=== PATIENT | male | born 1950 | race Caucasian/White ===

== ENCOUNTER 2018-03-06 19:49 | Inpatient (IN) | payer MEDICARE, MEDICAID ==
--- NOTE | 2018-03-06 20:07 | ED Physician Chart ---
ED Chief Complaint/HPI - Patient Information Date Seen:: 03/06/18 Time Seen:: 20:03 Chief Complaint:: AGITATION History of Present Illness:: 67 YR OLD MALE FOR AGITATION FROM [facility] HX OF PSYCH PROBLEMS PT WITH HALUCINATIONS NO CP OR SOB NO NVD Historian:: EMS, Medical Records ED Review of Systems - Review of Systems General/Constitutional: No fever, No chills, No weight loss, No weakness, No diaphoresis, No edema, No loss of appetite Skin: No skin lesions, No rash, No bruising Head: No headache, No light-headedness Eyes: No loss of vision, No pain, No diplopia ENT: No earache, No nasal drainage, No sore throat, No tinnitus Neck: No neck pain, No swelling, No thyromegaly, No stiffness, No mass noted Cardio Vascular: No chest pain, No palpitations, No PND, No orthopnea, No edema Pulmonary: No SOB, No cough, No sputum, No wheezing GI: No nausea, No vomiting, No diarrhea, No pain, No melena, No hematochezia, No constipation, No hematemesis G/U: No dysuria, No frequency, No hematuria Musculoskeletal: No bone or joint pain, No back pain, No muscle pain Endocrine: No polyuria, No polydipsia Psychiatric: No prior psych history, No depression, No anxiety, No suicidal ideation Hematopoietic: No bruising, No lymphadenopathy Allergic/Immuno: No urticaria, No angioedema Neurological: No syncope, No focal symptoms, No weakness, No paresthesia, No headache, No seizure, No dizziness, No confusion, No vertigo ED Past Medical History - Past Medical History Past Medical History: No significant medical hx ED Physical Exam - Physical Examination General/Constitutional: Awake, Well-developed, well-nourished, Alert, No distress, GCS 15, Non-toxic appearing, Ambulatory Head: Atraumatic Eyes: Lids, conjuctiva normal, PERRL, EOMI Skin: Nl inspection, No rash, No skin lesions, No ecchymosis, Well hydrated, No lymphadenopathy ENMT: External ears, nose nl, Nasal exam nl, Lips, teeth, gums nl Neck: Nontender, Full ROM w/o pain, No JVD, No nuchal rigidity, No bruit, No mass, No stridor Respiratory: Nl effort/Exclusion, Clear to Auscultation, No Wheeze/Rhonchi/Rales Cardio Vascular: RRR, No murmur, gallop, rubs, NL S1 S2 GI: No tenderness/rebounding/guarding, No organomegaly, No hernia, Normal BS's, Nondistended, No mass/bruits, No McBurney tenderness : No CVA tenderness Extremities: No tenderness or effusion, Full ROM, normal strength in all extremities, No edema, Normal digits & nails Neuro/Psych: Alert/oriented, DTR's symmetric, Normal sensory exam, Normal motor strength, Judgement/insight normal, Mood normal, Normal gait, No focal deficits Misc: Normal back, No paraspinal tenderness ED Assessment - Assessment General Assessment: AGITATION HALLUCINATION FOR PSYCH EVAL ED Septic Shock - . Is Septic Shock (SBP<90, OR Lactate>4 mmol\L) present?: No ED Discharge Plan - Patient Disposition Admit/Discharge/Transfer: Acute Care w/in this hosp Condition at Disposition: Stable
[2018-03-06 20:40] LABS: % EOSINOPHILS 2.7 % (0.0-5.0); % LYMPHOCYTES 21.6 % (20.0-50.0); % MONOCYTES 5.2 % (2.0-10.0); % NEUTROPHILS 70.5 % (40.0-80.0); EOSINOPHILE ABSOLUTE 0.2 Th/cmm (0.1-0.4); HEMATOCRIT 46.3 % (41.0-60); HEMOGLOBIN 15.6 gm/dL (12-16); LYMPHOCYTE ABSOLUTE 1.7 Th/cmm (1.5-3.0); MEAN CELL VOLUME 88.1 fl (80-99); MEAN CORPUSCULAR HEMOGLOBIN 29.6 pg (27.0-31.0); MEAN CORPUSCULAR HGB CONC 33.6 pg (28.0-36.0); MEAN PLATELET VOLUME 8.6 fl; MONOCYTE ABSOLUTE 0.4 Th/cmm (0.3-1.0); NEUTROPHILE ABSOLUTE 5.4 Th/cmm (1.8-8.0); PLATELET COUNT 201 Th/cmm (150-400); RED BLOOD COUNT 5.25 Mil/cmm (3.80-5.80); WHITE BLOOD COUNT 7.7 Th/cmm (4.8-10.8)
[2018-03-06 20:57] LABS: ALB/GLOB RATIO 1.6 (1.0-1.8); ALBUMIN 4.6 gm/dL (4.2-5.5); ALKALINE PHOSPHATASE 67 U/L (34-104); ANION GAP 9.4 (7.0-16.0); BILIRUBIN,TOTAL 0.9 mg/dL (0.3-1.0); BUN - UREA NITROGEN 28 mg/dL (7-25); CALCIUM SERUM 9.9 mg/dL (8.6-10.3); CARBON DIOXIDE 27.4 mEq/L (21.0-31.0); CHLORIDE 106 mEq/L (98-107); GFR AFRICAN-AMERICAN > 60.0 ml/min (>90); GFR NON AFRICAN-AMERICAN > 60.0 ml/min; GLUCOSE 100 mg/dL (70-105); POTASSIUM SERUM 3.8 mEq/L (3.5-5.1); SGOT 12 U/L (13-39); SGPT/ALT 9 U/L (7-52); SODIUM SERUM 139 mEq/L (136-145); TOTAL PROTEIN,SERUM 7.4 gm/dL (6.0-8.3)
[2018-03-07 00:46] VITALS: BP 109/68
[2018-03-07] MEDS ORDERED: Maalox 30 mL Cup PO PRN (00:46)
[2018-03-07] MEDS ORDERED: Magnesium Hydroxide (MOM) 30 mL UDC PO PRN ×2 (00:46→16:55)
[2018-03-07] MEDS ORDERED: CHOLECALCIFEROL PO SCH (09:00)
[2018-03-07] MEDS: Escitalopram Oxalate 10 MG, Escitalopram Oxalate 5 MG PO SCH (09:42)
[2018-03-07] MEDS: Multivitamin Tab PO SCH (09:42)
--- NOTE | 2018-03-07 10:36 | Diagnostic Imaging Report ---
Portable chest x-ray History: Shortness of breath Allowing for portable technique the heart size is normal. No focal pulmonary parenchymal processes. No hilar or mediastinal abnormalities. Degenerative changes seen to the spine. Impression: No acute abnormalities.
[2018-03-07] MEDS ORDERED: TIMOLOL MALEATE EACH EYE SCH (17:00)
--- NOTE | 2018-03-07 20:39 | History & Physical ---
ADMIT DATE: HISTORY OF PRESENT ILLNESS: The patient is a 67-year-old male with long history of dementia, degenerative joint disease, admitted to [facility] under Dr. Wiseman's service. The patient is a poor historian. No fever, no chills, nausea, no vomiting. PAST MEDICAL HISTORY: Degenerative joint disease, dementia. PAST SURGICAL HISTORY: No recent surgery. ALLERGIES: ASPIRIN. MEDICATIONS: Follow admission reconciliation. SOCIAL HISTORY: No smoking, no alcohol, no drug. FAMILY HISTORY: Noncontributory. REVIEW OF SYSTEMS: IMMUNO SYSTEM: No history of chronic immune disorder. CARDIOVASCULAR SYSTEM: No coronary artery disease. ENDOCRINE SYSTEM: No diabetes or thyroid problem. GASTROINTESTINAL SYSTEM: No upper or lower GI bleeding. NEUROLOGICAL SYSTEM: No seizure disorder. SKELETOMUSCULAR SYSTEM: No muscular dystrophy. HEMATOLOGIC SYSTEM: No bleeding tendencies. RESPIRATORY SYSTEM: No asthma. GENITOURINARY: No dysuria or hematuria. PHYSICAL EXAMINATION: GENERAL: The patient is awake, not coherent. VITAL SIGNS: His temperature is 98.2, heart rate 68, blood pressure of 105/57. HEENT: Normocephalic. Pupils reacting equally to light and accommodation. Sclerae are clear. NECK: Supple. Negative for lymphadenopathy, JVD or bruit. CHEST: Entry of air bilateral normal. No rhonchi or wheezing. HEART: S1, S2 normal. No gallop rhythm. ABDOMEN: Soft, bowel sounds positive. EXTREMITIES: No edema. NEUROLOGICAL: He is awake, alert, not fully oriented. No focal motor or sensory deficit. ASSESSMENT: 1. Degenerative joint disease. 2. Dementia. 3. Psychosis. PLAN: The patient admitted to the hospital under Dr. Wiseman's service. The medical problem addressed during hospitalization is psychosis and depression. Medical problem to be addressed at discharge is degenerative joint disease, dementia. The patient is clinically stable for activity. Thank you, Dr. Wiseman, for asking me to see your patient. JOB# [id number]
--- NOTE | 2018-03-07 22:49 | Psychiatric Evaluation ---
DATE OF SERVICE: 03/07/2018 JUSTIFICATION FOR HOSPITALIZATION: The patient brought in from a long-term hallucinating, compensating from a psychiatric perspective. HISTORY OF PRESENT ILLNESS: A 67-year-old male agitated from a long-term. He states he does not know why he is here. Denies depression, denies anxiety. It seems that he was decompensating, hallucinating. The patient notes he is sleeping "okay" eating "okay." Staff noting he appears fatigue, withdrawn, poor orientation as noted. The patient was apparently also quite aggressive at the long-term. PAST PSYCHIATRIC HISTORY: Unclear, but he states he has been to the medical center hospitals before. Under medical please see H and P. SOCIAL HISTORY: Born in [place]. He states that he is . He has 2 children. MEDICATIONS: Noted. MENTAL STATUS EXAMINATION: Stated age. Fair eye contact. Speech within normal limits. Affect flat. Thought processes were somewhat disoriented. Denying any overt SI or HI. Denying any overt psychotic symptoms. Insight and judgment questionable. PROVISIONAL DIAGNOSES: Mood, unspecified; anxiety, unspecified; psychosis, unspecified. Under medical please see full H and P. ESTIMATED LENGTH OF STAY: 5-7 days. ASSESSMENT: The patient requiring hospitalization, aggressive, agitated, hallucinations. PLAN: We will increase collateral, monitor the patient closely, consider medication management. TREATMENT PLAN: Includes group as well as milieu therapy. CONDITIONS FOR DISCHARGE: Improved mood, improved affect, cessation of his psychotic symptoms. [facility]# [id number]
--- NOTE | 2018-03-08 06:38 | Progress Notes ---
DATE: 03/08/2018 SUBJECTIVE: The patient is currently resting comfortably, alert and oriented to self, place, noted with poor insight, at times depressed, withdrawn, isolative, guarded, does not know why he is in the hospital. No agitation over the past 24 hours. The patient has history of dementia, seems to have history of traumatic brain injury as well, initially admitted due to agitation, decompensating, hallucinating. States mood is "okay." Medication seems to be well tolerated. Medications were noted. Currently on Lexapro, Aricept, Namenda. ASSESSMENT: The patient is calm, remains impulsive, highly unpredictable, coming in for agitation and psychotic behaviors. PLAN: We will continue to monitor, adjust and titrate medications as tolerated. The patient is to follow up with Dr. Wiseman in the morning. JOB# [id number]
[2018-03-08] MEDS: Multivitamin Tab PO SCH (08:12)
[2018-03-08] MEDS: Escitalopram Oxalate 10 MG, Escitalopram Oxalate 5 MG PO SCH ×2 (08:12→08:13)
--- NOTE | 2018-03-08 16:13 | Internal Medicine Prog Note ---
Internal Medicine Subjective - Subjective Service Date: 03/08/18 Patient is:: in bed Per staff patient has:: no adverse event Internal Medicine Objective - Results Result Diagrams: 03/06/18 20:25 03/06/18 20:25 Recent Labs: Laboratory Last Values WBC 7.7 Th/cmm (4.8-10.8) 03/06/18 20:25 RBC 5.25 Mil/cmm (3.80-5.80) 03/06/18 20:25 Hgb 15.6 gm/dL (12-16) 03/06/18 20:25 Hct 46.3 % (41.0-60) 03/06/18 20:25 MCV 88.1 fl (80-99) 03/06/18 20:25 MCH 29.6 pg (27.0-31.0) 03/06/18 20:25 MCHC Differential 33.6 pg (28.0-36.0) 03/06/18 20:25 RDW 13.0 % (11.5-20.0) 03/06/18 20:25 Plt Count 201 Th/cmm (150-400) 03/06/18 20:25 MPV 8.6 fl 03/06/18 20:25 Neutrophils % 70.5 % (40.0-80.0) 03/06/18 20:25 Lymphocytes % 21.6 % (20.0-50.0) 03/06/18 20:25 Monocytes % 5.2 % (2.0-10.0) 03/06/18 20:25 Eosinophils % 2.7 % (0.0-5.0) 03/06/18 20:25 Basophils % 0.0 % (0.0-2.0) 03/06/18 20:25 Sodium 139 mEq/L (136-145) 03/06/18 20:25 Potassium 3.8 mEq/L (3.5-5.1) 03/06/18 20:25 Chloride 106 mEq/L (98-107) 03/06/18 20:25 Carbon Dioxide 27.4 mEq/L (21.0-31.0) 03/06/18 20:25 Anion Gap 9.4 (7.0-16.0) 03/06/18 20:25 BUN 28 mg/dL (7-25) H 03/06/18 20:25 Creatinine 1.0 mg/dL (0.7-1.3) 03/06/18 20:25 Est GFR ( Amer) > 60.0 ml/min (>90) 03/06/18 20:25 Est GFR (Non-Af Amer) > 60.0 ml/min 03/06/18 20:25 BUN/Creatinine Ratio 28.0 03/06/18 20:25 Glucose 100 mg/dL (70-105) 03/06/18 20:25 Calcium 9.9 mg/dL (8.6-10.3) 03/06/18 20:25 Total Bilirubin 0.9 mg/dL (0.3-1.0) 03/06/18 20:25 AST 12 U/L (13-39) L 03/06/18 20:25 ALT 9 U/L (7-52) 03/06/18 20:25 Alkaline Phosphatase 67 U/L (34-104) 03/06/18 20:25 Total Protein 7.4 gm/dL (6.0-8.3) 03/06/18 20:25 Albumin 4.6 gm/dL (4.2-5.5) 03/06/18 20:25 Globulin 2.8 gm/dL 03/06/18 20:25 Albumin/Globulin Ratio 1.6 (1.0-1.8) 03/06/18 20:25 - Physical Exam Vitals and I&O: Vital Signs Temp 98.4 F 03/08/18 14:45 Pulse 60 03/08/18 14:45 Resp 18 03/08/18 14:45 BP 106/67 03/08/18 14:45 Pulse Ox 97 03/08/18 14:45 Intake & Output 03/07/18 03/08/18 03/08/18 18:59 06:59 18:59 Intake Total 1000 Balance 1000 Intake: Oral 1000 Other: # Voids 4 # Bowel Movements 1 Active Medications: Current Medications Acetaminophen (Tylenol) 650 mg PO Q4HR PRN PRN Reason: Mild Pain / Temp above 100 Stop: 05/06/18 00:45 Acetaminophen (Tylenol) 650 mg PO Q4HR PRN PRN Reason: Pain or Fever >101 Stop: 05/06/18 16:54 Al Hydrox/Mg Hydrox/Simethicone (Maalox) 30 ml PO Q4HR PRN PRN Reason: GI DISTRESS Stop: 05/06/18 00:45 Cholecalciferol (Vitamin D3) 3,000 iu PO DAILY [facility] Stop: 05/06/18 08:59 Last Admin: 03/08/18 08:12 Dose: 3,000 iu Docusate Sodium (Colace) 100 mg PO BID [facility] Stop: 05/06/18 08:59 Last Admin: 03/08/18 08:13 Dose: 100 mg Donepezil HCl (Aricept) 10 mg PO HS [facility] Stop: 05/06/18 20:59 Last Admin: 03/07/18 21:23 Dose: 10 mg Escitalopram Oxalate 10 mg/ (Escitalopram Oxalate 5 mg) 15 mg PO DAILY [facility] Stop: 05/06/18 08:59 Last Admin: 03/08/18 08:13 Dose: 15 mg Lorazepam (Ativan) 0.5 mg PO Q4HR PRN; Protocol PRN Reason: Anxiety/Agitation Stop: 04/06/18 00:45 Magnesium Hydroxide (Milk Of Magnesia) 30 ml PO HS PRN PRN Reason: Constipation Magnesium Hydroxide (Milk Of Magnesia) 30 ml PO DAILY PRN PRN Reason: Constipation Stop: 05/06/18 16:54 Memantine (Namenda) 10 mg PO BID [facility] Stop: 05/06/18 08:59 Last Admin: 03/08/18 08:12 Dose: 10 mg Miscellaneous (Timolol Maleate/Pf [Timoptic 0.5% Ocudose Drop]) 1 drop EACH EYE BID [facility] Stop: 05/06/18 16:59 Multivitamins/Vitamin C (Theragran) 1 tab PO DAILY [facility] Stop: 05/06/18 08:59 Last Admin: 03/08/18 08:12 Dose: 1 tab Thiamine HCl (Vitamin B1) 100 mg PO DAILY [facility] Stop: 05/06/18 08:59 Last Admin: 03/08/18 08:12 Dose: 100 mg Timolol Maleate (Timoptic 0.5% Ophth Soln) 1 drop EACH EYE BID [facility] Stop: 05/06/18 08:59 Last Admin: 03/08/18 08:13 Dose: 1 drop General: demented HEENT: NC/AT, PERRLA, EOMI, anicteric sclerae, throat clear Neck: Supple, No JVD, No thyromegaly, +2 carotid pulse wo bruit, No LAD Lungs: CTAB Cardiovascular: Normal S1, Normal S2, without murmur Abdomen: soft, non-tender, non-distended Extremities: clear Neurological: no change Internal Medicine Assmt/Plan - Assessment Assessment: 1.DJD. 2.DEMENTIA. 3.PSYCHOSIS. - Plan Plan: CONTINUE ON CURRENT MEDICATION AND DIET.
[2018-03-09] MEDS: Escitalopram Oxalate 10 MG, Escitalopram Oxalate 5 MG PO SCH (08:47)
[2018-03-09] MEDS: Multivitamin Tab PO SCH (08:48)
--- NOTE | 2018-03-09 18:07 | Internal Medicine Prog Note ---
Internal Medicine Subjective - Subjective Service Date: 03/09/18 Patient seen and examined:: with staff Patient is:: in bed Per staff patient has:: no adverse event Internal Medicine Objective - Results Result Diagrams: 03/06/18 20:25 03/06/18 20:25 Recent Labs: Laboratory Last Values WBC 7.7 Th/cmm (4.8-10.8) 03/06/18 20:25 RBC 5.25 Mil/cmm (3.80-5.80) 03/06/18 20:25 Hgb 15.6 gm/dL (12-16) 03/06/18 20:25 Hct 46.3 % (41.0-60) 03/06/18 20:25 MCV 88.1 fl (80-99) 03/06/18 20:25 MCH 29.6 pg (27.0-31.0) 03/06/18 20:25 MCHC Differential 33.6 pg (28.0-36.0) 03/06/18 20:25 RDW 13.0 % (11.5-20.0) 03/06/18 20:25 Plt Count 201 Th/cmm (150-400) 03/06/18 20:25 MPV 8.6 fl 03/06/18 20:25 Neutrophils % 70.5 % (40.0-80.0) 03/06/18 20:25 Lymphocytes % 21.6 % (20.0-50.0) 03/06/18 20:25 Monocytes % 5.2 % (2.0-10.0) 03/06/18 20:25 Eosinophils % 2.7 % (0.0-5.0) 03/06/18 20:25 Basophils % 0.0 % (0.0-2.0) 03/06/18 20:25 Sodium 139 mEq/L (136-145) 03/06/18 20:25 Potassium 3.8 mEq/L (3.5-5.1) 03/06/18 20:25 Chloride 106 mEq/L (98-107) 03/06/18 20:25 Carbon Dioxide 27.4 mEq/L (21.0-31.0) 03/06/18 20:25 Anion Gap 9.4 (7.0-16.0) 03/06/18 20:25 BUN 28 mg/dL (7-25) H 03/06/18 20:25 Creatinine 1.0 mg/dL (0.7-1.3) 03/06/18 20:25 Est GFR ( Amer) > 60.0 ml/min (>90) 03/06/18 20:25 Est GFR (Non-Af Amer) > 60.0 ml/min 03/06/18 20:25 BUN/Creatinine Ratio 28.0 03/06/18 20:25 Glucose 100 mg/dL (70-105) 03/06/18 20:25 Calcium 9.9 mg/dL (8.6-10.3) 03/06/18 20:25 Total Bilirubin 0.9 mg/dL (0.3-1.0) 03/06/18 20:25 AST 12 U/L (13-39) L 03/06/18 20:25 ALT 9 U/L (7-52) 03/06/18 20:25 Alkaline Phosphatase 67 U/L (34-104) 03/06/18 20:25 Total Protein 7.4 gm/dL (6.0-8.3) 03/06/18 20:25 Albumin 4.6 gm/dL (4.2-5.5) 03/06/18 20:25 Globulin 2.8 gm/dL 03/06/18 20:25 Albumin/Globulin Ratio 1.6 (1.0-1.8) 03/06/18 20:25 - Physical Exam Vitals and I&O: Vital Signs Temp 98.6 F 03/09/18 14:58 Pulse 69 03/09/18 14:58 Resp 19 03/09/18 14:58 BP 117/69 03/09/18 14:58 Pulse Ox 98 03/09/18 14:58 Intake & Output 03/08/18 03/09/18 03/09/18 18:59 06:59 18:59 Intake Total 1200 240 Balance 1200 240 Intake: Oral 1200 240 Other: # Voids 4 1 # Bowel Movements 1 0 Active Medications: Current Medications Acetaminophen (Tylenol) 650 mg PO Q4HR PRN PRN Reason: Mild Pain / Temp above 100 Stop: 05/06/18 00:45 Al Hydrox/Mg Hydrox/Simethicone (Maalox) 30 ml PO Q4HR PRN PRN Reason: GI DISTRESS Stop: 05/06/18 00:45 Aripiprazole (Abilify) 5 mg PO DAILY [facility]; Protocol Stop: 05/09/18 08:59 Cholecalciferol (Vitamin D3) 3,000 iu PO DAILY [facility] Stop: 05/06/18 08:59 Last Admin: 03/09/18 08:47 Dose: 3,000 iu Docusate Sodium (Colace) 100 mg PO BID [facility] Stop: 05/06/18 08:59 Last Admin: 03/09/18 16:57 Dose: 100 mg Donepezil HCl (Aricept) 10 mg PO HS [facility] Stop: 05/06/18 20:59 Last Admin: 03/08/18 21:14 Dose: 10 mg Escitalopram Oxalate 10 mg/ (Escitalopram Oxalate 5 mg) 15 mg PO DAILY [facility] Stop: 05/06/18 08:59 Last Admin: 03/09/18 08:47 Dose: 15 mg Lorazepam (Ativan) 0.5 mg PO Q4HR PRN; Protocol PRN Reason: Anxiety/Agitation Stop: 04/06/18 00:45 Magnesium Hydroxide (Milk Of Magnesia) 30 ml PO DAILY PRN PRN Reason: Constipation Stop: 05/06/18 16:54 Memantine (Namenda) 10 mg PO BID [facility] Stop: 05/06/18 08:59 Last Admin: 03/09/18 16:57 Dose: 10 mg Multivitamins/Vitamin C (Theragran) 1 tab PO DAILY [facility] Stop: 05/06/18 08:59 Last Admin: 03/09/18 08:48 Dose: 1 tab Thiamine HCl (Vitamin B1) 100 mg PO DAILY [facility] Stop: 05/06/18 08:59 Last Admin: 03/09/18 08:47 Dose: 100 mg Timolol Maleate (Timoptic 0.5% Ophth Soln) 1 drop EACH EYE BID [facility] Stop: 05/06/18 08:59 Last Admin: 03/09/18 16:57 Dose: 1 drop General: demented HEENT: NC/AT, PERRLA, EOMI, anicteric sclerae, throat clear Neck: Supple, No JVD, No thyromegaly, +2 carotid pulse wo bruit, No LAD Lungs: CTAB Cardiovascular: Normal S1, Normal S2, without murmur Abdomen: soft, non-tender, non-distended Extremities: clear Neurological: no change Internal Medicine Assmt/Plan - Assessment Assessment: 1.DJD. 2.DEMENTIA. 3.PSYCHOSIS. - Plan Plan: CONTINUE ON CURRENT MEDICATION AND DIET.
--- NOTE | 2018-03-09 21:40 | Progress Notes ---
DATE: 03/09/2018 Case was discussed with staff of the patient, reviewed records. This is a well-known case to me. I have been treating him at [place]. He is a 67-year-old male who was admitted on 03/06/2018. He did not know why he is here. The patient with a history of depression, prior suicide attempt. Apparently, his son killed himself. He has been decompensating, hallucinating. He reported that he sleeps well, eats well. The patient with a significant history of paranoia. The patient was restarted on his medication and he is on Aricept 10 mg at bedtime, Lexapro 15 mg a day and HE IS ALLERGIC TO ASPIRIN. I will be initiating Abilify on him because of his psychosis, paranoia, confusion. The patient was unable to question regarding sleep, appetite, unable to make safe plan for self-care, gets easily agitated. We will continue to work with the patient in group therapy, milieu therapy, adjust medication as needed. Medications list reviewed from the records. JOB# [id number]
[2018-03-10] MEDS: Escitalopram Oxalate 10 MG, Escitalopram Oxalate 5 MG PO SCH (08:37)
[2018-03-10] MEDS: Multivitamin Tab PO SCH (08:37)
--- NOTE | 2018-03-10 21:27 | Internal Medicine Prog Note ---
Internal Medicine Subjective - Subjective Service Date: 03/10/18 Patient seen and examined:: with staff Patient is:: in bed Per staff patient has:: no adverse event Internal Medicine Objective - Results Result Diagrams: 03/06/18 20:25 03/06/18 20:25 Recent Labs: Laboratory Last Values WBC 7.7 Th/cmm (4.8-10.8) 03/06/18 20:25 RBC 5.25 Mil/cmm (3.80-5.80) 03/06/18 20:25 Hgb 15.6 gm/dL (12-16) 03/06/18 20:25 Hct 46.3 % (41.0-60) 03/06/18 20:25 MCV 88.1 fl (80-99) 03/06/18 20:25 MCH 29.6 pg (27.0-31.0) 03/06/18 20:25 MCHC Differential 33.6 pg (28.0-36.0) 03/06/18 20:25 RDW 13.0 % (11.5-20.0) 03/06/18 20:25 Plt Count 201 Th/cmm (150-400) 03/06/18 20:25 MPV 8.6 fl 03/06/18 20:25 Neutrophils % 70.5 % (40.0-80.0) 03/06/18 20:25 Lymphocytes % 21.6 % (20.0-50.0) 03/06/18 20:25 Monocytes % 5.2 % (2.0-10.0) 03/06/18 20:25 Eosinophils % 2.7 % (0.0-5.0) 03/06/18 20:25 Basophils % 0.0 % (0.0-2.0) 03/06/18 20:25 Sodium 139 mEq/L (136-145) 03/06/18 20:25 Potassium 3.8 mEq/L (3.5-5.1) 03/06/18 20:25 Chloride 106 mEq/L (98-107) 03/06/18 20:25 Carbon Dioxide 27.4 mEq/L (21.0-31.0) 03/06/18 20:25 Anion Gap 9.4 (7.0-16.0) 03/06/18 20:25 BUN 28 mg/dL (7-25) H 03/06/18 20:25 Creatinine 1.0 mg/dL (0.7-1.3) 03/06/18 20:25 Est GFR ( Amer) > 60.0 ml/min (>90) 03/06/18 20:25 Est GFR (Non-Af Amer) > 60.0 ml/min 03/06/18 20:25 BUN/Creatinine Ratio 28.0 03/06/18 20:25 Glucose 100 mg/dL (70-105) 03/06/18 20:25 Calcium 9.9 mg/dL (8.6-10.3) 03/06/18 20:25 Total Bilirubin 0.9 mg/dL (0.3-1.0) 03/06/18 20:25 AST 12 U/L (13-39) L 03/06/18 20:25 ALT 9 U/L (7-52) 03/06/18 20:25 Alkaline Phosphatase 67 U/L (34-104) 03/06/18 20:25 Total Protein 7.4 gm/dL (6.0-8.3) 03/06/18 20:25 Albumin 4.6 gm/dL (4.2-5.5) 03/06/18 20:25 Globulin 2.8 gm/dL 03/06/18 20:25 Albumin/Globulin Ratio 1.6 (1.0-1.8) 03/06/18 20:25 - Physical Exam Vitals and I&O: Vital Signs Temp 97.4 F 03/10/18 19:41 Pulse 73 03/10/18 19:41 Resp 20 03/10/18 19:41 BP 107/72 03/10/18 19:41 Pulse Ox 96 03/10/18 19:41 Intake & Output 03/10/18 03/10/18 03/11/18 06:59 18:59 06:59 Intake Total 120 Balance 120 Intake: Oral 120 Other: # Voids 1 # Bowel Movements 1 Active Medications: Current Medications Acetaminophen (Tylenol) 650 mg PO Q4HR PRN PRN Reason: Mild Pain / Temp above 100 Stop: 05/06/18 00:45 Al Hydrox/Mg Hydrox/Simethicone (Maalox) 30 ml PO Q4HR PRN PRN Reason: GI DISTRESS Stop: 05/06/18 00:45 Aripiprazole (Abilify) 5 mg PO DAILY [facility]; Protocol Stop: 05/09/18 08:59 Last Admin: 03/10/18 08:38 Dose: 5 mg Cholecalciferol (Vitamin D3) 3,000 iu PO DAILY [facility] Stop: 05/06/18 08:59 Last Admin: 03/10/18 08:38 Dose: 3,000 iu Docusate Sodium (Colace) 100 mg PO BID [facility] Stop: 05/06/18 08:59 Last Admin: 03/10/18 16:51 Dose: 100 mg Donepezil HCl (Aricept) 10 mg PO HS [facility] Stop: 05/06/18 20:59 Last Admin: 03/10/18 21:12 Dose: 10 mg Escitalopram Oxalate 10 mg/ (Escitalopram Oxalate 5 mg) 15 mg PO DAILY [facility] Stop: 05/06/18 08:59 Last Admin: 03/10/18 08:37 Dose: 15 mg Lorazepam (Ativan) 0.5 mg PO Q4HR PRN; Protocol PRN Reason: Anxiety/Agitation Stop: 04/06/18 00:45 Magnesium Hydroxide (Milk Of Magnesia) 30 ml PO DAILY PRN PRN Reason: Constipation Stop: 05/06/18 16:54 Memantine (Namenda) 10 mg PO BID [facility] Stop: 05/06/18 08:59 Last Admin: 03/10/18 16:51 Dose: 10 mg Multivitamins/Vitamin C (Theragran) 1 tab PO DAILY [facility] Stop: 05/06/18 08:59 Last Admin: 03/10/18 08:37 Dose: 1 tab Thiamine HCl (Vitamin B1) 100 mg PO DAILY [facility] Stop: 05/06/18 08:59 Last Admin: 03/10/18 08:38 Dose: 100 mg Timolol Maleate (Timoptic 0.5% Ophth Soln) 1 drop EACH EYE BID [facility] Stop: 05/06/18 08:59 Last Admin: 03/10/18 16:51 Dose: 1 drop General: demented HEENT: NC/AT, PERRLA, EOMI, anicteric sclerae, throat clear Neck: Supple, No JVD, No thyromegaly, +2 carotid pulse wo bruit, No LAD Lungs: CTAB Cardiovascular: Normal S1, Normal S2, without murmur Abdomen: soft, non-tender, non-distended Extremities: clear Neurological: no change Internal Medicine Assmt/Plan - Assessment Assessment: 1.DJD. 2.DEMENTIA. 3.PSYCHOSIS. - Plan Plan: CONTINUE ON CURRENT MEDICATION AND DIET.
--- NOTE | 2018-03-10 22:17 | Progress Notes ---
DATE: 03/10/2018 SUBJECTIVE: Case was discussed with staff of the patient, reviewed records. The patient continues to be internally preoccupied, staying to himself. Continues to be unpredictable, impulsive, tolerated adding the Abilify yesterday because of his being paranoid. He continues to be unpredictable, continues to be confused, and unable to make safe plan for self-care. No side effects with the medication, no sedation, no nausea, and no extrapyramidal symptoms. We will continue to work with the patient in group therapy, milieu therapy, and adjust the medications as needed. JOB# [id number]
[2018-03-11] MEDS: Escitalopram Oxalate 10 MG, Escitalopram Oxalate 5 MG PO SCH (08:36)
[2018-03-11] MEDS: Multivitamin Tab PO SCH (08:36)
--- NOTE | 2018-03-11 20:27 | Internal Medicine Prog Note ---
Internal Medicine Subjective - Subjective Service Date: 03/11/18 Patient seen and examined:: with staff Patient is:: in bed Per staff patient has:: no adverse event Internal Medicine Objective - Results Result Diagrams: 03/06/18 20:25 03/06/18 20:25 Recent Labs: Laboratory Last Values WBC 7.7 Th/cmm (4.8-10.8) 03/06/18 20:25 RBC 5.25 Mil/cmm (3.80-5.80) 03/06/18 20:25 Hgb 15.6 gm/dL (12-16) 03/06/18 20:25 Hct 46.3 % (41.0-60) 03/06/18 20:25 MCV 88.1 fl (80-99) 03/06/18 20:25 MCH 29.6 pg (27.0-31.0) 03/06/18 20:25 MCHC Differential 33.6 pg (28.0-36.0) 03/06/18 20:25 RDW 13.0 % (11.5-20.0) 03/06/18 20:25 Plt Count 201 Th/cmm (150-400) 03/06/18 20:25 MPV 8.6 fl 03/06/18 20:25 Neutrophils % 70.5 % (40.0-80.0) 03/06/18 20:25 Lymphocytes % 21.6 % (20.0-50.0) 03/06/18 20:25 Monocytes % 5.2 % (2.0-10.0) 03/06/18 20:25 Eosinophils % 2.7 % (0.0-5.0) 03/06/18 20:25 Basophils % 0.0 % (0.0-2.0) 03/06/18 20:25 Sodium 139 mEq/L (136-145) 03/06/18 20:25 Potassium 3.8 mEq/L (3.5-5.1) 03/06/18 20:25 Chloride 106 mEq/L (98-107) 03/06/18 20:25 Carbon Dioxide 27.4 mEq/L (21.0-31.0) 03/06/18 20:25 Anion Gap 9.4 (7.0-16.0) 03/06/18 20:25 BUN 28 mg/dL (7-25) H 03/06/18 20:25 Creatinine 1.0 mg/dL (0.7-1.3) 03/06/18 20:25 Est GFR ( Amer) > 60.0 ml/min (>90) 03/06/18 20:25 Est GFR (Non-Af Amer) > 60.0 ml/min 03/06/18 20:25 BUN/Creatinine Ratio 28.0 03/06/18 20:25 Glucose 100 mg/dL (70-105) 03/06/18 20:25 Calcium 9.9 mg/dL (8.6-10.3) 03/06/18 20:25 Total Bilirubin 0.9 mg/dL (0.3-1.0) 03/06/18 20:25 AST 12 U/L (13-39) L 03/06/18 20:25 ALT 9 U/L (7-52) 03/06/18 20:25 Alkaline Phosphatase 67 U/L (34-104) 03/06/18 20:25 Total Protein 7.4 gm/dL (6.0-8.3) 03/06/18 20:25 Albumin 4.6 gm/dL (4.2-5.5) 03/06/18 20:25 Globulin 2.8 gm/dL 03/06/18 20:25 Albumin/Globulin Ratio 1.6 (1.0-1.8) 03/06/18 20:25 - Physical Exam Vitals and I&O: Vital Signs Temp 98.0 F 03/11/18 20:00 Pulse 69 03/11/18 20:00 Resp 19 03/11/18 20:00 BP 127/76 03/11/18 20:00 Pulse Ox 98 03/11/18 20:00 Intake & Output 03/11/18 03/11/18 03/12/18 06:59 18:59 06:59 Intake Total 120 Output Total 1 Balance 120 -1 Intake: Oral 120 Output: Stool 1 Other: # Voids 1 3 # Bowel Movements 1 Active Medications: Current Medications Acetaminophen (Tylenol) 650 mg PO Q4HR PRN PRN Reason: Mild Pain / Temp above 100 Stop: 05/06/18 00:45 Al Hydrox/Mg Hydrox/Simethicone (Maalox) 30 ml PO Q4HR PRN PRN Reason: GI DISTRESS Stop: 05/06/18 00:45 Aripiprazole (Abilify) 5 mg PO DAILY [facility]; Protocol Stop: 05/09/18 08:59 Last Admin: 03/11/18 08:36 Dose: 5 mg Cholecalciferol (Vitamin D3) 3,000 iu PO DAILY [facility] Stop: 05/06/18 08:59 Last Admin: 03/11/18 08:37 Dose: 3,000 iu Docusate Sodium (Colace) 100 mg PO BID [facility] Stop: 05/06/18 08:59 Last Admin: 03/11/18 17:55 Dose: Not Given Donepezil HCl (Aricept) 10 mg PO HS [facility] Stop: 05/06/18 20:59 Last Admin: 03/10/18 21:12 Dose: 10 mg Escitalopram Oxalate 10 mg/ (Escitalopram Oxalate 5 mg) 15 mg PO DAILY [facility] Stop: 05/06/18 08:59 Last Admin: 03/11/18 08:36 Dose: 15 mg Lorazepam (Ativan) 0.5 mg PO Q4HR PRN; Protocol PRN Reason: Anxiety/Agitation Stop: 04/06/18 00:45 Magnesium Hydroxide (Milk Of Magnesia) 30 ml PO DAILY PRN PRN Reason: Constipation Stop: 05/06/18 16:54 Memantine (Namenda) 10 mg PO BID [facility] Stop: 05/06/18 08:59 Last Admin: 03/11/18 17:55 Dose: Not Given Multivitamins/Vitamin C (Theragran) 1 tab PO DAILY [facility] Stop: 05/06/18 08:59 Last Admin: 03/11/18 08:36 Dose: 1 tab Thiamine HCl (Vitamin B1) 100 mg PO DAILY [facility] Stop: 05/06/18 08:59 Last Admin: 03/11/18 08:40 Dose: 100 mg Timolol Maleate (Timoptic 0.5% Ophth Soln) 1 drop EACH EYE BID [facility] Stop: 05/06/18 08:59 Last Admin: 03/11/18 17:55 Dose: Not Given General: demented HEENT: NC/AT, PERRLA, EOMI, anicteric sclerae, throat clear Neck: Supple, No JVD, No thyromegaly, +2 carotid pulse wo bruit, No LAD Lungs: CTAB Cardiovascular: Normal S1, Normal S2, without murmur Abdomen: soft, non-tender, non-distended Extremities: clear Neurological: no change Internal Medicine Assmt/Plan - Assessment Assessment: 1.DJD. 2.DEMENTIA. 3.PSYCHOSIS. - Plan Plan: CONTINUE ON CURRENT MEDICATION AND DIET. Nutritional Asmnt/Malnutr-PDOC - Dietary Evaluation Malnutrition Findings (Please click <Entered> for more info): Nutritional Asmnt/Malnutrition Start: 03/11/18 14: 48 Text: Status: Complete Freq: Protocol: Document 03/11/18 14:48 LCHENG (Rec: 03/11/18 14:55 LCHENG [email or web address]) Nutritional Asmnt/Malnutrition Patient General Information Nutritional Screening Moderate Risk Diagnosis psychosis agitation Pertinent Medical Hx/Surgical Hx dementia, DJD Subjective Information Pt not available in room at time of visit. Per EMR, PO intake 100% of meals. Current Diet Order/ Nutrition Support regular Pertinent Medications vit D3, colace, theragran, vit B1 Pertinent Labs 03/06 BUN 28 Nutritional Hx/Data Height 1.68 m Height (Calculated Centimeters) 167.6 Current Weight (lbs) 81.647 kg Weight (Calculated Kilograms) 81.6 Weight (Calculated Grams) 53292.6 [place] Body Weight 142 Body Mass Index (BMI) 29.0 Weight Status Overweight GI Symptoms GI Symptoms None Last BM 03/10 Difficult in: None Skin Integrity/Comment: intact Current %PO Good (75-100%) Estimated Nutritional Goals BEE in Kcals: Using Current wt Calories/Kcals/Kg 23-27 Kcals Calculated 1911-4397 Protein: Using Current wt Protein g/k.8 Protein Calculated 66 Fluid: ml 1886-2214ml (1ml/kcal) Nutritional Problem No current Nutrition Prob Problem N/A Malnutrition Alert Is there a minimum of two criteria No selected? Query Text:Check all the applicable criteria. A minimum of two criteria are recommended for diagnosis of either severe or non-severe malnutrition. Malnutrition Related to Morbid Obesity Malnutrition related to morbid obesity No Intervention/Recommendation Comments 1. Continue with regular diet as ordered. 2. Monitor PO intake, wt, labs and skin integrity 3. F/U as low risk in 7 days, 03/18 Expected Outcomes/Goals Expected Outcomes/Goals 1. PO intake to meet at least 75% of nutritional needs. 2. Wt stability, skin to remain intact, labs to approach WNL.
--- NOTE | 2018-03-11 23:42 | Progress Notes ---
DATE: 03/11/2018 SUBJECTIVE: Case was discussed with staff of the patient, reviewed records. The patient continues to be isolating himself, somewhat paranoid. He is minimizing any current intent to harm himself or anybody; however, he has a history of prior suicide attempt. His son killed himself. So, basically he is at high risk, but he is currently denying any current intent to harm himself. He is sleeping better and eating better. He tolerated the Abilify with no side effects, no sedation, no nausea, and no extrapyramidal symptoms. We will continue to work with the patient in group therapy, milieu therapy, and adjust the medications as needed. [facility]# [id number]
[2018-03-12] MEDS: Multivitamin Tab PO SCH (08:19)
[2018-03-12] MEDS: Escitalopram Oxalate 10 MG, Escitalopram Oxalate 5 MG PO SCH (08:19)
--- NOTE | 2018-03-12 16:00 | Progress Notes ---
DATE: 03/12/2018 SUBJECTIVE: Case was discussed with staff of the patient, reviewed records. The patient continues to stay to himself, staying in bed. He is confused, does not know the date, unable to make safe plan for self-care or participate in meaningful conversation. Continues to have poor insight, unpredictable and impulsive. We will continue the patient in group therapy, milieu therapy, and adjust the medications as needed. [facility]# [id number]
--- NOTE | 2018-03-12 23:16 | Internal Medicine Prog Note ---
Internal Medicine Subjective - Subjective Service Date: 03/12/18 Patient is:: in bed Per staff patient has:: no adverse event Internal Medicine Objective - Results Result Diagrams: 03/06/18 20:25 03/06/18 20:25 Recent Labs: Laboratory Last Values WBC 7.7 Th/cmm (4.8-10.8) 03/06/18 20:25 RBC 5.25 Mil/cmm (3.80-5.80) 03/06/18 20:25 Hgb 15.6 gm/dL (12-16) 03/06/18 20:25 Hct 46.3 % (41.0-60) 03/06/18 20:25 MCV 88.1 fl (80-99) 03/06/18 20:25 MCH 29.6 pg (27.0-31.0) 03/06/18 20:25 MCHC Differential 33.6 pg (28.0-36.0) 03/06/18 20:25 RDW 13.0 % (11.5-20.0) 03/06/18 20:25 Plt Count 201 Th/cmm (150-400) 03/06/18 20:25 MPV 8.6 fl 03/06/18 20:25 Neutrophils % 70.5 % (40.0-80.0) 03/06/18 20:25 Lymphocytes % 21.6 % (20.0-50.0) 03/06/18 20:25 Monocytes % 5.2 % (2.0-10.0) 03/06/18 20:25 Eosinophils % 2.7 % (0.0-5.0) 03/06/18 20:25 Basophils % 0.0 % (0.0-2.0) 03/06/18 20:25 Sodium 139 mEq/L (136-145) 03/06/18 20:25 Potassium 3.8 mEq/L (3.5-5.1) 03/06/18 20:25 Chloride 106 mEq/L (98-107) 03/06/18 20:25 Carbon Dioxide 27.4 mEq/L (21.0-31.0) 03/06/18 20:25 Anion Gap 9.4 (7.0-16.0) 03/06/18 20:25 BUN 28 mg/dL (7-25) H 03/06/18 20:25 Creatinine 1.0 mg/dL (0.7-1.3) 03/06/18 20:25 Est GFR ( Amer) > 60.0 ml/min (>90) 03/06/18 20:25 Est GFR (Non-Af Amer) > 60.0 ml/min 03/06/18 20:25 BUN/Creatinine Ratio 28.0 03/06/18 20:25 Glucose 100 mg/dL (70-105) 03/06/18 20:25 Calcium 9.9 mg/dL (8.6-10.3) 03/06/18 20:25 Total Bilirubin 0.9 mg/dL (0.3-1.0) 03/06/18 20:25 AST 12 U/L (13-39) L 03/06/18 20:25 ALT 9 U/L (7-52) 03/06/18 20:25 Alkaline Phosphatase 67 U/L (34-104) 03/06/18 20:25 Total Protein 7.4 gm/dL (6.0-8.3) 03/06/18 20:25 Albumin 4.6 gm/dL (4.2-5.5) 03/06/18 20:25 Globulin 2.8 gm/dL 03/06/18 20:25 Albumin/Globulin Ratio 1.6 (1.0-1.8) 03/06/18 20:25 - Physical Exam Vitals and I&O: Vital Signs Temp 98.4 F 03/12/18 20:00 Pulse 61 03/12/18 20:00 Resp 19 03/12/18 20:00 BP 118/72 03/12/18 20:00 Pulse Ox 96 03/12/18 20:00 Intake & Output 03/12/18 03/12/18 03/13/18 06:59 18:59 06:59 Intake Total 120 650 Balance 120 650 Intake: Oral 120 650 Other: # Voids 1 2 # Bowel Movements 1 Active Medications: Current Medications Acetaminophen (Tylenol) 650 mg PO Q4HR PRN PRN Reason: Mild Pain / Temp above 100 Stop: 05/06/18 00:45 Al Hydrox/Mg Hydrox/Simethicone (Maalox) 30 ml PO Q4HR PRN PRN Reason: GI DISTRESS Stop: 05/06/18 00:45 Aripiprazole (Abilify) 5 mg PO DAILY [facility]; Protocol Stop: 05/09/18 08:59 Last Admin: 03/12/18 08:19 Dose: 5 mg Cholecalciferol (Vitamin D3) 3,000 iu PO DAILY [facility] Stop: 05/06/18 08:59 Last Admin: 03/12/18 08:18 Dose: 3,000 iu Docusate Sodium (Colace) 100 mg PO BID [facility] Stop: 05/06/18 08:59 Last Admin: 03/12/18 16:10 Dose: Not Given Donepezil HCl (Aricept) 10 mg PO HS [facility] Stop: 05/06/18 20:59 Last Admin: 03/12/18 21:22 Dose: 10 mg Escitalopram Oxalate 10 mg/ (Escitalopram Oxalate 5 mg) 15 mg PO DAILY [facility] Stop: 05/06/18 08:59 Last Admin: 03/12/18 08:19 Dose: 15 mg Lorazepam (Ativan) 0.5 mg PO Q4HR PRN; Protocol PRN Reason: Anxiety/Agitation Stop: 04/06/18 00:45 Magnesium Hydroxide (Milk Of Magnesia) 30 ml PO DAILY PRN PRN Reason: Constipation Stop: 05/06/18 16:54 Memantine (Namenda) 10 mg PO BID [facility] Stop: 05/06/18 08:59 Last Admin: 03/12/18 16:10 Dose: 10 mg Multivitamins/Vitamin C (Theragran) 1 tab PO DAILY [facility] Stop: 05/06/18 08:59 Last Admin: 03/12/18 08:19 Dose: 1 tab Thiamine HCl (Vitamin B1) 100 mg PO DAILY [facility] Stop: 05/06/18 08:59 Last Admin: 03/12/18 08:19 Dose: 100 mg Timolol Maleate (Timoptic 0.5% Ophth Soln) 1 drop EACH EYE BID [facility] Stop: 05/06/18 08:59 Last Admin: 03/12/18 16:10 Dose: 1 drop General: demented HEENT: NC/AT, PERRLA, EOMI, anicteric sclerae, throat clear Neck: Supple, No JVD, No thyromegaly, +2 carotid pulse wo bruit, No LAD Lungs: CTAB Cardiovascular: Normal S1, Normal S2, without murmur Abdomen: soft, non-tender, non-distended Extremities: clear Neurological: no change Internal Medicine Assmt/Plan - Assessment Assessment: 1.DJD. 2.DEMENTIA. 3.PSYCHOSIS. - Plan Plan: CONTINUE ON CURRENT MEDICATION AND DIET. Nutritional Asmnt/Malnutr-PDOC - Dietary Evaluation Malnutrition Findings (Please click <Entered> for more info): Nutritional Asmnt/Malnutrition Start: 03/11/18 14: 48 Text: Status: Complete Freq: Protocol: Document 03/11/18 14:48 ARTUROG (Rec: 03/11/18 14:55 [email or web address] Nutritional Asmnt/Malnutrition Patient General Information Nutritional Screening Moderate Risk Diagnosis psychosis agitation Pertinent Medical Hx/Surgical Hx dementia, DJD Subjective Information Pt not available in room at time of visit. Per EMR, PO intake 100% of meals. Current Diet Order/ Nutrition Support regular Pertinent Medications vit D3, colace, theragran, vit B1 Pertinent Labs 03/06 BUN 28 Nutritional Hx/Data Height 1.68 m Height (Calculated Centimeters) 167.6 Current Weight (lbs) 81.647 kg Weight (Calculated Kilograms) 81.6 Weight (Calculated Grams) 78192.6 [place] Body Weight 142 Body Mass Index (BMI) 29.0 Weight Status Overweight GI Symptoms GI Symptoms None Last BM 03/10 Difficult in: None Skin Integrity/Comment: intact Current %PO Good (75-100%) Estimated Nutritional Goals BEE in Kcals: Using Current wt Calories/Kcals/Kg 23-27 Kcals Calculated 0927-7165 Protein: Using Current wt Protein g/k.8 Protein Calculated 66 Fluid: ml 1886-2214ml (1ml/kcal) Nutritional Problem No current Nutrition Prob Problem N/A Malnutrition Alert Is there a minimum of two criteria No selected? Query Text:Check all the applicable criteria. A minimum of two criteria are recommended for diagnosis of either severe or non-severe malnutrition. Malnutrition Related to Morbid Obesity Malnutrition related to morbid obesity No Intervention/Recommendation Comments 1. Continue with regular diet as ordered. 2. Monitor PO intake, wt, labs and skin integrity 3. F/U as low risk in 7 days, 03/18 Expected Outcomes/Goals Expected Outcomes/Goals 1. PO intake to meet at least 75% of nutritional needs. 2. Wt stability, skin to remain intact, labs to approach WNL.
[2018-03-13] MEDS: Multivitamin Tab PO SCH (09:05)
[2018-03-13] MEDS: Escitalopram Oxalate 10 MG, Escitalopram Oxalate 5 MG PO SCH (09:05)
--- NOTE | 2018-03-13 19:07 | Internal Medicine Prog Note ---
Internal Medicine Subjective - Subjective Service Date: 03/13/18 Patient seen and examined:: with staff Patient is:: in bed Per staff patient has:: no adverse event Internal Medicine Objective - Results Result Diagrams: 03/06/18 20:25 03/06/18 20:25 Recent Labs: Laboratory Last Values WBC 7.7 Th/cmm (4.8-10.8) 03/06/18 20:25 RBC 5.25 Mil/cmm (3.80-5.80) 03/06/18 20:25 Hgb 15.6 gm/dL (12-16) 03/06/18 20:25 Hct 46.3 % (41.0-60) 03/06/18 20:25 MCV 88.1 fl (80-99) 03/06/18 20:25 MCH 29.6 pg (27.0-31.0) 03/06/18 20:25 MCHC Differential 33.6 pg (28.0-36.0) 03/06/18 20:25 RDW 13.0 % (11.5-20.0) 03/06/18 20:25 Plt Count 201 Th/cmm (150-400) 03/06/18 20:25 MPV 8.6 fl 03/06/18 20:25 Neutrophils % 70.5 % (40.0-80.0) 03/06/18 20:25 Lymphocytes % 21.6 % (20.0-50.0) 03/06/18 20:25 Monocytes % 5.2 % (2.0-10.0) 03/06/18 20:25 Eosinophils % 2.7 % (0.0-5.0) 03/06/18 20:25 Basophils % 0.0 % (0.0-2.0) 03/06/18 20:25 Sodium 139 mEq/L (136-145) 03/06/18 20:25 Potassium 3.8 mEq/L (3.5-5.1) 03/06/18 20:25 Chloride 106 mEq/L (98-107) 03/06/18 20:25 Carbon Dioxide 27.4 mEq/L (21.0-31.0) 03/06/18 20:25 Anion Gap 9.4 (7.0-16.0) 03/06/18 20:25 BUN 28 mg/dL (7-25) H 03/06/18 20:25 Creatinine 1.0 mg/dL (0.7-1.3) 03/06/18 20:25 Est GFR ( Amer) > 60.0 ml/min (>90) 03/06/18 20:25 Est GFR (Non-Af Amer) > 60.0 ml/min 03/06/18 20:25 BUN/Creatinine Ratio 28.0 03/06/18 20:25 Glucose 100 mg/dL (70-105) 03/06/18 20:25 Calcium 9.9 mg/dL (8.6-10.3) 03/06/18 20:25 Total Bilirubin 0.9 mg/dL (0.3-1.0) 03/06/18 20:25 AST 12 U/L (13-39) L 03/06/18 20:25 ALT 9 U/L (7-52) 03/06/18 20:25 Alkaline Phosphatase 67 U/L (34-104) 03/06/18 20:25 Total Protein 7.4 gm/dL (6.0-8.3) 03/06/18 20:25 Albumin 4.6 gm/dL (4.2-5.5) 03/06/18 20:25 Globulin 2.8 gm/dL 03/06/18 20:25 Albumin/Globulin Ratio 1.6 (1.0-1.8) 03/06/18 20:25 - Physical Exam Vitals and I&O: Vital Signs Temp 98.0 F 03/13/18 14:57 Pulse 58 03/13/18 14:57 Resp 20 03/13/18 14:57 BP 111/69 03/13/18 14:57 Pulse Ox 96 03/13/18 14:57 Intake & Output 03/13/18 03/13/18 03/14/18 06:59 18:59 06:59 Intake Total 100 1000 Balance 100 1000 Intake: Oral 100 1000 Other: # Voids 2 3 # Bowel Movements 0 1 Active Medications: Current Medications Acetaminophen (Tylenol) 650 mg PO Q4HR PRN PRN Reason: Mild Pain / Temp above 100 Stop: 05/06/18 00:45 Al Hydrox/Mg Hydrox/Simethicone (Maalox) 30 ml PO Q4HR PRN PRN Reason: GI DISTRESS Stop: 05/06/18 00:45 Aripiprazole (Abilify) 5 mg PO DAILY [facility]; Protocol Stop: 05/09/18 08:59 Last Admin: 03/13/18 09:05 Dose: 5 mg Cholecalciferol (Vitamin D3) 3,000 iu PO DAILY [facility] Stop: 05/06/18 08:59 Last Admin: 03/13/18 09:05 Dose: 3,000 iu Docusate Sodium (Colace) 100 mg PO BID [facility] Stop: 05/06/18 08:59 Last Admin: 03/13/18 16:19 Dose: Not Given Donepezil HCl (Aricept) 10 mg PO HS [facility] Stop: 05/06/18 20:59 Last Admin: 03/12/18 21:22 Dose: 10 mg Escitalopram Oxalate (Lexapro) 20 mg PO DAILY [facility] Stop: 05/13/18 08:59 Lorazepam (Ativan) 0.5 mg PO Q4HR PRN; Protocol PRN Reason: Anxiety/Agitation Stop: 04/06/18 00:45 Magnesium Hydroxide (Milk Of Magnesia) 30 ml PO DAILY PRN PRN Reason: Constipation Stop: 05/06/18 16:54 Memantine (Namenda) 10 mg PO BID [facility] Stop: 05/06/18 08:59 Last Admin: 03/13/18 16:19 Dose: Not Given Multivitamins/Vitamin C (Theragran) 1 tab PO DAILY [facility] Stop: 05/06/18 08:59 Last Admin: 03/13/18 09:05 Dose: 1 tab Thiamine HCl (Vitamin B1) 100 mg PO DAILY [facility] Stop: 05/06/18 08:59 Last Admin: 03/13/18 09:05 Dose: 100 mg Timolol Maleate (Timoptic 0.5% Ophth Soln) 1 drop EACH EYE BID [facility] Stop: 05/06/18 08:59 Last Admin: 03/13/18 16:19 Dose: Not Given General: demented HEENT: NC/AT, PERRLA, EOMI, anicteric sclerae, throat clear Neck: Supple, No JVD, No thyromegaly, +2 carotid pulse wo bruit, No LAD Lungs: CTAB Cardiovascular: Normal S1, Normal S2, without murmur Abdomen: soft, non-tender, non-distended Extremities: clear Neurological: no change Internal Medicine Assmt/Plan - Assessment Assessment: 1.DJD. 2.DEMENTIA. 3.PSYCHOSIS. - Plan Plan: CONTINUE ON CURRENT MEDICATION AND DIET. Nutritional Asmnt/Malnutr-PDOC - Dietary Evaluation Malnutrition Findings (Please click <Entered> for more info): Nutritional Asmnt/Malnutrition Start: 03/11/18 14: 48 Text: Status: Complete Freq: Protocol: Document 03/11/18 14:48 LCARTUROG (Rec: 03/11/18 14:55 LCANA ROSA GEOVANI-[email or web address]) Nutritional Asmnt/Malnutrition Patient General Information Nutritional Screening Moderate Risk Diagnosis psychosis agitation Pertinent Medical Hx/Surgical Hx dementia, DJD Subjective Information Pt not available in room at time of visit. Per EMR, PO intake 100% of meals. Current Diet Order/ Nutrition Support regular Pertinent Medications vit D3, colace, theragran, vit B1 Pertinent Labs 03/06 BUN 28 Nutritional Hx/Data Height 1.68 m Height (Calculated Centimeters) 167.6 Current Weight (lbs) 81.647 kg Weight (Calculated Kilograms) 81.6 Weight (Calculated Grams) 44996.6 [place] Body Weight 142 Body Mass Index (BMI) 29.0 Weight Status Overweight GI Symptoms GI Symptoms None Last BM 03/10 Difficult in: None Skin Integrity/Comment: intact Current %PO Good (75-100%) Estimated Nutritional Goals BEE in Kcals: Using Current wt Calories/Kcals/Kg 23-27 Kcals Calculated 4928-6444 Protein: Using Current wt Protein g/k.8 Protein Calculated 66 Fluid: ml 1886-2214ml (1ml/kcal) Nutritional Problem No current Nutrition Prob Problem N/A Malnutrition Alert Is there a minimum of two criteria No selected? Query Text:Check all the applicable criteria. A minimum of two criteria are recommended for diagnosis of either severe or non-severe malnutrition. Malnutrition Related to Morbid Obesity Malnutrition related to morbid obesity No Intervention/Recommendation Comments 1. Continue with regular diet as ordered. 2. Monitor PO intake, wt, labs and skin integrity 3. F/U as low risk in 7 days, 03/18 Expected Outcomes/Goals Expected Outcomes/Goals 1. PO intake to meet at least 75% of nutritional needs. 2. Wt stability, skin to remain intact, labs to approach WNL.
--- NOTE | 2018-03-13 22:22 | Progress Notes ---
DATE: 03/13/2018 SUBJECTIVE: Case was discussed with staff of the patient, reviewed records. The patient continues to be confused, demented, isolating himself, was staying in his room, unable to participate in a meaningful conversation for long, internally preoccupied. He continues to appear to be depressed. He is very guarded about any intent to harm himself or anyone; however, he is not acting anyway dangerous while he is here, responding well to redirection, and no side effects of the medication, no sedation, no nausea, and no extrapyramidal symptoms. We will continue to work with the patient in group therapy, milieu therapy, and adjust the medications as needed. JOB# [id number]
[2018-03-14] MEDS: Multivitamin Tab PO SCH (08:30)
--- NOTE | 2018-03-14 18:29 | Progress Notes ---
DATE: 03/14/2018 PSYCHIATRIC PROGRESS NOTE COVERING FOR: Dr. Wiseman. SUBJECTIVE: The chart reviewed and the patient interviewed. Also discussed the patient's condition with the staff and reviewed records and labs. The patient remains guarded and is still withdrawn. The patient also is still severely depressed, but he denies any thoughts of suicide. The patient wants to be left alone and isolates himself. Otherwise, the patient is compliant with taking his medications with no side effects of medications. ASSESSMENT: The patient is still depressed and is still anxious. TREATMENT PLAN: Continue monitoring his behavior and his condition closely. Also, continue working on his ineffective coping and p.r.n. adjusting psychotropic medications. [facility]# [id number]
--- NOTE | 2018-03-14 20:30 | Internal Medicine Prog Note ---
Internal Medicine Subjective - Subjective Service Date: 03/14/18 Patient seen and examined:: with staff Patient is:: in bed Per staff patient has:: no adverse event Internal Medicine Objective - Results Result Diagrams: 03/06/18 20:25 03/06/18 20:25 Recent Labs: Laboratory Last Values WBC 7.7 Th/cmm (4.8-10.8) 03/06/18 20:25 RBC 5.25 Mil/cmm (3.80-5.80) 03/06/18 20:25 Hgb 15.6 gm/dL (12-16) 03/06/18 20:25 Hct 46.3 % (41.0-60) 03/06/18 20:25 MCV 88.1 fl (80-99) 03/06/18 20:25 MCH 29.6 pg (27.0-31.0) 03/06/18 20:25 MCHC Differential 33.6 pg (28.0-36.0) 03/06/18 20:25 RDW 13.0 % (11.5-20.0) 03/06/18 20:25 Plt Count 201 Th/cmm (150-400) 03/06/18 20:25 MPV 8.6 fl 03/06/18 20:25 Neutrophils % 70.5 % (40.0-80.0) 03/06/18 20:25 Lymphocytes % 21.6 % (20.0-50.0) 03/06/18 20:25 Monocytes % 5.2 % (2.0-10.0) 03/06/18 20:25 Eosinophils % 2.7 % (0.0-5.0) 03/06/18 20:25 Basophils % 0.0 % (0.0-2.0) 03/06/18 20:25 Sodium 139 mEq/L (136-145) 03/06/18 20:25 Potassium 3.8 mEq/L (3.5-5.1) 03/06/18 20:25 Chloride 106 mEq/L (98-107) 03/06/18 20:25 Carbon Dioxide 27.4 mEq/L (21.0-31.0) 03/06/18 20:25 Anion Gap 9.4 (7.0-16.0) 03/06/18 20:25 BUN 28 mg/dL (7-25) H 03/06/18 20:25 Creatinine 1.0 mg/dL (0.7-1.3) 03/06/18 20:25 Est GFR ( Amer) > 60.0 ml/min (>90) 03/06/18 20:25 Est GFR (Non-Af Amer) > 60.0 ml/min 03/06/18 20:25 BUN/Creatinine Ratio 28.0 03/06/18 20:25 Glucose 100 mg/dL (70-105) 03/06/18 20:25 Calcium 9.9 mg/dL (8.6-10.3) 03/06/18 20:25 Total Bilirubin 0.9 mg/dL (0.3-1.0) 03/06/18 20:25 AST 12 U/L (13-39) L 03/06/18 20:25 ALT 9 U/L (7-52) 03/06/18 20:25 Alkaline Phosphatase 67 U/L (34-104) 03/06/18 20:25 Total Protein 7.4 gm/dL (6.0-8.3) 03/06/18 20:25 Albumin 4.6 gm/dL (4.2-5.5) 03/06/18 20:25 Globulin 2.8 gm/dL 03/06/18 20:25 Albumin/Globulin Ratio 1.6 (1.0-1.8) 03/06/18 20:25 - Physical Exam Vitals and I&O: Vital Signs Temp 98.2 F 03/14/18 15:23 Pulse 70 03/14/18 15:23 Resp 18 03/14/18 15:23 BP 122/72 03/14/18 15:23 Pulse Ox 96 03/14/18 15:23 Intake & Output 03/14/18 03/14/18 03/15/18 06:59 18:59 06:59 Intake Total 1200 Balance 1200 Intake: Oral 1200 Other: # Voids 3 # Bowel Movements 1 Stool Characteristics Soft Formed Brown Active Medications: Current Medications Acetaminophen (Tylenol) 650 mg PO Q4HR PRN PRN Reason: Mild Pain / Temp above 100 Stop: 05/06/18 00:45 Al Hydrox/Mg Hydrox/Simethicone (Maalox) 30 ml PO Q4HR PRN PRN Reason: GI DISTRESS Stop: 05/06/18 00:45 Aripiprazole (Abilify) 5 mg PO DAILY [facility]; Protocol Stop: 05/09/18 08:59 Last Admin: 03/14/18 08:30 Dose: 5 mg Cholecalciferol (Vitamin D3) 3,000 iu PO DAILY [facility] Stop: 05/06/18 08:59 Last Admin: 03/14/18 08:30 Dose: 3,000 iu Docusate Sodium (Colace) 100 mg PO BID [facility] Stop: 05/06/18 08:59 Last Admin: 03/14/18 16:23 Dose: 100 mg Donepezil HCl (Aricept) 10 mg PO HS [facility] Stop: 05/06/18 20:59 Last Admin: 03/13/18 20:57 Dose: 10 mg Escitalopram Oxalate (Lexapro) 20 mg PO DAILY [facility] Stop: 05/13/18 08:59 Last Admin: 03/14/18 08:31 Dose: 20 mg Lorazepam (Ativan) 0.5 mg PO Q4HR PRN; Protocol PRN Reason: Anxiety/Agitation Stop: 04/06/18 00:45 Magnesium Hydroxide (Milk Of Magnesia) 30 ml PO DAILY PRN PRN Reason: Constipation Stop: 05/06/18 16:54 Memantine (Namenda) 10 mg PO BID [facility] Stop: 05/06/18 08:59 Last Admin: 03/14/18 16:23 Dose: 10 mg Multivitamins/Vitamin C (Theragran) 1 tab PO DAILY [facility] Stop: 05/06/18 08:59 Last Admin: 03/14/18 08:30 Dose: 1 tab Thiamine HCl (Vitamin B1) 100 mg PO DAILY [facility] Stop: 05/06/18 08:59 Last Admin: 03/14/18 08:30 Dose: 100 mg Timolol Maleate (Timoptic 0.5% Ophth Soln) 1 drop EACH EYE BID [facility] Stop: 05/06/18 08:59 Last Admin: 03/14/18 16:24 Dose: 1 drop General: demented HEENT: NC/AT, PERRLA, EOMI, anicteric sclerae, throat clear Neck: Supple, No JVD, No thyromegaly, +2 carotid pulse wo bruit, No LAD Lungs: CTAB Cardiovascular: Normal S1, Normal S2, without murmur Abdomen: soft, non-tender, non-distended Extremities: clear Neurological: no change Internal Medicine Assmt/Plan - Assessment Assessment: 1.DJD. 2.DEMENTIA. 3.PSYCHOSIS. - Plan Plan: CONTINUE ON CURRENT MEDICATION AND DIET. Nutritional Asmnt/Malnutr-PDOC - Dietary Evaluation Malnutrition Findings (Please click <Entered> for more info): Nutritional Asmnt/Malnutrition Start: 03/11/18 14: 48 Text: Status: Complete Freq: Protocol: Document 03/11/18 14:48 LCHENG (Rec: 03/11/18 14:55 HENG [email or web address]) Nutritional Asmnt/Malnutrition Patient General Information Nutritional Screening Moderate Risk Diagnosis psychosis agitation Pertinent Medical Hx/Surgical Hx dementia, DJD Subjective Information Pt not available in room at time of visit. Per EMR, PO intake 100% of meals. Current Diet Order/ Nutrition Support regular Pertinent Medications vit D3, colace, theragran, vit B1 Pertinent Labs 03/06 BUN 28 Nutritional Hx/Data Height 1.68 m Height (Calculated Centimeters) 167.6 Current Weight (lbs) 81.647 kg Weight (Calculated Kilograms) 81.6 Weight (Calculated Grams) 10898.6 [place] Body Weight 142 Body Mass Index (BMI) 29.0 Weight Status Overweight GI Symptoms GI Symptoms None Last BM 03/10 Difficult in: None Skin Integrity/Comment: intact Current %PO Good (75-100%) Estimated Nutritional Goals BEE in Kcals: Using Current wt Calories/Kcals/Kg 23-27 Kcals Calculated 4213-9867 Protein: Using Current wt Protein g/k.8 Protein Calculated 66 Fluid: ml 1886-2214ml (1ml/kcal) Nutritional Problem No current Nutrition Prob Problem N/A Malnutrition Alert Is there a minimum of two criteria No selected? Query Text:Check all the applicable criteria. A minimum of two criteria are recommended for diagnosis of either severe or non-severe malnutrition. Malnutrition Related to Morbid Obesity Malnutrition related to morbid obesity No Intervention/Recommendation Comments 1. Continue with regular diet as ordered. 2. Monitor PO intake, wt, labs and skin integrity 3. F/U as low risk in 7 days, 03/18 Expected Outcomes/Goals Expected Outcomes/Goals 1. PO intake to meet at least 75% of nutritional needs. 2. Wt stability, skin to remain intact, labs to approach WNL.
[2018-03-15] MEDS: Multivitamin Tab PO SCH (08:55)
--- NOTE | 2018-03-15 17:08 | Internal Medicine Prog Note ---
Internal Medicine Subjective - Subjective Service Date: 03/15/18 Patient seen and examined:: without staff Patient is:: in bed Per staff patient has:: no adverse event Internal Medicine Objective - Results Result Diagrams: 03/06/18 20:25 03/06/18 20:25 Recent Labs: Laboratory Last Values WBC 7.7 Th/cmm (4.8-10.8) 03/06/18 20:25 RBC 5.25 Mil/cmm (3.80-5.80) 03/06/18 20:25 Hgb 15.6 gm/dL (12-16) 03/06/18 20:25 Hct 46.3 % (41.0-60) 03/06/18 20:25 MCV 88.1 fl (80-99) 03/06/18 20:25 MCH 29.6 pg (27.0-31.0) 03/06/18 20:25 MCHC Differential 33.6 pg (28.0-36.0) 03/06/18 20:25 RDW 13.0 % (11.5-20.0) 03/06/18 20:25 Plt Count 201 Th/cmm (150-400) 03/06/18 20:25 MPV 8.6 fl 03/06/18 20:25 Neutrophils % 70.5 % (40.0-80.0) 03/06/18 20:25 Lymphocytes % 21.6 % (20.0-50.0) 03/06/18 20:25 Monocytes % 5.2 % (2.0-10.0) 03/06/18 20:25 Eosinophils % 2.7 % (0.0-5.0) 03/06/18 20:25 Basophils % 0.0 % (0.0-2.0) 03/06/18 20:25 Sodium 139 mEq/L (136-145) 03/06/18 20:25 Potassium 3.8 mEq/L (3.5-5.1) 03/06/18 20:25 Chloride 106 mEq/L (98-107) 03/06/18 20:25 Carbon Dioxide 27.4 mEq/L (21.0-31.0) 03/06/18 20:25 Anion Gap 9.4 (7.0-16.0) 03/06/18 20:25 BUN 28 mg/dL (7-25) H 03/06/18 20:25 Creatinine 1.0 mg/dL (0.7-1.3) 03/06/18 20:25 Est GFR ( Amer) > 60.0 ml/min (>90) 03/06/18 20:25 Est GFR (Non-Af Amer) > 60.0 ml/min 03/06/18 20:25 BUN/Creatinine Ratio 28.0 03/06/18 20:25 Glucose 100 mg/dL (70-105) 03/06/18 20:25 Calcium 9.9 mg/dL (8.6-10.3) 03/06/18 20:25 Total Bilirubin 0.9 mg/dL (0.3-1.0) 03/06/18 20:25 AST 12 U/L (13-39) L 03/06/18 20:25 ALT 9 U/L (7-52) 03/06/18 20:25 Alkaline Phosphatase 67 U/L (34-104) 03/06/18 20:25 Total Protein 7.4 gm/dL (6.0-8.3) 03/06/18 20:25 Albumin 4.6 gm/dL (4.2-5.5) 03/06/18 20:25 Globulin 2.8 gm/dL 03/06/18 20:25 Albumin/Globulin Ratio 1.6 (1.0-1.8) 03/06/18 20:25 - Physical Exam Vitals and I&O: Vital Signs Temp 97.8 F 03/15/18 16:06 Pulse 65 03/15/18 16:06 Resp 18 03/15/18 16:06 BP 119/74 03/15/18 16:06 Pulse Ox 97 03/15/18 16:06 Intake & Output 03/14/18 03/15/18 03/15/18 18:59 06:59 18:59 Intake Total 1200 Balance 1200 Intake: Oral 1200 Other: # Voids 3 # Bowel Movements 1 Stool Characteristics Formed Brown Active Medications: Current Medications Acetaminophen (Tylenol) 650 mg PO Q4HR PRN PRN Reason: Mild Pain / Temp above 100 Stop: 05/06/18 00:45 Al Hydrox/Mg Hydrox/Simethicone (Maalox) 30 ml PO Q4HR PRN PRN Reason: GI DISTRESS Stop: 05/06/18 00:45 Aripiprazole (Abilify) 5 mg PO DAILY [facility]; Protocol Stop: 05/09/18 08:59 Last Admin: 03/15/18 08:55 Dose: 5 mg Cholecalciferol (Vitamin D3) 3,000 iu PO DAILY [facility] Stop: 05/06/18 08:59 Last Admin: 03/15/18 08:56 Dose: 3,000 iu Docusate Sodium (Colace) 100 mg PO BID [facility] Stop: 05/06/18 08:59 Last Admin: 03/15/18 16:18 Dose: 100 mg Donepezil HCl (Aricept) 10 mg PO HS [facility] Stop: 05/06/18 20:59 Last Admin: 03/14/18 21:22 Dose: 10 mg Escitalopram Oxalate (Lexapro) 20 mg PO DAILY [facility] Stop: 05/13/18 08:59 Last Admin: 03/15/18 08:56 Dose: 20 mg Lorazepam (Ativan) 0.5 mg PO Q4HR PRN; Protocol PRN Reason: Anxiety/Agitation Stop: 04/06/18 00:45 Magnesium Hydroxide (Milk Of Magnesia) 30 ml PO DAILY PRN PRN Reason: Constipation Stop: 05/06/18 16:54 Memantine (Namenda) 10 mg PO BID [facility] Stop: 05/06/18 08:59 Last Admin: 03/15/18 16:18 Dose: 10 mg Multivitamins/Vitamin C (Theragran) 1 tab PO DAILY [facility] Stop: 05/06/18 08:59 Last Admin: 03/15/18 08:55 Dose: 1 tab Thiamine HCl (Vitamin B1) 100 mg PO DAILY [facility] Stop: 05/06/18 08:59 Last Admin: 03/15/18 08:56 Dose: 100 mg Timolol Maleate (Timoptic 0.5% Ophth Soln) 1 drop EACH EYE BID [facility] Stop: 05/06/18 08:59 Last Admin: 03/15/18 16:18 Dose: 1 drop General: demented HEENT: NC/AT, PERRLA, EOMI, anicteric sclerae, throat clear Neck: Supple, No JVD, No thyromegaly, +2 carotid pulse wo bruit, No LAD Lungs: CTAB Cardiovascular: Normal S1, Normal S2, without murmur Abdomen: soft, non-tender, non-distended Extremities: clear Neurological: no change Internal Medicine Assmt/Plan - Assessment Assessment: 1.DJD. 2.DEMENTIA. 3.PSYCHOSIS. - Plan Plan: CONTINUE ON CURRENT MEDICATION AND DIET. Nutritional Asmnt/Malnutr-PDOC - Dietary Evaluation Malnutrition Findings (Please click <Entered> for more info): Nutritional Asmnt/Malnutrition Start: 03/11/18 14: 48 Text: Status: Complete Freq: Protocol: Document 03/11/18 14:48 LCARTUROG (Rec: 03/11/18 14:55 HEN [email or web address]) Nutritional Asmnt/Malnutrition Patient General Information Nutritional Screening Moderate Risk Diagnosis psychosis agitation Pertinent Medical Hx/Surgical Hx dementia, DJD Subjective Information Pt not available in room at time of visit. Per EMR, PO intake 100% of meals. Current Diet Order/ Nutrition Support regular Pertinent Medications vit D3, colace, theragran, vit B1 Pertinent Labs 03/06 BUN 28 Nutritional Hx/Data Height 1.68 m Height (Calculated Centimeters) 167.6 Current Weight (lbs) 81.647 kg Weight (Calculated Kilograms) 81.6 Weight (Calculated Grams) 89547.6 [place] Body Weight 142 Body Mass Index (BMI) 29.0 Weight Status Overweight GI Symptoms GI Symptoms None Last BM 03/10 Difficult in: None Skin Integrity/Comment: intact Current %PO Good (75-100%) Estimated Nutritional Goals BEE in Kcals: Using Current wt Calories/Kcals/Kg 23-27 Kcals Calculated 2614-8139 Protein: Using Current wt Protein g/k.8 Protein Calculated 66 Fluid: ml 1886-2214ml (1ml/kcal) Nutritional Problem No current Nutrition Prob Problem N/A Malnutrition Alert Is there a minimum of two criteria No selected? Query Text:Check all the applicable criteria. A minimum of two criteria are recommended for diagnosis of either severe or non-severe malnutrition. Malnutrition Related to Morbid Obesity Malnutrition related to morbid obesity No Intervention/Recommendation Comments 1. Continue with regular diet as ordered. 2. Monitor PO intake, wt, labs and skin integrity 3. F/U as low risk in 7 days, 03/18 Expected Outcomes/Goals Expected Outcomes/Goals 1. PO intake to meet at least 75% of nutritional needs. 2. Wt stability, skin to remain intact, labs to approach WNL.
--- NOTE | 2018-03-15 19:21 | Progress Notes ---
DATE: 03/15/2018 PSYCHIATRIC PROGRESS NOTE SUBJECTIVE: Chart reviewed and the patient interviewed. Also discussed the patient's condition with the staff and reviewed records and labs. The patient is still isolative and withdrawn. The patient also is guarded and she is still in a depressed mood. The patient also is still interacting minimally with others. Otherwise, the patient is compliant with taking her medication with no side effect of medications. ASSESSMENT: The patient is still depressed and needs close monitoring. TREATMENT PLAN: Continue monitoring her behavior and her condition closely. Also, continue working on ineffective coping and followup. JOB# [id number]
[2018-03-16] MEDS: Multivitamin Tab PO SCH (08:51)
--- NOTE | 2018-03-16 20:55 | Internal Medicine Prog Note ---
Internal Medicine Subjective - Subjective Service Date: 03/16/18 Patient seen and examined:: with staff Patient is:: in bed Per staff patient has:: no adverse event Internal Medicine Objective - Results Result Diagrams: 03/06/18 20:25 03/06/18 20:25 Recent Labs: Laboratory Last Values WBC 7.7 Th/cmm (4.8-10.8) 03/06/18 20:25 RBC 5.25 Mil/cmm (3.80-5.80) 03/06/18 20:25 Hgb 15.6 gm/dL (12-16) 03/06/18 20:25 Hct 46.3 % (41.0-60) 03/06/18 20:25 MCV 88.1 fl (80-99) 03/06/18 20:25 MCH 29.6 pg (27.0-31.0) 03/06/18 20:25 MCHC Differential 33.6 pg (28.0-36.0) 03/06/18 20:25 RDW 13.0 % (11.5-20.0) 03/06/18 20:25 Plt Count 201 Th/cmm (150-400) 03/06/18 20:25 MPV 8.6 fl 03/06/18 20:25 Neutrophils % 70.5 % (40.0-80.0) 03/06/18 20:25 Lymphocytes % 21.6 % (20.0-50.0) 03/06/18 20:25 Monocytes % 5.2 % (2.0-10.0) 03/06/18 20:25 Eosinophils % 2.7 % (0.0-5.0) 03/06/18 20:25 Basophils % 0.0 % (0.0-2.0) 03/06/18 20:25 Sodium 139 mEq/L (136-145) 03/06/18 20:25 Potassium 3.8 mEq/L (3.5-5.1) 03/06/18 20:25 Chloride 106 mEq/L (98-107) 03/06/18 20:25 Carbon Dioxide 27.4 mEq/L (21.0-31.0) 03/06/18 20:25 Anion Gap 9.4 (7.0-16.0) 03/06/18 20:25 BUN 28 mg/dL (7-25) H 03/06/18 20:25 Creatinine 1.0 mg/dL (0.7-1.3) 03/06/18 20:25 Est GFR ( Amer) > 60.0 ml/min (>90) 03/06/18 20:25 Est GFR (Non-Af Amer) > 60.0 ml/min 03/06/18 20:25 BUN/Creatinine Ratio 28.0 03/06/18 20:25 Glucose 100 mg/dL (70-105) 03/06/18 20:25 Calcium 9.9 mg/dL (8.6-10.3) 03/06/18 20:25 Total Bilirubin 0.9 mg/dL (0.3-1.0) 03/06/18 20:25 AST 12 U/L (13-39) L 03/06/18 20:25 ALT 9 U/L (7-52) 03/06/18 20:25 Alkaline Phosphatase 67 U/L (34-104) 03/06/18 20:25 Total Protein 7.4 gm/dL (6.0-8.3) 03/06/18 20:25 Albumin 4.6 gm/dL (4.2-5.5) 03/06/18 20:25 Globulin 2.8 gm/dL 03/06/18 20:25 Albumin/Globulin Ratio 1.6 (1.0-1.8) 03/06/18 20:25 - Physical Exam Vitals and I&O: Vital Signs Temp 100 F 03/16/18 19:49 Pulse 79 03/16/18 19:49 Resp 20 03/16/18 19:49 BP 112/77 03/16/18 19:49 Pulse Ox 95 03/16/18 19:49 Intake & Output 03/16/18 03/16/18 03/17/18 06:59 18:59 06:59 Intake Total 180 1200 120 Balance 180 1200 120 Intake: Oral 180 1200 120 Other: # Voids 3 3 3 # Bowel Movements 0 0 0 Active Medications: Current Medications Acetaminophen (Tylenol) 650 mg PO Q4HR PRN PRN Reason: Mild Pain / Temp above 100 Stop: 05/06/18 00:45 Al Hydrox/Mg Hydrox/Simethicone (Maalox) 30 ml PO Q4HR PRN PRN Reason: GI DISTRESS Stop: 05/06/18 00:45 Aripiprazole (Abilify) 5 mg PO DAILY [facility]; Protocol Stop: 05/09/18 08:59 Last Admin: 03/16/18 08:51 Dose: 5 mg Cholecalciferol (Vitamin D3) 3,000 iu PO DAILY [facility] Stop: 05/06/18 08:59 Last Admin: 03/16/18 08:51 Dose: 3,000 iu Docusate Sodium (Colace) 100 mg PO BID [facility] Stop: 05/06/18 08:59 Last Admin: 03/16/18 16:47 Dose: 100 mg Donepezil HCl (Aricept) 10 mg PO HS [facility] Stop: 05/06/18 20:59 Last Admin: 03/15/18 20:57 Dose: 10 mg Escitalopram Oxalate (Lexapro) 20 mg PO DAILY [facility] Stop: 05/13/18 08:59 Last Admin: 03/16/18 08:51 Dose: 20 mg Lorazepam (Ativan) 0.5 mg PO Q4HR PRN; Protocol PRN Reason: Anxiety/Agitation Stop: 04/06/18 00:45 Magnesium Hydroxide (Milk Of Magnesia) 30 ml PO DAILY PRN PRN Reason: Constipation Stop: 05/06/18 16:54 Memantine (Namenda) 10 mg PO BID [facility] Stop: 05/06/18 08:59 Last Admin: 03/16/18 16:48 Dose: 10 mg Multivitamins/Vitamin C (Theragran) 1 tab PO DAILY [facility] Stop: 05/06/18 08:59 Last Admin: 03/16/18 08:51 Dose: 1 tab Thiamine HCl (Vitamin B1) 100 mg PO DAILY [facility] Stop: 05/06/18 08:59 Last Admin: 03/16/18 08:51 Dose: 100 mg Timolol Maleate (Timoptic 0.5% Ophth Soln) 1 drop EACH EYE BID [facility] Stop: 05/06/18 08:59 Last Admin: 03/16/18 17:04 Dose: 1 drop General: demented HEENT: NC/AT, PERRLA, EOMI, anicteric sclerae, throat clear Neck: Supple, No JVD, No thyromegaly, +2 carotid pulse wo bruit, No LAD Lungs: CTAB Cardiovascular: Normal S1, Normal S2, without murmur Abdomen: soft, non-tender, non-distended Extremities: clear Neurological: no change Internal Medicine Assmt/Plan - Assessment Assessment: 1.DJD. 2.DEMENTIA. 3.PSYCHOSIS. - Plan Plan: CONTINUE ON CURRENT MEDICATION AND DIET. Nutritional Asmnt/Malnutr-PDOC - Dietary Evaluation Malnutrition Findings (Please click <Entered> for more info): Nutritional Asmnt/Malnutrition Start: 03/11/18 14: 48 Text: Status: Complete Freq: Protocol: Document 03/11/18 14:48 ARTUROG (Rec: 03/11/18 14:55 ARTURO [email or web address]) Nutritional Asmnt/Malnutrition Patient General Information Nutritional Screening Moderate Risk Diagnosis psychosis agitation Pertinent Medical Hx/Surgical Hx dementia, DJD Subjective Information Pt not available in room at time of visit. Per EMR, PO intake 100% of meals. Current Diet Order/ Nutrition Support regular Pertinent Medications vit D3, colace, theragran, vit B1 Pertinent Labs 03/06 BUN 28 Nutritional Hx/Data Height 1.68 m Height (Calculated Centimeters) 167.6 Current Weight (lbs) 81.647 kg Weight (Calculated Kilograms) 81.6 Weight (Calculated Grams) 32749.6 [place] Body Weight 142 Body Mass Index (BMI) 29.0 Weight Status Overweight GI Symptoms GI Symptoms None Last BM 03/10 Difficult in: None Skin Integrity/Comment: intact Current %PO Good (75-100%) Estimated Nutritional Goals BEE in Kcals: Using Current wt Calories/Kcals/Kg 23-27 Kcals Calculated 0605-8211 Protein: Using Current wt Protein g/k.8 Protein Calculated 66 Fluid: ml 1886-2214ml (1ml/kcal) Nutritional Problem No current Nutrition Prob Problem N/A Malnutrition Alert Is there a minimum of two criteria No selected? Query Text:Check all the applicable criteria. A minimum of two criteria are recommended for diagnosis of either severe or non-severe malnutrition. Malnutrition Related to Morbid Obesity Malnutrition related to morbid obesity No Intervention/Recommendation Comments 1. Continue with regular diet as ordered. 2. Monitor PO intake, wt, labs and skin integrity 3. F/U as low risk in 7 days, 03/18 Expected Outcomes/Goals Expected Outcomes/Goals 1. PO intake to meet at least 75% of nutritional needs. 2. Wt stability, skin to remain intact, labs to approach WNL.
--- NOTE | 2018-03-16 23:16 | Progress Notes ---
DATE: 03/16/2018 Case was discussed with staff of the patient and reviewed records. The patient continues to isolate himself. Continues to have poor insight, somewhat paranoid. Continues to be unable to make safe plan for self-care or participate in meaningful conversation, ____ gets easily agitated if I ask him the wrong question. He tolerated the increase in Lexapro with no side effects, no sedation, no nausea, and no extrapyramidal symptoms. He is confused and was well demented. We will continue to work with the patient in group therapy, milieu therapy, and adjust the medications as needed. JOB# [id number]
[2018-03-17] MEDS: Multivitamin Tab PO SCH (09:01)
--- NOTE | 2018-03-17 22:10 | Internal Medicine Prog Note ---
Internal Medicine Subjective - Subjective Service Date: 03/17/18 Patient seen and examined:: with staff Patient is:: in bed Per staff patient has:: no adverse event Internal Medicine Objective - Results Result Diagrams: 03/06/18 20:25 03/06/18 20:25 Recent Labs: Laboratory Last Values WBC 7.7 Th/cmm (4.8-10.8) 03/06/18 20:25 RBC 5.25 Mil/cmm (3.80-5.80) 03/06/18 20:25 Hgb 15.6 gm/dL (12-16) 03/06/18 20:25 Hct 46.3 % (41.0-60) 03/06/18 20:25 MCV 88.1 fl (80-99) 03/06/18 20:25 MCH 29.6 pg (27.0-31.0) 03/06/18 20:25 MCHC Differential 33.6 pg (28.0-36.0) 03/06/18 20:25 RDW 13.0 % (11.5-20.0) 03/06/18 20:25 Plt Count 201 Th/cmm (150-400) 03/06/18 20:25 MPV 8.6 fl 03/06/18 20:25 Neutrophils % 70.5 % (40.0-80.0) 03/06/18 20:25 Lymphocytes % 21.6 % (20.0-50.0) 03/06/18 20:25 Monocytes % 5.2 % (2.0-10.0) 03/06/18 20:25 Eosinophils % 2.7 % (0.0-5.0) 03/06/18 20:25 Basophils % 0.0 % (0.0-2.0) 03/06/18 20:25 Sodium 139 mEq/L (136-145) 03/06/18 20:25 Potassium 3.8 mEq/L (3.5-5.1) 03/06/18 20:25 Chloride 106 mEq/L (98-107) 03/06/18 20:25 Carbon Dioxide 27.4 mEq/L (21.0-31.0) 03/06/18 20:25 Anion Gap 9.4 (7.0-16.0) 03/06/18 20:25 BUN 28 mg/dL (7-25) H 03/06/18 20:25 Creatinine 1.0 mg/dL (0.7-1.3) 03/06/18 20:25 Est GFR ( Amer) > 60.0 ml/min (>90) 03/06/18 20:25 Est GFR (Non-Af Amer) > 60.0 ml/min 03/06/18 20:25 BUN/Creatinine Ratio 28.0 03/06/18 20:25 Glucose 100 mg/dL (70-105) 03/06/18 20:25 Calcium 9.9 mg/dL (8.6-10.3) 03/06/18 20:25 Total Bilirubin 0.9 mg/dL (0.3-1.0) 03/06/18 20:25 AST 12 U/L (13-39) L 03/06/18 20:25 ALT 9 U/L (7-52) 03/06/18 20:25 Alkaline Phosphatase 67 U/L (34-104) 03/06/18 20:25 Total Protein 7.4 gm/dL (6.0-8.3) 03/06/18 20:25 Albumin 4.6 gm/dL (4.2-5.5) 03/06/18 20:25 Globulin 2.8 gm/dL 03/06/18 20:25 Albumin/Globulin Ratio 1.6 (1.0-1.8) 03/06/18 20:25 - Physical Exam Vitals and I&O: Vital Signs Temp 98.6 F 03/17/18 20:22 Pulse 61 03/17/18 20:22 Resp 20 03/17/18 20:22 BP 110/66 03/17/18 20:22 Pulse Ox 96 03/17/18 20:22 Intake & Output 03/17/18 03/17/18 03/18/18 06:59 18:59 06:59 Intake Total 120 1200 120 Balance 120 1200 120 Intake: Oral 120 1200 120 Other: # Voids 2 3 3 # Bowel Movements 0 0 1 Active Medications: Current Medications Acetaminophen (Tylenol) 650 mg PO Q4HR PRN PRN Reason: Mild Pain / Temp above 100 Stop: 05/06/18 00:45 Al Hydrox/Mg Hydrox/Simethicone (Maalox) 30 ml PO Q4HR PRN PRN Reason: GI DISTRESS Stop: 05/06/18 00:45 Aripiprazole (Abilify) 10 mg PO DAILY [facility]; Protocol Stop: 05/17/18 08:59 Cholecalciferol (Vitamin D3) 3,000 iu PO DAILY [facility] Stop: 05/06/18 08:59 Last Admin: 03/17/18 09:01 Dose: 3,000 iu Docusate Sodium (Colace) 100 mg PO BID [facility] Stop: 05/06/18 08:59 Last Admin: 03/17/18 17:55 Dose: 100 mg Donepezil HCl (Aricept) 10 mg PO HS [facility] Stop: 05/06/18 20:59 Last Admin: 03/17/18 20:59 Dose: 10 mg Escitalopram Oxalate (Lexapro) 20 mg PO DAILY [facility] Stop: 05/13/18 08:59 Last Admin: 03/17/18 10:38 Dose: Not Given Lorazepam (Ativan) 0.5 mg PO Q4HR PRN; Protocol PRN Reason: Anxiety/Agitation Stop: 04/06/18 00:45 Magnesium Hydroxide (Milk Of Magnesia) 30 ml PO DAILY PRN PRN Reason: Constipation Stop: 05/06/18 16:54 Memantine (Namenda) 10 mg PO BID [facility] Stop: 05/06/18 08:59 Last Admin: 03/17/18 17:55 Dose: 10 mg Multivitamins/Vitamin C (Theragran) 1 tab PO DAILY [facility] Stop: 05/06/18 08:59 Last Admin: 03/17/18 09:01 Dose: 1 tab Thiamine HCl (Vitamin B1) 100 mg PO DAILY [facility] Stop: 05/06/18 08:59 Last Admin: 03/17/18 10:39 Dose: Not Given Timolol Maleate (Timoptic 0.5% Ophth Soln) 1 drop EACH EYE BID [facility] Stop: 05/06/18 08:59 Last Admin: 03/17/18 17:55 Dose: 1 drop General: demented HEENT: NC/AT, PERRLA, EOMI, anicteric sclerae, throat clear Neck: Supple, No JVD, No thyromegaly, +2 carotid pulse wo bruit, No LAD Lungs: CTAB Cardiovascular: Normal S1, Normal S2, without murmur Abdomen: soft, non-tender, non-distended Extremities: clear Neurological: no change Internal Medicine Assmt/Plan - Assessment Assessment: 1.DJD. 2.DEMENTIA. 3.PSYCHOSIS. - Plan Plan: CONTINUE ON CURRENT MEDICATION AND DIET. Nutritional Asmnt/Malnutr-PDOC - Dietary Evaluation Malnutrition Findings (Please click <Entered> for more info): Nutritional Asmnt/Malnutrition Start: 03/11/18 14: 48 Text: Status: Complete Freq: Protocol: Document 03/11/18 14:48 KAYLEIGHG (Rec: 03/11/18 14:55 LCARTUROVenancio [email or web address]) Nutritional Asmnt/Malnutrition Patient General Information Nutritional Screening Moderate Risk Diagnosis psychosis agitation Pertinent Medical Hx/Surgical Hx dementia, DJD Subjective Information Pt not available in room at time of visit. Per EMR, PO intake 100% of meals. Current Diet Order/ Nutrition Support regular Pertinent Medications vit D3, colace, theragran, vit B1 Pertinent Labs 03/06 BUN 28 Nutritional Hx/Data Height 1.68 m Height (Calculated Centimeters) 167.6 Current Weight (lbs) 81.647 kg Weight (Calculated Kilograms) 81.6 Weight (Calculated Grams) 67202.6 [place] Body Weight 142 Body Mass Index (BMI) 29.0 Weight Status Overweight GI Symptoms GI Symptoms None Last BM 03/10 Difficult in: None Skin Integrity/Comment: intact Current %PO Good (75-100%) Estimated Nutritional Goals BEE in Kcals: Using Current wt Calories/Kcals/Kg 23-27 Kcals Calculated 0565-9963 Protein: Using Current wt Protein g/k.8 Protein Calculated 66 Fluid: ml 1886-2214ml (1ml/kcal) Nutritional Problem No current Nutrition Prob Problem N/A Malnutrition Alert Is there a minimum of two criteria No selected? Query Text:Check all the applicable criteria. A minimum of two criteria are recommended for diagnosis of either severe or non-severe malnutrition. Malnutrition Related to Morbid Obesity Malnutrition related to morbid obesity No Intervention/Recommendation Comments 1. Continue with regular diet as ordered. 2. Monitor PO intake, wt, labs and skin integrity 3. F/U as low risk in 7 days, 03/18 Expected Outcomes/Goals Expected Outcomes/Goals 1. PO intake to meet at least 75% of nutritional needs. 2. Wt stability, skin to remain intact, labs to approach WNL.
--- NOTE | 2018-03-18 01:10 | Progress Notes ---
DATE: 03/17/2018 Case was discussed with staff of the patient, reviewed records. The patient is doing well, eating in the groups. His affect is more animated. He is sleeping better, eating better. Continues to have episodes of irritability, agitation. He is compliant with the medication with no side effects, no sedation, no nausea, no extrapyramidal symptoms. The patient is showing progress. PLAN: I will be increasing his Abilify to 10 mg a day and so far no side effects, no sedation, no nausea, no extrapyramidal symptoms. We will continue to work with the patient in group therapy and milieu therapy, adjust medications as needed. JOB# [id number]
[2018-03-18] MEDS: Multivitamin Tab PO SCH (08:25)
--- NOTE | 2018-03-18 08:37 | Progress Notes ---
DATE: 03/18/2018 Case was discussed with staff of the patient, reviewed records. The patient is doing well, sleeping well, eating well. He is still internally preoccupied, stays to himself, demented, confused, unable to make safe plan for self-care. He is compliant with the medication, no side effects, no sedation, no nausea, no extrapyramidal symptoms. He tolerated the increase in the dose of his Abilify and we will continue outpatient group therapy, milieu therapy and adjust medications as needed. JOB# [id number]
--- NOTE | 2018-03-18 21:34 | Internal Medicine Prog Note ---
Internal Medicine Subjective - Subjective Service Date: 03/18/18 Patient is:: in bed Per staff patient has:: no adverse event Internal Medicine Objective - Results Result Diagrams: 03/06/18 20:25 03/06/18 20:25 Recent Labs: Laboratory Last Values WBC 7.7 Th/cmm (4.8-10.8) 03/06/18 20:25 RBC 5.25 Mil/cmm (3.80-5.80) 03/06/18 20:25 Hgb 15.6 gm/dL (12-16) 03/06/18 20:25 Hct 46.3 % (41.0-60) 03/06/18 20:25 MCV 88.1 fl (80-99) 03/06/18 20:25 MCH 29.6 pg (27.0-31.0) 03/06/18 20:25 MCHC Differential 33.6 pg (28.0-36.0) 03/06/18 20:25 RDW 13.0 % (11.5-20.0) 03/06/18 20:25 Plt Count 201 Th/cmm (150-400) 03/06/18 20:25 MPV 8.6 fl 03/06/18 20:25 Neutrophils % 70.5 % (40.0-80.0) 03/06/18 20:25 Lymphocytes % 21.6 % (20.0-50.0) 03/06/18 20:25 Monocytes % 5.2 % (2.0-10.0) 03/06/18 20:25 Eosinophils % 2.7 % (0.0-5.0) 03/06/18 20:25 Basophils % 0.0 % (0.0-2.0) 03/06/18 20:25 Sodium 139 mEq/L (136-145) 03/06/18 20:25 Potassium 3.8 mEq/L (3.5-5.1) 03/06/18 20:25 Chloride 106 mEq/L (98-107) 03/06/18 20:25 Carbon Dioxide 27.4 mEq/L (21.0-31.0) 03/06/18 20:25 Anion Gap 9.4 (7.0-16.0) 03/06/18 20:25 BUN 28 mg/dL (7-25) H 03/06/18 20:25 Creatinine 1.0 mg/dL (0.7-1.3) 03/06/18 20:25 Est GFR ( Amer) > 60.0 ml/min (>90) 03/06/18 20:25 Est GFR (Non-Af Amer) > 60.0 ml/min 03/06/18 20:25 BUN/Creatinine Ratio 28.0 03/06/18 20:25 Glucose 100 mg/dL (70-105) 03/06/18 20:25 Calcium 9.9 mg/dL (8.6-10.3) 03/06/18 20:25 Total Bilirubin 0.9 mg/dL (0.3-1.0) 03/06/18 20:25 AST 12 U/L (13-39) L 03/06/18 20:25 ALT 9 U/L (7-52) 03/06/18 20:25 Alkaline Phosphatase 67 U/L (34-104) 03/06/18 20:25 Total Protein 7.4 gm/dL (6.0-8.3) 03/06/18 20:25 Albumin 4.6 gm/dL (4.2-5.5) 03/06/18 20:25 Globulin 2.8 gm/dL 03/06/18 20:25 Albumin/Globulin Ratio 1.6 (1.0-1.8) 03/06/18 20:25 - Physical Exam Vitals and I&O: Vital Signs Temp 97.9 F 03/18/18 20:00 Pulse 63 03/18/18 20:00 Resp 18 03/18/18 20:00 BP 117/75 03/18/18 20:00 Pulse Ox 97 03/18/18 20:00 Intake & Output 03/18/18 03/18/18 03/19/18 06:59 18:59 06:59 Intake Total 120 250 Balance 120 250 Intake: Oral 120 250 Other: # Voids 3 3 # Bowel Movements 0 1 Active Medications: Current Medications Acetaminophen (Tylenol) 650 mg PO Q4HR PRN PRN Reason: Mild Pain / Temp above 100 Stop: 05/06/18 00:45 Al Hydrox/Mg Hydrox/Simethicone (Maalox) 30 ml PO Q4HR PRN PRN Reason: GI DISTRESS Stop: 05/06/18 00:45 Aripiprazole (Abilify) 10 mg PO DAILY [facility]; Protocol Stop: 05/17/18 08:59 Last Admin: 03/18/18 08:25 Dose: 10 mg Cholecalciferol (Vitamin D3) 3,000 iu PO DAILY [facility] Stop: 05/06/18 08:59 Last Admin: 03/18/18 08:25 Dose: 3,000 iu Docusate Sodium (Colace) 100 mg PO BID [facility] Stop: 05/06/18 08:59 Last Admin: 03/18/18 16:24 Dose: 100 mg Donepezil HCl (Aricept) 10 mg PO HS [facility] Stop: 05/06/18 20:59 Last Admin: 03/18/18 20:54 Dose: 10 mg Escitalopram Oxalate (Lexapro) 20 mg PO DAILY [facility] Stop: 05/13/18 08:59 Last Admin: 03/18/18 08:25 Dose: 20 mg Lorazepam (Ativan) 0.5 mg PO Q4HR PRN; Protocol PRN Reason: Anxiety/Agitation Stop: 04/06/18 00:45 Magnesium Hydroxide (Milk Of Magnesia) 30 ml PO DAILY PRN PRN Reason: Constipation Stop: 05/06/18 16:54 Memantine (Namenda) 10 mg PO BID [facility] Stop: 05/06/18 08:59 Last Admin: 03/18/18 16:24 Dose: 10 mg Multivitamins/Vitamin C (Theragran) 1 tab PO DAILY [facility] Stop: 05/06/18 08:59 Last Admin: 03/18/18 08:25 Dose: 1 tab Thiamine HCl (Vitamin B1) 100 mg PO DAILY [facility] Stop: 05/06/18 08:59 Last Admin: 03/18/18 08:25 Dose: 100 mg Timolol Maleate (Timoptic 0.5% Ophth Soln) 1 drop EACH EYE BID [facility] Stop: 05/06/18 08:59 Last Admin: 03/18/18 16:24 Dose: 1 drop General: demented HEENT: NC/AT, PERRLA, EOMI, anicteric sclerae, throat clear Neck: Supple, No JVD, No thyromegaly, +2 carotid pulse wo bruit, No LAD Lungs: CTAB Cardiovascular: Normal S1, Normal S2, without murmur Abdomen: soft, non-tender, non-distended Extremities: clear Neurological: no change Internal Medicine Assmt/Plan - Assessment Assessment: 1.DJD. 2.DEMENTIA. 3.PSYCHOSIS. - Plan Plan: CONTINUE ON CURRENT MEDICATION AND DIET. Nutritional Asmnt/Malnutr-PDOC - Dietary Evaluation Malnutrition Findings (Please click <Entered> for more info): Nutritional Asmnt/Malnutrition Start: 03/11/18 14: 48 Text: Status: Complete Freq: Protocol: Document 03/11/18 14:48 LCARTUROG (Rec: 03/11/18 14:55 LCARTUROG GEOVANI-FN) Nutritional Asmnt/Malnutrition Patient General Information Nutritional Screening Moderate Risk Diagnosis psychosis agitation Pertinent Medical Hx/Surgical Hx dementia, DJD Subjective Information Pt not available in room at time of visit. Per EMR, PO intake 100% of meals. Current Diet Order/ Nutrition Support regular Pertinent Medications vit D3, colace, theragran, vit B1 Pertinent Labs 03/06 BUN 28 Nutritional Hx/Data Height 1.68 m Height (Calculated Centimeters) 167.6 Current Weight (lbs) 81.647 kg Weight (Calculated Kilograms) 81.6 Weight (Calculated Grams) 82525.6 [place] Body Weight 142 Body Mass Index (BMI) 29.0 Weight Status Overweight GI Symptoms GI Symptoms None Last BM 03/10 Difficult in: None Skin Integrity/Comment: intact Current %PO Good (75-100%) Estimated Nutritional Goals BEE in Kcals: Using Current wt Calories/Kcals/Kg 23-27 Kcals Calculated 9495-8362 Protein: Using Current wt Protein g/k.8 Protein Calculated 66 Fluid: ml 1886-2214ml (1ml/kcal) Nutritional Problem No current Nutrition Prob Problem N/A Malnutrition Alert Is there a minimum of two criteria No selected? Query Text:Check all the applicable criteria. A minimum of two criteria are recommended for diagnosis of either severe or non-severe malnutrition. Malnutrition Related to Morbid Obesity Malnutrition related to morbid obesity No Intervention/Recommendation Comments 1. Continue with regular diet as ordered. 2. Monitor PO intake, wt, labs and skin integrity 3. F/U as low risk in 7 days, 03/18 Expected Outcomes/Goals Expected Outcomes/Goals 1. PO intake to meet at least 75% of nutritional needs. 2. Wt stability, skin to remain intact, labs to approach WNL.
[2018-03-19] MEDS: Multivitamin Tab PO SCH (08:53)
--- NOTE | 2018-03-19 21:21 | Internal Medicine Prog Note ---
Internal Medicine Subjective - Subjective Service Date: 03/19/18 Patient seen and examined:: with staff Patient is:: in bed Per staff patient has:: no adverse event Internal Medicine Objective - Results Result Diagrams: 03/06/18 20:25 03/06/18 20:25 Recent Labs: Laboratory Last Values WBC 7.7 Th/cmm (4.8-10.8) 03/06/18 20:25 RBC 5.25 Mil/cmm (3.80-5.80) 03/06/18 20:25 Hgb 15.6 gm/dL (12-16) 03/06/18 20:25 Hct 46.3 % (41.0-60) 03/06/18 20:25 MCV 88.1 fl (80-99) 03/06/18 20:25 MCH 29.6 pg (27.0-31.0) 03/06/18 20:25 MCHC Differential 33.6 pg (28.0-36.0) 03/06/18 20:25 RDW 13.0 % (11.5-20.0) 03/06/18 20:25 Plt Count 201 Th/cmm (150-400) 03/06/18 20:25 MPV 8.6 fl 03/06/18 20:25 Neutrophils % 70.5 % (40.0-80.0) 03/06/18 20:25 Lymphocytes % 21.6 % (20.0-50.0) 03/06/18 20:25 Monocytes % 5.2 % (2.0-10.0) 03/06/18 20:25 Eosinophils % 2.7 % (0.0-5.0) 03/06/18 20:25 Basophils % 0.0 % (0.0-2.0) 03/06/18 20:25 Sodium 139 mEq/L (136-145) 03/06/18 20:25 Potassium 3.8 mEq/L (3.5-5.1) 03/06/18 20:25 Chloride 106 mEq/L (98-107) 03/06/18 20:25 Carbon Dioxide 27.4 mEq/L (21.0-31.0) 03/06/18 20:25 Anion Gap 9.4 (7.0-16.0) 03/06/18 20:25 BUN 28 mg/dL (7-25) H 03/06/18 20:25 Creatinine 1.0 mg/dL (0.7-1.3) 03/06/18 20:25 Est GFR ( Amer) > 60.0 ml/min (>90) 03/06/18 20:25 Est GFR (Non-Af Amer) > 60.0 ml/min 03/06/18 20:25 BUN/Creatinine Ratio 28.0 03/06/18 20:25 Glucose 100 mg/dL (70-105) 03/06/18 20:25 Calcium 9.9 mg/dL (8.6-10.3) 03/06/18 20:25 Total Bilirubin 0.9 mg/dL (0.3-1.0) 03/06/18 20:25 AST 12 U/L (13-39) L 03/06/18 20:25 ALT 9 U/L (7-52) 03/06/18 20:25 Alkaline Phosphatase 67 U/L (34-104) 03/06/18 20:25 Total Protein 7.4 gm/dL (6.0-8.3) 03/06/18 20:25 Albumin 4.6 gm/dL (4.2-5.5) 03/06/18 20:25 Globulin 2.8 gm/dL 03/06/18 20:25 Albumin/Globulin Ratio 1.6 (1.0-1.8) 03/06/18 20:25 - Physical Exam Vitals and I&O: Vital Signs Temp 97.4 F 03/19/18 20:57 Pulse 70 03/19/18 20:57 Resp 19 03/19/18 20:57 BP 108/69 03/19/18 20:57 Pulse Ox 98 03/19/18 20:57 Intake & Output 03/19/18 03/19/18 03/20/18 06:59 18:59 06:59 Intake Total 800 240 Balance 800 240 Intake: Oral 800 240 Other: # Voids 3 3 # Bowel Movements 0 Active Medications: Current Medications Acetaminophen (Tylenol) 650 mg PO Q4HR PRN PRN Reason: Mild Pain / Temp above 100 Stop: 05/06/18 00:45 Al Hydrox/Mg Hydrox/Simethicone (Maalox) 30 ml PO Q4HR PRN PRN Reason: GI DISTRESS Stop: 05/06/18 00:45 Aripiprazole (Abilify) 10 mg PO DAILY [facility]; Protocol Stop: 05/17/18 08:59 Last Admin: 03/19/18 08:52 Dose: 10 mg Cholecalciferol (Vitamin D3) 3,000 iu PO DAILY [facility] Stop: 05/06/18 08:59 Last Admin: 03/19/18 08:52 Dose: 3,000 iu Docusate Sodium (Colace) 100 mg PO BID [facility] Stop: 05/06/18 08:59 Last Admin: 03/19/18 17:13 Dose: 100 mg Donepezil HCl (Aricept) 10 mg PO HS [facility] Stop: 05/06/18 20:59 Last Admin: 03/19/18 20:13 Dose: 10 mg Escitalopram Oxalate (Lexapro) 20 mg PO DAILY [facility] Stop: 05/13/18 08:59 Last Admin: 03/19/18 08:52 Dose: 20 mg Lorazepam (Ativan) 0.5 mg PO Q4HR PRN; Protocol PRN Reason: Anxiety/Agitation Stop: 04/06/18 00:45 Magnesium Hydroxide (Milk Of Magnesia) 30 ml PO DAILY PRN PRN Reason: Constipation Stop: 05/06/18 16:54 Memantine (Namenda) 10 mg PO BID [facility] Stop: 05/06/18 08:59 Last Admin: 03/19/18 17:13 Dose: 10 mg Multivitamins/Vitamin C (Theragran) 1 tab PO DAILY [facility] Stop: 05/06/18 08:59 Last Admin: 03/19/18 08:53 Dose: 1 tab Thiamine HCl (Vitamin B1) 100 mg PO DAILY [facility] Stop: 05/06/18 08:59 Last Admin: 03/19/18 08:53 Dose: 100 mg Timolol Maleate (Timoptic 0.5% Ophth Soln) 1 drop EACH EYE BID [facility] Stop: 05/06/18 08:59 Last Admin: 03/19/18 17:13 Dose: 1 drop General: demented HEENT: NC/AT, PERRLA, EOMI, anicteric sclerae, throat clear Neck: Supple, No JVD, No thyromegaly, +2 carotid pulse wo bruit, No LAD Lungs: CTAB Cardiovascular: Normal S1, Normal S2, without murmur Abdomen: soft, non-tender, non-distended Extremities: clear Neurological: no change Internal Medicine Assmt/Plan - Assessment Assessment: 1.DJD. 2.DEMENTIA. 3.PSYCHOSIS. - Plan Plan: CONTINUE ON CURRENT MEDICATION AND DIET. Nutritional Asmnt/Malnutr-PDOC - Dietary Evaluation Malnutrition Findings (Please click <Entered> for more info): Nutritional Asmnt/Malnutrition Start: 03/11/18 14: 48 Text: Status: Complete Freq: Protocol: Document 03/11/18 14:48 LCARTUROG (Rec: 03/11/18 14:55 HEN [email or web address]) Nutritional Asmnt/Malnutrition Patient General Information Nutritional Screening Moderate Risk Diagnosis psychosis agitation Pertinent Medical Hx/Surgical Hx dementia, DJD Subjective Information Pt not available in room at time of visit. Per EMR, PO intake 100% of meals. Current Diet Order/ Nutrition Support regular Pertinent Medications vit D3, colace, theragran, vit B1 Pertinent Labs 03/06 BUN 28 Nutritional Hx/Data Height 1.68 m Height (Calculated Centimeters) 167.6 Current Weight (lbs) 81.647 kg Weight (Calculated Kilograms) 81.6 Weight (Calculated Grams) 26692.6 [place] Body Weight 142 Body Mass Index (BMI) 29.0 Weight Status Overweight GI Symptoms GI Symptoms None Last BM 03/10 Difficult in: None Skin Integrity/Comment: intact Current %PO Good (75-100%) Estimated Nutritional Goals BEE in Kcals: Using Current wt Calories/Kcals/Kg 23-27 Kcals Calculated 5559-9224 Protein: Using Current wt Protein g/k.8 Protein Calculated 66 Fluid: ml 1886-2214ml (1ml/kcal) Nutritional Problem No current Nutrition Prob Problem N/A Malnutrition Alert Is there a minimum of two criteria No selected? Query Text:Check all the applicable criteria. A minimum of two criteria are recommended for diagnosis of either severe or non-severe malnutrition. Malnutrition Related to Morbid Obesity Malnutrition related to morbid obesity No Intervention/Recommendation Comments 1. Continue with regular diet as ordered. 2. Monitor PO intake, wt, labs and skin integrity 3. F/U as low risk in 7 days, 03/18 Expected Outcomes/Goals Expected Outcomes/Goals 1. PO intake to meet at least 75% of nutritional needs. 2. Wt stability, skin to remain intact, labs to approach WNL.
--- NOTE | 2018-03-19 21:39 | Progress Notes ---
DATE: 03/19/2018 SUBJECTIVE: Case was discussed with staff of the patient, reviewed records. The patient continues to isolate himself, internally preoccupied. Continues to have poor insight, unable to make safe plan for self-care, unpredictable, impulsive, needing redirection, getting paranoid at times. No side effects from the medication, no sedation, no nausea, no extrapyramidal symptoms and we will continue to work with the patient in group therapy, milieu therapy, and adjust medications as needed. JOB# [id number]
[2018-03-20] MEDS: Multivitamin Tab PO SCH (09:13)
--- NOTE | 2018-03-20 16:43 | Internal Medicine Prog Note ---
Internal Medicine Subjective - Subjective Service Date: 03/20/18 Patient seen and examined:: with staff Patient is:: in bed Per staff patient has:: no adverse event Internal Medicine Objective - Results Result Diagrams: 03/06/18 20:25 03/06/18 20:25 Recent Labs: Laboratory Last Values WBC 7.7 Th/cmm (4.8-10.8) 03/06/18 20:25 RBC 5.25 Mil/cmm (3.80-5.80) 03/06/18 20:25 Hgb 15.6 gm/dL (12-16) 03/06/18 20:25 Hct 46.3 % (41.0-60) 03/06/18 20:25 MCV 88.1 fl (80-99) 03/06/18 20:25 MCH 29.6 pg (27.0-31.0) 03/06/18 20:25 MCHC Differential 33.6 pg (28.0-36.0) 03/06/18 20:25 RDW 13.0 % (11.5-20.0) 03/06/18 20:25 Plt Count 201 Th/cmm (150-400) 03/06/18 20:25 MPV 8.6 fl 03/06/18 20:25 Neutrophils % 70.5 % (40.0-80.0) 03/06/18 20:25 Lymphocytes % 21.6 % (20.0-50.0) 03/06/18 20:25 Monocytes % 5.2 % (2.0-10.0) 03/06/18 20:25 Eosinophils % 2.7 % (0.0-5.0) 03/06/18 20:25 Basophils % 0.0 % (0.0-2.0) 03/06/18 20:25 Sodium 139 mEq/L (136-145) 03/06/18 20:25 Potassium 3.8 mEq/L (3.5-5.1) 03/06/18 20:25 Chloride 106 mEq/L (98-107) 03/06/18 20:25 Carbon Dioxide 27.4 mEq/L (21.0-31.0) 03/06/18 20:25 Anion Gap 9.4 (7.0-16.0) 03/06/18 20:25 BUN 28 mg/dL (7-25) H 03/06/18 20:25 Creatinine 1.0 mg/dL (0.7-1.3) 03/06/18 20:25 Est GFR ( Amer) > 60.0 ml/min (>90) 03/06/18 20:25 Est GFR (Non-Af Amer) > 60.0 ml/min 03/06/18 20:25 BUN/Creatinine Ratio 28.0 03/06/18 20:25 Glucose 100 mg/dL (70-105) 03/06/18 20:25 Calcium 9.9 mg/dL (8.6-10.3) 03/06/18 20:25 Total Bilirubin 0.9 mg/dL (0.3-1.0) 03/06/18 20:25 AST 12 U/L (13-39) L 03/06/18 20:25 ALT 9 U/L (7-52) 03/06/18 20:25 Alkaline Phosphatase 67 U/L (34-104) 03/06/18 20:25 Total Protein 7.4 gm/dL (6.0-8.3) 03/06/18 20:25 Albumin 4.6 gm/dL (4.2-5.5) 03/06/18 20:25 Globulin 2.8 gm/dL 03/06/18 20:25 Albumin/Globulin Ratio 1.6 (1.0-1.8) 03/06/18 20:25 - Physical Exam Vitals and I&O: Vital Signs Temp 98.4 F 03/20/18 14:00 Pulse 63 03/20/18 14:00 Resp 18 03/20/18 14:00 BP 122/74 03/20/18 14:00 Pulse Ox 98 03/20/18 14:00 Intake & Output 03/19/18 03/20/18 03/20/18 18:59 06:59 18:59 Intake Total 800 240 Balance 800 240 Intake: Oral 800 240 Other: # Voids 3 3 # Bowel Movements 0 Active Medications: Current Medications Acetaminophen (Tylenol) 650 mg PO Q4HR PRN PRN Reason: Mild Pain / Temp above 100 Stop: 05/06/18 00:45 Al Hydrox/Mg Hydrox/Simethicone (Maalox) 30 ml PO Q4HR PRN PRN Reason: GI DISTRESS Stop: 05/06/18 00:45 Aripiprazole (Abilify) 15 mg PO DAILY [facility]; Protocol Stop: 05/20/18 08:59 Cholecalciferol (Vitamin D3) 3,000 iu PO DAILY [facility] Stop: 05/06/18 08:59 Last Admin: 03/20/18 09:12 Dose: 3,000 iu Docusate Sodium (Colace) 100 mg PO BID [facility] Stop: 05/06/18 08:59 Last Admin: 03/20/18 16:34 Dose: 100 mg Donepezil HCl (Aricept) 10 mg PO HS [facility] Stop: 05/06/18 20:59 Last Admin: 03/19/18 20:13 Dose: 10 mg Escitalopram Oxalate (Lexapro) 20 mg PO DAILY [facility] Stop: 05/13/18 08:59 Last Admin: 03/20/18 09:13 Dose: 20 mg Lorazepam (Ativan) 0.5 mg PO Q4HR PRN; Protocol PRN Reason: Anxiety/Agitation Stop: 04/06/18 00:45 Magnesium Hydroxide (Milk Of Magnesia) 30 ml PO DAILY PRN PRN Reason: Constipation Stop: 05/06/18 16:54 Memantine (Namenda) 10 mg PO BID [facility] Stop: 05/06/18 08:59 Last Admin: 03/20/18 16:34 Dose: 10 mg Multivitamins/Vitamin C (Theragran) 1 tab PO DAILY [facility] Stop: 05/06/18 08:59 Last Admin: 03/20/18 09:13 Dose: 1 tab Thiamine HCl (Vitamin B1) 100 mg PO DAILY [facility] Stop: 05/06/18 08:59 Last Admin: 03/20/18 09:13 Dose: 100 mg Timolol Maleate (Timoptic 0.5% Ophth Soln) 1 drop EACH EYE BID [facility] Stop: 05/06/18 08:59 Last Admin: 03/20/18 16:34 Dose: 1 drop General: demented HEENT: NC/AT, PERRLA, EOMI, anicteric sclerae, throat clear Neck: Supple, No JVD, No thyromegaly, +2 carotid pulse wo bruit, No LAD Lungs: CTAB Cardiovascular: Normal S1, Normal S2, without murmur Abdomen: soft, non-tender, non-distended Extremities: clear Neurological: no change Internal Medicine Assmt/Plan - Assessment Assessment: 1.DJD. 2.DEMENTIA. 3.PSYCHOSIS. - Plan Plan: CONTINUE ON CURRENT MEDICATION AND DIET. Nutritional Asmnt/Malnutr-PDOC - Dietary Evaluation Malnutrition Findings (Please click <Entered> for more info): Nutritional Asmnt/Malnutrition Start: 03/11/18 14: 48 Text: Status: Complete Freq: Protocol: Document 03/11/18 14:48 LCARTUROG (Rec: 03/11/18 14:55 LCANA ROSA [email or web address]) Nutritional Asmnt/Malnutrition Patient General Information Nutritional Screening Moderate Risk Diagnosis psychosis agitation Pertinent Medical Hx/Surgical Hx dementia, DJD Subjective Information Pt not available in room at time of visit. Per EMR, PO intake 100% of meals. Current Diet Order/ Nutrition Support regular Pertinent Medications vit D3, colace, theragran, vit B1 Pertinent Labs 03/06 BUN 28 Nutritional Hx/Data Height 1.68 m Height (Calculated Centimeters) 167.6 Current Weight (lbs) 81.647 kg Weight (Calculated Kilograms) 81.6 Weight (Calculated Grams) 67417.6 [place] Body Weight 142 Body Mass Index (BMI) 29.0 Weight Status Overweight GI Symptoms GI Symptoms None Last BM 03/10 Difficult in: None Skin Integrity/Comment: intact Current %PO Good (75-100%) Estimated Nutritional Goals BEE in Kcals: Using Current wt Calories/Kcals/Kg 23-27 Kcals Calculated 6636-5299 Protein: Using Current wt Protein g/k.8 Protein Calculated 66 Fluid: ml 1886-2214ml (1ml/kcal) Nutritional Problem No current Nutrition Prob Problem N/A Malnutrition Alert Is there a minimum of two criteria No selected? Query Text:Check all the applicable criteria. A minimum of two criteria are recommended for diagnosis of either severe or non-severe malnutrition. Malnutrition Related to Morbid Obesity Malnutrition related to morbid obesity No Intervention/Recommendation Comments 1. Continue with regular diet as ordered. 2. Monitor PO intake, wt, labs and skin integrity 3. F/U as low risk in 7 days, 03/18 Expected Outcomes/Goals Expected Outcomes/Goals 1. PO intake to meet at least 75% of nutritional needs. 2. Wt stability, skin to remain intact, labs to approach WNL.
--- NOTE | 2018-03-21 02:21 | Progress Notes ---
DATE: 03/20/2018 Case was discussed with staff of the patient, reviewed records. The patient continues to have poor insight, internally preoccupied, stays to himself, not participating in any activity, though he was in this way 2 days ago. He apparently was able to get out of the bed 1 day, then he went back to the way he was. He continues to be unpredictable and impulsive, needing redirection. He is on Abilify and will be increasing the dose to 15 mg a day and so far no side effects with the medication, no sedation, no nausea, no extrapyramidal symptoms. We will continue to work with the patient in group therapy, milieu therapy, adjust medication as needed. JOB# [id number]
[2018-03-21] MEDS: Multivitamin Tab PO SCH (09:50)
--- NOTE | 2018-03-21 15:58 | General Progress Note ---
Subjective - Review of Systems Service Date: 03/21/18 Subjective: resting comfortably no complaint Objective - Results Result Diagrams: 03/06/18 20:25 03/06/18 20:25 Recent Labs: Laboratory Last Values WBC 7.7 Th/cmm (4.8-10.8) 03/06/18 20:25 RBC 5.25 Mil/cmm (3.80-5.80) 03/06/18 20:25 Hgb 15.6 gm/dL (12-16) 03/06/18 20:25 Hct 46.3 % (41.0-60) 03/06/18 20:25 MCV 88.1 fl (80-99) 03/06/18 20:25 MCH 29.6 pg (27.0-31.0) 03/06/18 20:25 MCHC Differential 33.6 pg (28.0-36.0) 03/06/18 20:25 RDW 13.0 % (11.5-20.0) 03/06/18 20:25 Plt Count 201 Th/cmm (150-400) 03/06/18 20:25 MPV 8.6 fl 03/06/18 20:25 Neutrophils % 70.5 % (40.0-80.0) 03/06/18 20:25 Lymphocytes % 21.6 % (20.0-50.0) 03/06/18 20:25 Monocytes % 5.2 % (2.0-10.0) 03/06/18 20:25 Eosinophils % 2.7 % (0.0-5.0) 03/06/18 20:25 Basophils % 0.0 % (0.0-2.0) 03/06/18 20:25 Sodium 139 mEq/L (136-145) 03/06/18 20:25 Potassium 3.8 mEq/L (3.5-5.1) 03/06/18 20:25 Chloride 106 mEq/L (98-107) 03/06/18 20:25 Carbon Dioxide 27.4 mEq/L (21.0-31.0) 03/06/18 20:25 Anion Gap 9.4 (7.0-16.0) 03/06/18 20:25 BUN 28 mg/dL (7-25) H 03/06/18 20:25 Creatinine 1.0 mg/dL (0.7-1.3) 03/06/18 20:25 Est GFR ( Amer) > 60.0 ml/min (>90) 03/06/18 20:25 Est GFR (Non-Af Amer) > 60.0 ml/min 03/06/18 20:25 BUN/Creatinine Ratio 28.0 03/06/18 20:25 Glucose 100 mg/dL (70-105) 03/06/18 20:25 Calcium 9.9 mg/dL (8.6-10.3) 03/06/18 20:25 Total Bilirubin 0.9 mg/dL (0.3-1.0) 03/06/18 20:25 AST 12 U/L (13-39) L 03/06/18 20:25 ALT 9 U/L (7-52) 03/06/18 20:25 Alkaline Phosphatase 67 U/L (34-104) 03/06/18 20:25 Total Protein 7.4 gm/dL (6.0-8.3) 03/06/18 20:25 Albumin 4.6 gm/dL (4.2-5.5) 03/06/18 20:25 Globulin 2.8 gm/dL 03/06/18 20:25 Albumin/Globulin Ratio 1.6 (1.0-1.8) 03/06/18 20:25 - Physical Exam Vitals and I&O: Vital Signs Temp 98.2 F 03/21/18 14:52 Pulse 81 03/21/18 14:52 Resp 20 03/21/18 14:52 BP 116/85 03/21/18 14:52 Pulse Ox 97 03/21/18 14:52 Intake & Output 03/20/18 03/21/18 03/21/18 18:59 06:59 18:59 Intake Total 1400 Balance 1400 Intake: Oral 1400 Other: # Voids 3 # Bowel Movements 1 Active Medications: Current Medications Acetaminophen (Tylenol) 650 mg PO Q4HR PRN PRN Reason: Mild Pain / Temp above 100 Stop: 05/06/18 00:45 Al Hydrox/Mg Hydrox/Simethicone (Maalox) 30 ml PO Q4HR PRN PRN Reason: GI DISTRESS Stop: 05/06/18 00:45 Aripiprazole (Abilify) 15 mg PO DAILY [facility]; Protocol Stop: 05/20/18 08:59 Last Admin: 03/21/18 09:50 Dose: 15 mg Cholecalciferol (Vitamin D3) 3,000 iu PO DAILY [facility] Stop: 05/06/18 08:59 Last Admin: 03/21/18 09:50 Dose: 3,000 iu Docusate Sodium (Colace) 100 mg PO BID [facility] Stop: 05/06/18 08:59 Last Admin: 03/21/18 09:51 Dose: Not Given Donepezil HCl (Aricept) 10 mg PO HS [facility] Stop: 05/06/18 20:59 Last Admin: 03/20/18 20:22 Dose: 10 mg Escitalopram Oxalate (Lexapro) 20 mg PO DAILY [facility] Stop: 05/13/18 08:59 Last Admin: 03/21/18 09:49 Dose: 20 mg Lorazepam (Ativan) 0.5 mg PO Q4HR PRN; Protocol PRN Reason: Anxiety/Agitation Stop: 04/06/18 00:45 Magnesium Hydroxide (Milk Of Magnesia) 30 ml PO DAILY PRN PRN Reason: Constipation Stop: 05/06/18 16:54 Memantine (Namenda) 10 mg PO BID [facility] Stop: 05/06/18 08:59 Last Admin: 03/21/18 09:50 Dose: 10 mg Multivitamins/Vitamin C (Theragran) 1 tab PO DAILY [facility] Stop: 05/06/18 08:59 Last Admin: 03/21/18 09:50 Dose: 1 tab Thiamine HCl (Vitamin B1) 100 mg PO DAILY [facility] Stop: 05/06/18 08:59 Last Admin: 03/21/18 09:50 Dose: 100 mg Timolol Maleate (Timoptic 0.5% Ophth Soln) 1 drop EACH EYE BID [facility] Stop: 05/06/18 08:59 Last Admin: 03/21/18 09:51 Dose: 1 drop General: No acute distress HEENT: Atraumatic, PERRLA Neck: Supple, JVD, Thyromegaly Cardiovascular: Regular rate, Normal S1, Normal S2 Lungs: Clear to auscultation Abdomen: Bowel sounds, Soft Assessment/Plan - Assessment Assessment: 1.DJD. 2.DEMENTIA. 3.PSYCHOSIS. - Plan Plan: continue current treatment Nutritional Asmnt/Malnutr-PDOC - Dietary Evaluation Malnutrition Findings (Please click <Entered> for more info): Nutritional Asmnt/Malnutrition Start: 03/11/18 14: 48 Text: Status: Complete Freq: Protocol: Document 03/11/18 14:48 CORINNE (Rec: 03/11/18 14:55 CORINNE [email or web address]) Nutritional Asmnt/Malnutrition Patient General Information Nutritional Screening Moderate Risk Diagnosis psychosis agitation Pertinent Medical Hx/Surgical Hx dementia, DJD Subjective Information Pt not available in room at time of visit. Per EMR, PO intake 100% of meals. Current Diet Order/ Nutrition Support regular Pertinent Medications vit D3, colace, theragran, vit B1 Pertinent Labs 03/06 BUN 28 Nutritional Hx/Data Height 1.68 m Height (Calculated Centimeters) 167.6 Current Weight (lbs) 81.647 kg Weight (Calculated Kilograms) 81.6 Weight (Calculated Grams) 41468.6 [employer] Body Weight 142 Body Mass Index (BMI) 29.0 Weight Status Overweight GI Symptoms GI Symptoms None Last BM 03/10 Difficult in: None Skin Integrity/Comment: intact Current %PO Good (75-100%) Estimated Nutritional Goals BEE in Kcals: Using Current wt Calories/Kcals/Kg 23-27 Kcals Calculated 0342-9979 Protein: Using Current wt Protein g/k.8 Protein Calculated 66 Fluid: ml 1886-2214ml (1ml/kcal) Nutritional Problem No current Nutrition Prob Problem N/A Malnutrition Alert Is there a minimum of two criteria No selected? Query Text:Check all the applicable criteria. A minimum of two criteria are recommended for diagnosis of either severe or non-severe malnutrition. Malnutrition Related to Morbid Obesity Malnutrition related to morbid obesity No Intervention/Recommendation Comments 1. Continue with regular diet as ordered. 2. Monitor PO intake, wt, labs and skin integrity 3. F/U as low risk in 7 days, 03/18 Expected Outcomes/Goals Expected Outcomes/Goals 1. PO intake to meet at least 75% of nutritional needs. 2. Wt stability, skin to remain intact, labs to approach WNL.
[2018-03-22] MEDS: Multivitamin Tab PO SCH (08:48)
--- NOTE | 2018-03-22 17:50 | Progress Notes ---
DATE: 03/22/2018 SUBJECTIVE: Chart reviewed and the patient interviewed. Also, discussed the patient's condition with the staff and reviewed records and labs. The patient remains in a depressed mood. The patient also is still isolative and is staying by herself most of the time. The patient also still has unpredictable behavior and she still has periods of outbursts. She also seems to be preoccupied. Also, the patient is not participating much in the activities. Also, appetite seems to be poor. Otherwise, the patient continued to comply with taking his medication and no side effects of Abilify and the patient currently is on Abilify 15 mg everyday and also Aricept 10 mg every day as well as Lexapro 20 mg every day with no side effects. JOB# [id number]
--- NOTE | 2018-03-22 18:07 | General Progress Note ---
Subjective - Review of Systems Service Date: 03/22/18 Subjective: resting comfortably no complaint Objective - Results Result Diagrams: 03/06/18 20:25 03/06/18 20:25 Recent Labs: Laboratory Last Values WBC 7.7 Th/cmm (4.8-10.8) 03/06/18 20:25 RBC 5.25 Mil/cmm (3.80-5.80) 03/06/18 20:25 Hgb 15.6 gm/dL (12-16) 03/06/18 20:25 Hct 46.3 % (41.0-60) 03/06/18 20:25 MCV 88.1 fl (80-99) 03/06/18 20:25 MCH 29.6 pg (27.0-31.0) 03/06/18 20:25 MCHC Differential 33.6 pg (28.0-36.0) 03/06/18 20:25 RDW 13.0 % (11.5-20.0) 03/06/18 20:25 Plt Count 201 Th/cmm (150-400) 03/06/18 20:25 MPV 8.6 fl 03/06/18 20:25 Neutrophils % 70.5 % (40.0-80.0) 03/06/18 20:25 Lymphocytes % 21.6 % (20.0-50.0) 03/06/18 20:25 Monocytes % 5.2 % (2.0-10.0) 03/06/18 20:25 Eosinophils % 2.7 % (0.0-5.0) 03/06/18 20:25 Basophils % 0.0 % (0.0-2.0) 03/06/18 20:25 Sodium 139 mEq/L (136-145) 03/06/18 20:25 Potassium 3.8 mEq/L (3.5-5.1) 03/06/18 20:25 Chloride 106 mEq/L (98-107) 03/06/18 20:25 Carbon Dioxide 27.4 mEq/L (21.0-31.0) 03/06/18 20:25 Anion Gap 9.4 (7.0-16.0) 03/06/18 20:25 BUN 28 mg/dL (7-25) H 03/06/18 20:25 Creatinine 1.0 mg/dL (0.7-1.3) 03/06/18 20:25 Est GFR ( Amer) > 60.0 ml/min (>90) 03/06/18 20:25 Est GFR (Non-Af Amer) > 60.0 ml/min 03/06/18 20:25 BUN/Creatinine Ratio 28.0 03/06/18 20:25 Glucose 100 mg/dL (70-105) 03/06/18 20:25 Calcium 9.9 mg/dL (8.6-10.3) 03/06/18 20:25 Total Bilirubin 0.9 mg/dL (0.3-1.0) 03/06/18 20:25 AST 12 U/L (13-39) L 03/06/18 20:25 ALT 9 U/L (7-52) 03/06/18 20:25 Alkaline Phosphatase 67 U/L (34-104) 03/06/18 20:25 Total Protein 7.4 gm/dL (6.0-8.3) 03/06/18 20:25 Albumin 4.6 gm/dL (4.2-5.5) 03/06/18 20:25 Globulin 2.8 gm/dL 03/06/18 20:25 Albumin/Globulin Ratio 1.6 (1.0-1.8) 03/06/18 20:25 - Physical Exam Vitals and I&O: Vital Signs Temp 99.0 F 03/22/18 14:53 Pulse 65 03/22/18 14:53 Resp 20 03/22/18 14:53 BP 112/75 03/22/18 14:53 Pulse Ox 95 03/22/18 14:53 Intake & Output 03/21/18 03/22/18 03/22/18 18:59 06:59 18:59 Intake Total 950 Balance 950 Intake: Oral 950 Other: # Voids 4 # Bowel Movements 1 Active Medications: Current Medications Acetaminophen (Tylenol) 650 mg PO Q4HR PRN PRN Reason: Mild Pain / Temp above 100 Stop: 05/06/18 00:45 Al Hydrox/Mg Hydrox/Simethicone (Maalox) 30 ml PO Q4HR PRN PRN Reason: GI DISTRESS Stop: 05/06/18 00:45 Aripiprazole (Abilify) 15 mg PO DAILY [facility]; Protocol Stop: 05/20/18 08:59 Last Admin: 03/22/18 08:48 Dose: 15 mg Cholecalciferol (Vitamin D3) 3,000 iu PO DAILY [facility] Stop: 05/06/18 08:59 Last Admin: 03/22/18 08:48 Dose: 3,000 iu Docusate Sodium (Colace) 100 mg PO BID [facility] Stop: 05/06/18 08:59 Last Admin: 03/22/18 17:33 Dose: 100 mg Donepezil HCl (Aricept) 10 mg PO HS [facility] Stop: 05/06/18 20:59 Last Admin: 03/21/18 20:46 Dose: 10 mg Escitalopram Oxalate (Lexapro) 20 mg PO DAILY [facility] Stop: 05/13/18 08:59 Last Admin: 03/22/18 08:48 Dose: 20 mg Lorazepam (Ativan) 0.5 mg PO Q4HR PRN; Protocol PRN Reason: Anxiety/Agitation Stop: 04/06/18 00:45 Magnesium Hydroxide (Milk Of Magnesia) 30 ml PO DAILY PRN PRN Reason: Constipation Stop: 05/06/18 16:54 Memantine (Namenda) 10 mg PO BID [facility] Stop: 05/06/18 08:59 Last Admin: 03/22/18 17:33 Dose: 10 mg Multivitamins/Vitamin C (Theragran) 1 tab PO DAILY [facility] Stop: 05/06/18 08:59 Last Admin: 03/22/18 08:48 Dose: 1 tab Thiamine HCl (Vitamin B1) 100 mg PO DAILY [facility] Stop: 05/06/18 08:59 Last Admin: 03/22/18 08:48 Dose: 100 mg Timolol Maleate (Timoptic 0.5% Ophth Soln) 1 drop EACH EYE BID [facility] Stop: 05/06/18 08:59 Last Admin: 03/22/18 17:33 Dose: 1 drop General: No acute distress HEENT: Atraumatic, PERRLA Neck: Supple, JVD, Thyromegaly Cardiovascular: Regular rate, Normal S1, Normal S2 Lungs: Clear to auscultation Abdomen: Bowel sounds, Soft Assessment/Plan - Assessment Assessment: 1.DJD. 2.DEMENTIA. 3.PSYCHOSIS. - Plan Plan: continue current treatment Nutritional Asmnt/Malnutr-PDOC - Dietary Evaluation Malnutrition Findings (Please click <Entered> for more info): Nutritional Asmnt/Malnutrition Start: 03/11/18 14: 48 Text: Status: Complete Freq: Protocol: Document 03/11/18 14:48 CORINNE (Rec: 03/11/18 14:55 CORINNE [email or web address]) Nutritional Asmnt/Malnutrition Patient General Information Nutritional Screening Moderate Risk Diagnosis psychosis agitation Pertinent Medical Hx/Surgical Hx dementia, DJD Subjective Information Pt not available in room at time of visit. Per EMR, PO intake 100% of meals. Current Diet Order/ Nutrition Support regular Pertinent Medications vit D3, colace, theragran, vit B1 Pertinent Labs 03/06 BUN 28 Nutritional Hx/Data Height 1.68 m Height (Calculated Centimeters) 167.6 Current Weight (lbs) 81.647 kg Weight (Calculated Kilograms) 81.6 Weight (Calculated Grams) 08868.6 [place] Body Weight 142 Body Mass Index (BMI) 29.0 Weight Status Overweight GI Symptoms GI Symptoms None Last BM 03/10 Difficult in: None Skin Integrity/Comment: intact Current %PO Good (75-100%) Estimated Nutritional Goals BEE in Kcals: Using Current wt Calories/Kcals/Kg 23-27 Kcals Calculated 2984-7538 Protein: Using Current wt Protein g/k.8 Protein Calculated 66 Fluid: ml 1886-2214ml (1ml/kcal) Nutritional Problem No current Nutrition Prob Problem N/A Malnutrition Alert Is there a minimum of two criteria No selected? Query Text:Check all the applicable criteria. A minimum of two criteria are recommended for diagnosis of either severe or non-severe malnutrition. Malnutrition Related to Morbid Obesity Malnutrition related to morbid obesity No Intervention/Recommendation Comments 1. Continue with regular diet as ordered. 2. Monitor PO intake, wt, labs and skin integrity 3. F/U as low risk in 7 days, 03/18 Expected Outcomes/Goals Expected Outcomes/Goals 1. PO intake to meet at least 75% of nutritional needs. 2. Wt stability, skin to remain intact, labs to approach WNL.
--- NOTE | 2018-03-23 06:45 | Progress Notes ---
DATE: 03/21/[address] Wiseman. SUBJECTIVE: The patient was interviewed. The case was discussed with staff and the chart was reviewed. Per the staff, the patient has been isolating to his room. He has been withdrawn and he has been depressed. The patient was interviewed this morning at bedside, the patient is malodorous. He appears to be withdrawn. He is looking down on the ground. He is unable to communicate much. He states that he is feeling, "I don't know." The patient is unable to really provide very much history. He seems to be guarded at this time and unwilling to engage much with the interview. MENTAL STATUS EXAMINATION: The patient appears his stated age. He is in bed, looking down on the ground, guarded. His speech is soft and minimal. He is selectively mute, at times. His mood is "depressed." Affect constricted. Thought processes somewhat loose. Unable to assess suicidal and homicidal ideations due to his poor cooperation, but he does seem to be internally preoccupied. He also seems to be somewhat paranoid. He is alert and oriented to person, but he is unable to engage much else in the orientation questioning. His insight, judgment and impulse control remain poor. ASSESSMENT: This is a 59-year-old male admitted to [facility] unit. The patient has been psychotic, disorganized, also depressed, isolative, withdrawn. The patient continues to have very poor self-care. He is malodorous. He seems to be withdrawn, isolating and very guarded, unable to communicate much with the interview, needs heavy prompting on the unit. PLAN: I will continue the patient's acute hospitalization. We will continue medications prescribed. Encourage the patient to verbalize his needs. Encourage the patient to participate in group therapy. Encourage the patient to work with the professor of social work and egg caser for discharge planning and need for any community resources. JOB# [id number] ANAI
[2018-03-23] MEDS: Multivitamin Tab PO SCH (08:29)
--- NOTE | 2018-03-23 20:29 | Internal Medicine Prog Note ---
Internal Medicine Subjective - Subjective Service Date: 03/23/18 Patient seen and examined:: with staff Patient is:: in bed Per staff patient has:: no adverse event Internal Medicine Objective - Results Result Diagrams: 03/06/18 20:25 03/06/18 20:25 Recent Labs: Laboratory Last Values WBC 7.7 Th/cmm (4.8-10.8) 03/06/18 20:25 RBC 5.25 Mil/cmm (3.80-5.80) 03/06/18 20:25 Hgb 15.6 gm/dL (12-16) 03/06/18 20:25 Hct 46.3 % (41.0-60) 03/06/18 20:25 MCV 88.1 fl (80-99) 03/06/18 20:25 MCH 29.6 pg (27.0-31.0) 03/06/18 20:25 MCHC Differential 33.6 pg (28.0-36.0) 03/06/18 20:25 RDW 13.0 % (11.5-20.0) 03/06/18 20:25 Plt Count 201 Th/cmm (150-400) 03/06/18 20:25 MPV 8.6 fl 03/06/18 20:25 Neutrophils % 70.5 % (40.0-80.0) 03/06/18 20:25 Lymphocytes % 21.6 % (20.0-50.0) 03/06/18 20:25 Monocytes % 5.2 % (2.0-10.0) 03/06/18 20:25 Eosinophils % 2.7 % (0.0-5.0) 03/06/18 20:25 Basophils % 0.0 % (0.0-2.0) 03/06/18 20:25 Sodium 139 mEq/L (136-145) 03/06/18 20:25 Potassium 3.8 mEq/L (3.5-5.1) 03/06/18 20:25 Chloride 106 mEq/L (98-107) 03/06/18 20:25 Carbon Dioxide 27.4 mEq/L (21.0-31.0) 03/06/18 20:25 Anion Gap 9.4 (7.0-16.0) 03/06/18 20:25 BUN 28 mg/dL (7-25) H 03/06/18 20:25 Creatinine 1.0 mg/dL (0.7-1.3) 03/06/18 20:25 Est GFR ( Amer) > 60.0 ml/min (>90) 03/06/18 20:25 Est GFR (Non-Af Amer) > 60.0 ml/min 03/06/18 20:25 BUN/Creatinine Ratio 28.0 03/06/18 20:25 Glucose 100 mg/dL (70-105) 03/06/18 20:25 Calcium 9.9 mg/dL (8.6-10.3) 03/06/18 20:25 Total Bilirubin 0.9 mg/dL (0.3-1.0) 03/06/18 20:25 AST 12 U/L (13-39) L 03/06/18 20:25 ALT 9 U/L (7-52) 03/06/18 20:25 Alkaline Phosphatase 67 U/L (34-104) 03/06/18 20:25 Total Protein 7.4 gm/dL (6.0-8.3) 03/06/18 20:25 Albumin 4.6 gm/dL (4.2-5.5) 03/06/18 20:25 Globulin 2.8 gm/dL 03/06/18 20:25 Albumin/Globulin Ratio 1.6 (1.0-1.8) 03/06/18 20:25 - Physical Exam Vitals and I&O: Vital Signs Temp 98.2 F 03/23/18 19:43 Pulse 68 03/23/18 19:43 Resp 19 03/23/18 19:43 BP 116/69 03/23/18 19:43 Pulse Ox 96 03/23/18 19:43 Intake & Output 03/23/18 03/23/18 03/24/18 06:59 18:59 06:59 Intake Total 240 1000 180 Balance 240 1000 180 Intake: Oral 240 1000 180 Other: # Voids 3 4 2 # Bowel Movements 0 1 1 Active Medications: Current Medications Acetaminophen (Tylenol) 650 mg PO Q4HR PRN PRN Reason: Mild Pain / Temp above 100 Stop: 05/06/18 00:45 Al Hydrox/Mg Hydrox/Simethicone (Maalox) 30 ml PO Q4HR PRN PRN Reason: GI DISTRESS Stop: 05/06/18 00:45 Aripiprazole (Abilify) 15 mg PO DAILY [facility]; Protocol Stop: 05/20/18 08:59 Last Admin: 03/23/18 08:28 Dose: 15 mg Cholecalciferol (Vitamin D3) 3,000 iu PO DAILY [facility] Stop: 05/06/18 08:59 Last Admin: 03/23/18 08:28 Dose: 3,000 iu Docusate Sodium (Colace) 100 mg PO BID [facility] Stop: 05/06/18 08:59 Last Admin: 03/23/18 16:48 Dose: 100 mg Donepezil HCl (Aricept) 10 mg PO HS [facility] Stop: 05/06/18 20:59 Last Admin: 03/22/18 21:25 Dose: 10 mg Escitalopram Oxalate (Lexapro) 20 mg PO DAILY [facility] Stop: 05/13/18 08:59 Last Admin: 03/23/18 08:29 Dose: 20 mg Lorazepam (Ativan) 0.5 mg PO Q4HR PRN; Protocol PRN Reason: Anxiety/Agitation Stop: 04/06/18 00:45 Last Admin: 03/22/18 21:25 Dose: 0.5 mg Magnesium Hydroxide (Milk Of Magnesia) 30 ml PO DAILY PRN PRN Reason: Constipation Stop: 05/06/18 16:54 Memantine (Namenda) 10 mg PO BID [facility] Stop: 05/06/18 08:59 Last Admin: 03/23/18 16:48 Dose: 10 mg Multivitamins/Vitamin C (Theragran) 1 tab PO DAILY [facility] Stop: 05/06/18 08:59 Last Admin: 03/23/18 08:29 Dose: 1 tab Thiamine HCl (Vitamin B1) 100 mg PO DAILY [facility] Stop: 05/06/18 08:59 Last Admin: 03/23/18 08:28 Dose: 100 mg Timolol Maleate (Timoptic 0.5% Ophth Soln) 1 drop EACH EYE BID [facility] Stop: 05/06/18 08:59 Last Admin: 03/23/18 16:48 Dose: 1 drop General: demented HEENT: NC/AT, PERRLA, EOMI, anicteric sclerae, throat clear Neck: Supple, No JVD, No thyromegaly, +2 carotid pulse wo bruit, No LAD Lungs: CTAB Cardiovascular: Normal S1, Normal S2, without murmur Abdomen: soft, non-tender, non-distended Extremities: clear Neurological: no change Internal Medicine Assmt/Plan - Assessment Assessment: 1.DJD. 2.DEMENTIA. 3.PSYCHOSIS. - Plan Plan: CONTINUE ON CURRENT MEDICATION AND DIET. Nutritional Asmnt/Malnutr-PDOC - Dietary Evaluation Malnutrition Findings (Please click <Entered> for more info): Nutritional Asmnt/Malnutrition Start: 03/11/18 14: 48 Text: Status: Complete Freq: Protocol: Document 03/11/18 14:48 LCHENG (Rec: 03/11/18 14:55 LCHENG [email or web address]) Nutritional Asmnt/Malnutrition Patient General Information Nutritional Screening Moderate Risk Diagnosis psychosis agitation Pertinent Medical Hx/Surgical Hx dementia, DJD Subjective Information Pt not available in room at time of visit. Per EMR, PO intake 100% of meals. Current Diet Order/ Nutrition Support regular Pertinent Medications vit D3, colace, theragran, vit B1 Pertinent Labs 03/06 BUN 28 Nutritional Hx/Data Height 1.68 m Height (Calculated Centimeters) 167.6 Current Weight (lbs) 81.647 kg Weight (Calculated Kilograms) 81.6 Weight (Calculated Grams) 87119.6 [place] Body Weight 142 Body Mass Index (BMI) 29.0 Weight Status Overweight GI Symptoms GI Symptoms None Last BM 03/10 Difficult in: None Skin Integrity/Comment: intact Current %PO Good (75-100%) Estimated Nutritional Goals BEE in Kcals: Using Current wt Calories/Kcals/Kg 23-27 Kcals Calculated 7222-4467 Protein: Using Current wt Protein g/k.8 Protein Calculated 66 Fluid: ml 1886-2214ml (1ml/kcal) Nutritional Problem No current Nutrition Prob Problem N/A Malnutrition Alert Is there a minimum of two criteria No selected? Query Text:Check all the applicable criteria. A minimum of two criteria are recommended for diagnosis of either severe or non-severe malnutrition. Malnutrition Related to Morbid Obesity Malnutrition related to morbid obesity No Intervention/Recommendation Comments 1. Continue with regular diet as ordered. 2. Monitor PO intake, wt, labs and skin integrity 3. F/U as low risk in 7 days, 03/18 Expected Outcomes/Goals Expected Outcomes/Goals 1. PO intake to meet at least 75% of nutritional needs. 2. Wt stability, skin to remain intact, labs to approach WNL.
--- NOTE | 2018-03-23 22:47 | Progress Notes ---
DATE: 03/23/2018 Case discussed with staff of the patient, reviewed records. The patient continues to be confused, isolating, and does have poor insight. Continues to be unpredictable. He is a bit more animated. I did increase his Abilify dose to 15 mg on 03/20/2018. No side effects with the medication, no sedation, no nausea, no extrapyramidal symptoms. We will continue to work with the patient in group therapy and milieu therapy, adjust the medication as needed. JOB# [id number]
[2018-03-24] MEDS: Multivitamin Tab PO SCH (08:13)
--- NOTE | 2018-03-24 20:36 | Progress Notes ---
DATE: 03/24/2018 Case was discussed with staff of the patient, reviewed records. The patient continues to be internally preoccupied, unpredictable, impulsive, needing redirection. Sleeping well, eating well, feeding himself, out of the room, which show some progress. No side effects with the medication, no sedation, no nausea and no extrapyramidal symptoms. We will continue to work with the patient in group therapy, milieu therapy, adjust the medication as needed. JOB# [id number]
--- NOTE | 2018-03-24 20:53 | Internal Medicine Prog Note ---
Internal Medicine Subjective - Subjective Service Date: 03/24/18 Patient seen and examined:: with staff Patient is:: in bed Per staff patient has:: no adverse event Internal Medicine Objective - Results Result Diagrams: 03/06/18 20:25 03/06/18 20:25 Recent Labs: Laboratory Last Values WBC 7.7 Th/cmm (4.8-10.8) 03/06/18 20:25 RBC 5.25 Mil/cmm (3.80-5.80) 03/06/18 20:25 Hgb 15.6 gm/dL (12-16) 03/06/18 20:25 Hct 46.3 % (41.0-60) 03/06/18 20:25 MCV 88.1 fl (80-99) 03/06/18 20:25 MCH 29.6 pg (27.0-31.0) 03/06/18 20:25 MCHC Differential 33.6 pg (28.0-36.0) 03/06/18 20:25 RDW 13.0 % (11.5-20.0) 03/06/18 20:25 Plt Count 201 Th/cmm (150-400) 03/06/18 20:25 MPV 8.6 fl 03/06/18 20:25 Neutrophils % 70.5 % (40.0-80.0) 03/06/18 20:25 Lymphocytes % 21.6 % (20.0-50.0) 03/06/18 20:25 Monocytes % 5.2 % (2.0-10.0) 03/06/18 20:25 Eosinophils % 2.7 % (0.0-5.0) 03/06/18 20:25 Basophils % 0.0 % (0.0-2.0) 03/06/18 20:25 Sodium 139 mEq/L (136-145) 03/06/18 20:25 Potassium 3.8 mEq/L (3.5-5.1) 03/06/18 20:25 Chloride 106 mEq/L (98-107) 03/06/18 20:25 Carbon Dioxide 27.4 mEq/L (21.0-31.0) 03/06/18 20:25 Anion Gap 9.4 (7.0-16.0) 03/06/18 20:25 BUN 28 mg/dL (7-25) H 03/06/18 20:25 Creatinine 1.0 mg/dL (0.7-1.3) 03/06/18 20:25 Est GFR ( Amer) > 60.0 ml/min (>90) 03/06/18 20:25 Est GFR (Non-Af Amer) > 60.0 ml/min 03/06/18 20:25 BUN/Creatinine Ratio 28.0 03/06/18 20:25 Glucose 100 mg/dL (70-105) 03/06/18 20:25 Calcium 9.9 mg/dL (8.6-10.3) 03/06/18 20:25 Total Bilirubin 0.9 mg/dL (0.3-1.0) 03/06/18 20:25 AST 12 U/L (13-39) L 03/06/18 20:25 ALT 9 U/L (7-52) 03/06/18 20:25 Alkaline Phosphatase 67 U/L (34-104) 03/06/18 20:25 Total Protein 7.4 gm/dL (6.0-8.3) 03/06/18 20:25 Albumin 4.6 gm/dL (4.2-5.5) 03/06/18 20:25 Globulin 2.8 gm/dL 03/06/18 20:25 Albumin/Globulin Ratio 1.6 (1.0-1.8) 03/06/18 20:25 - Physical Exam Vitals and I&O: Vital Signs Temp 98.0 F 03/24/18 14:00 Pulse 69 03/24/18 14:00 Resp 18 03/24/18 14:00 BP 112/70 03/24/18 14:00 Pulse Ox 97 03/24/18 14:00 Intake & Output 03/24/18 03/24/18 03/25/18 06:59 18:59 06:59 Intake Total 180 Balance 180 Intake: Oral 180 Other: # Voids 3 # Bowel Movements 0 Active Medications: Current Medications Acetaminophen (Tylenol) 650 mg PO Q4HR PRN PRN Reason: Mild Pain / Temp above 100 Stop: 05/06/18 00:45 Al Hydrox/Mg Hydrox/Simethicone (Maalox) 30 ml PO Q4HR PRN PRN Reason: GI DISTRESS Stop: 05/06/18 00:45 Aripiprazole (Abilify) 15 mg PO DAILY [facility]; Protocol Stop: 05/20/18 08:59 Last Admin: 03/24/18 08:12 Dose: 15 mg Cholecalciferol (Vitamin D3) 3,000 iu PO DAILY [facility] Stop: 05/06/18 08:59 Last Admin: 03/24/18 08:12 Dose: 3,000 iu Docusate Sodium (Colace) 100 mg PO BID [facility] Stop: 05/06/18 08:59 Last Admin: 03/24/18 17:05 Dose: 100 mg Donepezil HCl (Aricept) 10 mg PO HS [facility] Stop: 05/06/18 20:59 Last Admin: 03/24/18 20:12 Dose: 10 mg Escitalopram Oxalate (Lexapro) 20 mg PO DAILY [facility] Stop: 05/13/18 08:59 Last Admin: 03/24/18 08:12 Dose: 20 mg Lorazepam (Ativan) 0.5 mg PO Q4HR PRN; Protocol PRN Reason: Anxiety/Agitation Stop: 04/06/18 00:45 Last Admin: 03/24/18 20:12 Dose: 0.5 mg Magnesium Hydroxide (Milk Of Magnesia) 30 ml PO DAILY PRN PRN Reason: Constipation Stop: 05/06/18 16:54 Memantine (Namenda) 10 mg PO BID [facility] Stop: 05/06/18 08:59 Last Admin: 03/24/18 17:05 Dose: 10 mg Multivitamins/Vitamin C (Theragran) 1 tab PO DAILY [facility] Stop: 05/06/18 08:59 Last Admin: 03/24/18 08:13 Dose: 1 tab Thiamine HCl (Vitamin B1) 100 mg PO DAILY [facility] Stop: 05/06/18 08:59 Last Admin: 03/24/18 08:13 Dose: 100 mg Timolol Maleate (Timoptic 0.5% Ophth Soln) 1 drop EACH EYE BID [facility] Stop: 05/06/18 08:59 Last Admin: 03/24/18 17:05 Dose: 1 drop General: demented HEENT: NC/AT, PERRLA, EOMI, anicteric sclerae, throat clear Neck: Supple, No JVD, No thyromegaly, +2 carotid pulse wo bruit, No LAD Lungs: CTAB Cardiovascular: Normal S1, Normal S2, without murmur Abdomen: soft, non-tender, non-distended Extremities: clear Neurological: no change Internal Medicine Assmt/Plan - Assessment Assessment: 1.DJD. 2.DEMENTIA. 3.PSYCHOSIS. - Plan Plan: CONTINUE ON CURRENT MEDICATION AND DIET. Nutritional Asmnt/Malnutr-PDOC - Dietary Evaluation Malnutrition Findings (Please click <Entered> for more info): Nutritional Asmnt/Malnutrition Start: 03/11/18 14: 48 Text: Status: Complete Freq: Protocol: Document 03/11/18 14:48 LCHENG (Rec: 03/11/18 14:55 LCHENG [email or web address]) Nutritional Asmnt/Malnutrition Patient General Information Nutritional Screening Moderate Risk Diagnosis psychosis agitation Pertinent Medical Hx/Surgical Hx dementia, DJD Subjective Information Pt not available in room at time of visit. Per EMR, PO intake 100% of meals. Current Diet Order/ Nutrition Support regular Pertinent Medications vit D3, colace, theragran, vit B1 Pertinent Labs 03/06 BUN 28 Nutritional Hx/Data Height 1.68 m Height (Calculated Centimeters) 167.6 Current Weight (lbs) 81.647 kg Weight (Calculated Kilograms) 81.6 Weight (Calculated Grams) 17766.6 [place] Body Weight 142 Body Mass Index (BMI) 29.0 Weight Status Overweight GI Symptoms GI Symptoms None Last BM 03/10 Difficult in: None Skin Integrity/Comment: intact Current %PO Good (75-100%) Estimated Nutritional Goals BEE in Kcals: Using Current wt Calories/Kcals/Kg 23-27 Kcals Calculated 6324-5428 Protein: Using Current wt Protein g/k.8 Protein Calculated 66 Fluid: ml 1886-2214ml (1ml/kcal) Nutritional Problem No current Nutrition Prob Problem N/A Malnutrition Alert Is there a minimum of two criteria No selected? Query Text:Check all the applicable criteria. A minimum of two criteria are recommended for diagnosis of either severe or non-severe malnutrition. Malnutrition Related to Morbid Obesity Malnutrition related to morbid obesity No Intervention/Recommendation Comments 1. Continue with regular diet as ordered. 2. Monitor PO intake, wt, labs and skin integrity 3. F/U as low risk in 7 days, 03/18 Expected Outcomes/Goals Expected Outcomes/Goals 1. PO intake to meet at least 75% of nutritional needs. 2. Wt stability, skin to remain intact, labs to approach WNL.
[2018-03-25] MEDS: Multivitamin Tab PO SCH (08:09)
--- NOTE | 2018-03-25 11:01 | Progress Notes ---
DATE: 03/25/2018 Case was discussed with staff of the patient, reviewed records. The patient tolerated the increase in Abilify to 15 mg daily. He is also on Aricept 10 mg at bedtime, Lexapro 20 mg daily. He is so far tend to isolate himself and tend to be paranoid at times. He, however, is denying any current intent to harm himself or anybody. Sleeping better, eating better, but still looking suspicious at times. No side effects with the medication. No sedation or nausea, no extrapyramidal symptoms. We will continue the patient in group therapy, milieu therapy, and adjust medications as needed. JOB# [id number]
--- NOTE | 2018-03-25 21:43 | Internal Medicine Prog Note ---
Internal Medicine Subjective - Subjective Service Date: 03/25/18 Patient seen and examined:: with staff Patient is:: in bed Per staff patient has:: no adverse event Internal Medicine Objective - Results Result Diagrams: 03/06/18 20:25 03/06/18 20:25 Recent Labs: Laboratory Last Values WBC 7.7 Th/cmm (4.8-10.8) 03/06/18 20:25 RBC 5.25 Mil/cmm (3.80-5.80) 03/06/18 20:25 Hgb 15.6 gm/dL (12-16) 03/06/18 20:25 Hct 46.3 % (41.0-60) 03/06/18 20:25 MCV 88.1 fl (80-99) 03/06/18 20:25 MCH 29.6 pg (27.0-31.0) 03/06/18 20:25 MCHC Differential 33.6 pg (28.0-36.0) 03/06/18 20:25 RDW 13.0 % (11.5-20.0) 03/06/18 20:25 Plt Count 201 Th/cmm (150-400) 03/06/18 20:25 MPV 8.6 fl 03/06/18 20:25 Neutrophils % 70.5 % (40.0-80.0) 03/06/18 20:25 Lymphocytes % 21.6 % (20.0-50.0) 03/06/18 20:25 Monocytes % 5.2 % (2.0-10.0) 03/06/18 20:25 Eosinophils % 2.7 % (0.0-5.0) 03/06/18 20:25 Basophils % 0.0 % (0.0-2.0) 03/06/18 20:25 Sodium 139 mEq/L (136-145) 03/06/18 20:25 Potassium 3.8 mEq/L (3.5-5.1) 03/06/18 20:25 Chloride 106 mEq/L (98-107) 03/06/18 20:25 Carbon Dioxide 27.4 mEq/L (21.0-31.0) 03/06/18 20:25 Anion Gap 9.4 (7.0-16.0) 03/06/18 20:25 BUN 28 mg/dL (7-25) H 03/06/18 20:25 Creatinine 1.0 mg/dL (0.7-1.3) 03/06/18 20:25 Est GFR ( Amer) > 60.0 ml/min (>90) 03/06/18 20:25 Est GFR (Non-Af Amer) > 60.0 ml/min 03/06/18 20:25 BUN/Creatinine Ratio 28.0 03/06/18 20:25 Glucose 100 mg/dL (70-105) 03/06/18 20:25 Calcium 9.9 mg/dL (8.6-10.3) 03/06/18 20:25 Total Bilirubin 0.9 mg/dL (0.3-1.0) 03/06/18 20:25 AST 12 U/L (13-39) L 03/06/18 20:25 ALT 9 U/L (7-52) 03/06/18 20:25 Alkaline Phosphatase 67 U/L (34-104) 03/06/18 20:25 Total Protein 7.4 gm/dL (6.0-8.3) 03/06/18 20:25 Albumin 4.6 gm/dL (4.2-5.5) 03/06/18 20:25 Globulin 2.8 gm/dL 03/06/18 20:25 Albumin/Globulin Ratio 1.6 (1.0-1.8) 03/06/18 20:25 - Physical Exam Vitals and I&O: Vital Signs Temp 97 F 03/25/18 19:50 Pulse 59 03/25/18 20:00 Resp 20 03/25/18 20:00 BP 131/69 03/25/18 19:50 Pulse Ox 96 03/25/18 19:50 Intake & Output 03/25/18 03/25/18 03/26/18 06:59 18:59 06:59 Intake Total 120 500 Balance 120 500 Intake: Oral 120 500 Other: # Voids 2 2 # Bowel Movements 1 Active Medications: Current Medications Acetaminophen (Tylenol) 650 mg PO Q4HR PRN PRN Reason: Mild Pain / Temp above 100 Stop: 05/06/18 00:45 Al Hydrox/Mg Hydrox/Simethicone (Maalox) 30 ml PO Q4HR PRN PRN Reason: GI DISTRESS Stop: 05/06/18 00:45 Aripiprazole (Abilify) 15 mg PO DAILY [facility]; Protocol Stop: 05/20/18 08:59 Last Admin: 03/25/18 08:09 Dose: 15 mg Cholecalciferol (Vitamin D3) 3,000 iu PO DAILY [facility] Stop: 05/06/18 08:59 Last Admin: 03/25/18 08:09 Dose: 3,000 iu Docusate Sodium (Colace) 100 mg PO BID [facility] Stop: 05/06/18 08:59 Last Admin: 03/25/18 16:19 Dose: 100 mg Donepezil HCl (Aricept) 10 mg PO HS [facility] Stop: 05/06/18 20:59 Last Admin: 03/25/18 21:17 Dose: 10 mg Escitalopram Oxalate (Lexapro) 20 mg PO DAILY [facility] Stop: 05/13/18 08:59 Last Admin: 03/25/18 08:09 Dose: 20 mg Lorazepam (Ativan) 0.5 mg PO Q4HR PRN; Protocol PRN Reason: Anxiety/Agitation Stop: 04/06/18 00:45 Last Admin: 03/24/18 20:12 Dose: 0.5 mg Magnesium Hydroxide (Milk Of Magnesia) 30 ml PO DAILY PRN PRN Reason: Constipation Stop: 05/06/18 16:54 Memantine (Namenda) 10 mg PO BID [facility] Stop: 05/06/18 08:59 Last Admin: 03/25/18 16:19 Dose: 10 mg Multivitamins/Vitamin C (Theragran) 1 tab PO DAILY [facility] Stop: 05/06/18 08:59 Last Admin: 03/25/18 08:09 Dose: 1 tab Thiamine HCl (Vitamin B1) 100 mg PO DAILY [facility] Stop: 05/06/18 08:59 Last Admin: 03/25/18 08:10 Dose: 100 mg Timolol Maleate (Timoptic 0.5% Ophth Soln) 1 drop EACH EYE BID [facility] Stop: 05/06/18 08:59 Last Admin: 03/25/18 16:19 Dose: 1 drop General: demented HEENT: NC/AT, PERRLA, EOMI, anicteric sclerae, throat clear Neck: Supple, No JVD, No thyromegaly, +2 carotid pulse wo bruit, No LAD Lungs: CTAB Cardiovascular: Normal S1, Normal S2, without murmur Abdomen: soft, non-tender, non-distended Extremities: clear Neurological: no change Internal Medicine Assmt/Plan - Assessment Assessment: 1.DJD. 2.DEMENTIA. 3.PSYCHOSIS. - Plan Plan: CONTINUE ON CURRENT MEDICATION AND DIET. Nutritional Asmnt/Malnutr-PDOC - Dietary Evaluation Malnutrition Findings (Please click <Entered> for more info): Nutritional Asmnt/Malnutrition Start: 03/11/18 14: 48 Text: Status: Complete Freq: Protocol: Document 03/11/18 14:48 LCHENG (Rec: 03/11/18 14:55 LCHENG [email or web address]) Nutritional Asmnt/Malnutrition Patient General Information Nutritional Screening Moderate Risk Diagnosis psychosis agitation Pertinent Medical Hx/Surgical Hx dementia, DJD Subjective Information Pt not available in room at time of visit. Per EMR, PO intake 100% of meals. Current Diet Order/ Nutrition Support regular Pertinent Medications vit D3, colace, theragran, vit B1 Pertinent Labs 03/06 BUN 28 Nutritional Hx/Data Height 1.68 m Height (Calculated Centimeters) 167.6 Current Weight (lbs) 81.647 kg Weight (Calculated Kilograms) 81.6 Weight (Calculated Grams) 39007.6 [place] Body Weight 142 Body Mass Index (BMI) 29.0 Weight Status Overweight GI Symptoms GI Symptoms None Last BM 03/10 Difficult in: None Skin Integrity/Comment: intact Current %PO Good (75-100%) Estimated Nutritional Goals BEE in Kcals: Using Current wt Calories/Kcals/Kg 23-27 Kcals Calculated 0767-9506 Protein: Using Current wt Protein g/k.8 Protein Calculated 66 Fluid: ml 1886-2214ml (1ml/kcal) Nutritional Problem No current Nutrition Prob Problem N/A Malnutrition Alert Is there a minimum of two criteria No selected? Query Text:Check all the applicable criteria. A minimum of two criteria are recommended for diagnosis of either severe or non-severe malnutrition. Malnutrition Related to Morbid Obesity Malnutrition related to morbid obesity No Intervention/Recommendation Comments 1. Continue with regular diet as ordered. 2. Monitor PO intake, wt, labs and skin integrity 3. F/U as low risk in 7 days, 03/18 Expected Outcomes/Goals Expected Outcomes/Goals 1. PO intake to meet at least 75% of nutritional needs. 2. Wt stability, skin to remain intact, labs to approach WNL.
[2018-03-26] MEDS: Multivitamin Tab PO SCH (08:26)
--- NOTE | 2018-03-26 15:17 | Progress Notes ---
DATE: 03/26/2018 Case was discussed with staff of the patient. The staff report that he has been acting like hermit. He is staying in bed, it is unlike him, compared to his previous admission. Continues to appear to be depressed, isolating, not participating in conversation saying to himself. Continues to be unpredictable and impulsive, needing redirection, internally preoccupied. I will be adding Wellbutrin to help with his depressive symptoms isolation. We will be adding Wellbutrin. Discussed side effects, no sedation, no nausea, no extrapyramidal symptoms with the current medication. We will continue to work with the patient in group therapy, milieu that, and adjust medications as needed. JOB# [id number]
--- NOTE | 2018-03-26 22:18 | Internal Medicine Prog Note ---
Internal Medicine Subjective - Subjective Service Date: 03/26/18 Patient seen and examined:: with staff Patient is:: in bed Per staff patient has:: no adverse event Internal Medicine Objective - Results Result Diagrams: 03/06/18 20:25 03/06/18 20:25 Recent Labs: Laboratory Last Values WBC 7.7 Th/cmm (4.8-10.8) 03/06/18 20:25 RBC 5.25 Mil/cmm (3.80-5.80) 03/06/18 20:25 Hgb 15.6 gm/dL (12-16) 03/06/18 20:25 Hct 46.3 % (41.0-60) 03/06/18 20:25 MCV 88.1 fl (80-99) 03/06/18 20:25 MCH 29.6 pg (27.0-31.0) 03/06/18 20:25 MCHC Differential 33.6 pg (28.0-36.0) 03/06/18 20:25 RDW 13.0 % (11.5-20.0) 03/06/18 20:25 Plt Count 201 Th/cmm (150-400) 03/06/18 20:25 MPV 8.6 fl 03/06/18 20:25 Neutrophils % 70.5 % (40.0-80.0) 03/06/18 20:25 Lymphocytes % 21.6 % (20.0-50.0) 03/06/18 20:25 Monocytes % 5.2 % (2.0-10.0) 03/06/18 20:25 Eosinophils % 2.7 % (0.0-5.0) 03/06/18 20:25 Basophils % 0.0 % (0.0-2.0) 03/06/18 20:25 Sodium 139 mEq/L (136-145) 03/06/18 20:25 Potassium 3.8 mEq/L (3.5-5.1) 03/06/18 20:25 Chloride 106 mEq/L (98-107) 03/06/18 20:25 Carbon Dioxide 27.4 mEq/L (21.0-31.0) 03/06/18 20:25 Anion Gap 9.4 (7.0-16.0) 03/06/18 20:25 BUN 28 mg/dL (7-25) H 03/06/18 20:25 Creatinine 1.0 mg/dL (0.7-1.3) 03/06/18 20:25 Est GFR ( Amer) > 60.0 ml/min (>90) 03/06/18 20:25 Est GFR (Non-Af Amer) > 60.0 ml/min 03/06/18 20:25 BUN/Creatinine Ratio 28.0 03/06/18 20:25 Glucose 100 mg/dL (70-105) 03/06/18 20:25 Calcium 9.9 mg/dL (8.6-10.3) 03/06/18 20:25 Total Bilirubin 0.9 mg/dL (0.3-1.0) 03/06/18 20:25 AST 12 U/L (13-39) L 03/06/18 20:25 ALT 9 U/L (7-52) 03/06/18 20:25 Alkaline Phosphatase 67 U/L (34-104) 03/06/18 20:25 Total Protein 7.4 gm/dL (6.0-8.3) 03/06/18 20:25 Albumin 4.6 gm/dL (4.2-5.5) 03/06/18 20:25 Globulin 2.8 gm/dL 03/06/18 20:25 Albumin/Globulin Ratio 1.6 (1.0-1.8) 03/06/18 20:25 - Physical Exam Vitals and I&O: Vital Signs Temp 98.1 F 03/26/18 20:34 Pulse 60 03/26/18 20:34 Resp 20 03/26/18 20:34 BP 105/69 03/26/18 20:34 Pulse Ox 94 03/26/18 14:00 Intake & Output 03/26/18 03/26/18 03/27/18 06:59 18:59 06:59 Intake Total 120 1350 500 Balance 120 1350 500 Intake: Oral 120 1350 500 Other: # Voids 2 4 3 # Bowel Movements 0 0 Active Medications: Current Medications Acetaminophen (Tylenol) 650 mg PO Q4HR PRN PRN Reason: Mild Pain / Temp above 100 Stop: 05/06/18 00:45 Al Hydrox/Mg Hydrox/Simethicone (Maalox) 30 ml PO Q4HR PRN PRN Reason: GI DISTRESS Stop: 05/06/18 00:45 Aripiprazole (Abilify) 15 mg PO DAILY [facility]; Protocol Stop: 05/20/18 08:59 Last Admin: 03/26/18 08:26 Dose: 15 mg Bupropion HCl (Wellbutrin Sr) 100 mg PO DAILY [facility]; Protocol Stop: 05/26/18 08:59 Cholecalciferol (Vitamin D3) 3,000 iu PO DAILY [facility] Stop: 05/06/18 08:59 Last Admin: 03/26/18 08:26 Dose: 3,000 iu Docusate Sodium (Colace) 100 mg PO BID [facility] Stop: 05/06/18 08:59 Last Admin: 03/26/18 16:43 Dose: 100 mg Donepezil HCl (Aricept) 10 mg PO HS [facility] Stop: 05/06/18 20:59 Last Admin: 03/26/18 21:19 Dose: 10 mg Escitalopram Oxalate (Lexapro) 20 mg PO DAILY [facility] Stop: 05/13/18 08:59 Last Admin: 03/26/18 08:26 Dose: 20 mg Lorazepam (Ativan) 0.5 mg PO Q4HR PRN; Protocol PRN Reason: Anxiety/Agitation Stop: 04/06/18 00:45 Last Admin: 03/24/18 20:12 Dose: 0.5 mg Magnesium Hydroxide (Milk Of Magnesia) 30 ml PO DAILY PRN PRN Reason: Constipation Stop: 05/06/18 16:54 Memantine (Namenda) 10 mg PO BID [facility] Stop: 05/06/18 08:59 Last Admin: 03/26/18 16:44 Dose: 10 mg Multivitamins/Vitamin C (Theragran) 1 tab PO DAILY [facility] Stop: 05/06/18 08:59 Last Admin: 03/26/18 08:26 Dose: 1 tab Thiamine HCl (Vitamin B1) 100 mg PO DAILY [facility] Stop: 05/06/18 08:59 Last Admin: 03/26/18 08:27 Dose: 100 mg Timolol Maleate (Timoptic 0.5% Ophth Soln) 1 drop EACH EYE BID [facility] Stop: 05/06/18 08:59 Last Admin: 03/26/18 16:42 Dose: 1 drop General: demented HEENT: NC/AT, PERRLA, EOMI, anicteric sclerae, throat clear Neck: Supple, No JVD, No thyromegaly, +2 carotid pulse wo bruit, No LAD Lungs: CTAB Cardiovascular: Normal S1, Normal S2, without murmur Abdomen: soft, non-tender, non-distended Extremities: clear Neurological: no change Internal Medicine Assmt/Plan - Assessment Assessment: 1.DJD. 2.DEMENTIA. 3.PSYCHOSIS. - Plan Plan: CONTINUE ON CURRENT MEDICATION AND DIET. Nutritional Asmnt/Malnutr-PDOC - Dietary Evaluation Malnutrition Findings (Please click <Entered> for more info): Nutritional Asmnt/Malnutrition Start: 03/11/18 14: 48 Text: Status: Complete Freq: Protocol: Document 03/11/18 14:48 LCARTUROG (Rec: 03/11/18 14:55 LCARTUROG [email or web address]) Nutritional Asmnt/Malnutrition Patient General Information Nutritional Screening Moderate Risk Diagnosis psychosis agitation Pertinent Medical Hx/Surgical Hx dementia, DJD Subjective Information Pt not available in room at time of visit. Per EMR, PO intake 100% of meals. Current Diet Order/ Nutrition Support regular Pertinent Medications vit D3, colace, theragran, vit B1 Pertinent Labs 03/06 BUN 28 Nutritional Hx/Data Height 1.68 m Height (Calculated Centimeters) 167.6 Current Weight (lbs) 81.647 kg Weight (Calculated Kilograms) 81.6 Weight (Calculated Grams) 67839.6 [place] Body Weight 142 Body Mass Index (BMI) 29.0 Weight Status Overweight GI Symptoms GI Symptoms None Last BM 03/10 Difficult in: None Skin Integrity/Comment: intact Current %PO Good (75-100%) Estimated Nutritional Goals BEE in Kcals: Using Current wt Calories/Kcals/Kg 23-27 Kcals Calculated 7057-0221 Protein: Using Current wt Protein g/k.8 Protein Calculated 66 Fluid: ml 1886-2214ml (1ml/kcal) Nutritional Problem No current Nutrition Prob Problem N/A Malnutrition Alert Is there a minimum of two criteria No selected? Query Text:Check all the applicable criteria. A minimum of two criteria are recommended for diagnosis of either severe or non-severe malnutrition. Malnutrition Related to Morbid Obesity Malnutrition related to morbid obesity No Intervention/Recommendation Comments 1. Continue with regular diet as ordered. 2. Monitor PO intake, wt, labs and skin integrity 3. F/U as low risk in 7 days, 03/18 Expected Outcomes/Goals Expected Outcomes/Goals 1. PO intake to meet at least 75% of nutritional needs. 2. Wt stability, skin to remain intact, labs to approach WNL.
[2018-03-27] MEDS: Multivitamin Tab PO SCH (09:41)
--- NOTE | 2018-03-27 22:55 | Internal Medicine Prog Note ---
Internal Medicine Subjective - Subjective Service Date: 03/27/18 Patient seen and examined:: with staff Patient is:: in bed Per staff patient has:: no adverse event Internal Medicine Objective - Results Result Diagrams: 03/06/18 20:25 03/06/18 20:25 Recent Labs: Laboratory Last Values WBC 7.7 Th/cmm (4.8-10.8) 03/06/18 20:25 RBC 5.25 Mil/cmm (3.80-5.80) 03/06/18 20:25 Hgb 15.6 gm/dL (12-16) 03/06/18 20:25 Hct 46.3 % (41.0-60) 03/06/18 20:25 MCV 88.1 fl (80-99) 03/06/18 20:25 MCH 29.6 pg (27.0-31.0) 03/06/18 20:25 MCHC Differential 33.6 pg (28.0-36.0) 03/06/18 20:25 RDW 13.0 % (11.5-20.0) 03/06/18 20:25 Plt Count 201 Th/cmm (150-400) 03/06/18 20:25 MPV 8.6 fl 03/06/18 20:25 Neutrophils % 70.5 % (40.0-80.0) 03/06/18 20:25 Lymphocytes % 21.6 % (20.0-50.0) 03/06/18 20:25 Monocytes % 5.2 % (2.0-10.0) 03/06/18 20:25 Eosinophils % 2.7 % (0.0-5.0) 03/06/18 20:25 Basophils % 0.0 % (0.0-2.0) 03/06/18 20:25 Sodium 139 mEq/L (136-145) 03/06/18 20:25 Potassium 3.8 mEq/L (3.5-5.1) 03/06/18 20:25 Chloride 106 mEq/L (98-107) 03/06/18 20:25 Carbon Dioxide 27.4 mEq/L (21.0-31.0) 03/06/18 20:25 Anion Gap 9.4 (7.0-16.0) 03/06/18 20:25 BUN 28 mg/dL (7-25) H 03/06/18 20:25 Creatinine 1.0 mg/dL (0.7-1.3) 03/06/18 20:25 Est GFR ( Amer) > 60.0 ml/min (>90) 03/06/18 20:25 Est GFR (Non-Af Amer) > 60.0 ml/min 03/06/18 20:25 BUN/Creatinine Ratio 28.0 03/06/18 20:25 Glucose 100 mg/dL (70-105) 03/06/18 20:25 Calcium 9.9 mg/dL (8.6-10.3) 03/06/18 20:25 Total Bilirubin 0.9 mg/dL (0.3-1.0) 03/06/18 20:25 AST 12 U/L (13-39) L 03/06/18 20:25 ALT 9 U/L (7-52) 03/06/18 20:25 Alkaline Phosphatase 67 U/L (34-104) 03/06/18 20:25 Total Protein 7.4 gm/dL (6.0-8.3) 03/06/18 20:25 Albumin 4.6 gm/dL (4.2-5.5) 03/06/18 20:25 Globulin 2.8 gm/dL 03/06/18 20:25 Albumin/Globulin Ratio 1.6 (1.0-1.8) 03/06/18 20:25 - Physical Exam Vitals and I&O: Vital Signs Temp 97.6 F 03/27/18 20:00 Pulse 71 03/27/18 20:00 Resp 18 03/27/18 20:00 BP 113/73 03/27/18 20:00 Pulse Ox 95 03/27/18 20:00 Intake & Output 03/27/18 03/27/18 03/28/18 06:59 18:59 06:59 Intake Total 500 1200 250 Balance 500 1200 250 Intake: Oral 500 1200 250 Other: # Voids 3 # Bowel Movements 0 1 Stool Characteristics Soft Active Medications: Current Medications Acetaminophen (Tylenol) 650 mg PO Q4HR PRN PRN Reason: Mild Pain / Temp above 100 Stop: 05/06/18 00:45 Al Hydrox/Mg Hydrox/Simethicone (Maalox) 30 ml PO Q4HR PRN PRN Reason: GI DISTRESS Stop: 05/06/18 00:45 Aripiprazole (Abilify) 15 mg PO DAILY [facility]; Protocol Stop: 05/20/18 08:59 Last Admin: 03/27/18 09:41 Dose: 15 mg Bupropion HCl (Wellbutrin Sr) 150 mg PO DAILY [facility]; Protocol Stop: 05/27/18 08:59 Cholecalciferol (Vitamin D3) 3,000 iu PO DAILY [facility] Stop: 05/06/18 08:59 Last Admin: 03/27/18 09:40 Dose: 3,000 iu Docusate Sodium (Colace) 100 mg PO BID [facility] Stop: 05/06/18 08:59 Last Admin: 03/27/18 16:53 Dose: 100 mg Donepezil HCl (Aricept) 10 mg PO HS [facility] Stop: 05/06/18 20:59 Last Admin: 03/27/18 21:08 Dose: 10 mg Escitalopram Oxalate (Lexapro) 20 mg PO DAILY [facility] Stop: 05/13/18 08:59 Last Admin: 03/27/18 09:40 Dose: 20 mg Lorazepam (Ativan) 0.5 mg PO Q4HR PRN; Protocol PRN Reason: Anxiety/Agitation Stop: 04/06/18 00:45 Last Admin: 03/24/18 20:12 Dose: 0.5 mg Magnesium Hydroxide (Milk Of Magnesia) 30 ml PO DAILY PRN PRN Reason: Constipation Stop: 05/06/18 16:54 Memantine (Namenda) 10 mg PO BID [facility] Stop: 05/06/18 08:59 Last Admin: 03/27/18 16:53 Dose: 10 mg Multivitamins/Vitamin C (Theragran) 1 tab PO DAILY [facility] Stop: 05/06/18 08:59 Last Admin: 03/27/18 09:41 Dose: 1 tab Thiamine HCl (Vitamin B1) 100 mg PO DAILY [facility] Stop: 05/06/18 08:59 Last Admin: 03/27/18 09:41 Dose: 100 mg Timolol Maleate (Timoptic 0.5% Ophth Soln) 1 drop EACH EYE BID [facility] Stop: 05/06/18 08:59 Last Admin: 03/27/18 16:53 Dose: 1 drop General: demented HEENT: NC/AT, PERRLA, EOMI, anicteric sclerae, throat clear Neck: Supple, No JVD, No thyromegaly, +2 carotid pulse wo bruit, No LAD Lungs: CTAB Cardiovascular: Normal S1, Normal S2, without murmur Abdomen: soft, non-tender, non-distended Extremities: clear Neurological: no change Internal Medicine Assmt/Plan - Assessment Assessment: 1.DJD. 2.DEMENTIA. 3.PSYCHOSIS. - Plan Plan: CONTINUE ON CURRENT MEDICATION AND DIET. Nutritional Asmnt/Malnutr-PDOC - Dietary Evaluation Malnutrition Findings (Please click <Entered> for more info): Nutritional Asmnt/Malnutrition Start: 03/11/18 14: 48 Text: Status: Complete Freq: Protocol: Document 03/11/18 14:48 LCARTUROG (Rec: 03/11/18 14:55 LCARTUROG [email or web address]) Nutritional Asmnt/Malnutrition Patient General Information Nutritional Screening Moderate Risk Diagnosis psychosis agitation Pertinent Medical Hx/Surgical Hx dementia, DJD Subjective Information Pt not available in room at time of visit. Per EMR, PO intake 100% of meals. Current Diet Order/ Nutrition Support regular Pertinent Medications vit D3, colace, theragran, vit B1 Pertinent Labs 03/06 BUN 28 Nutritional Hx/Data Height 1.68 m Height (Calculated Centimeters) 167.6 Current Weight (lbs) 81.647 kg Weight (Calculated Kilograms) 81.6 Weight (Calculated Grams) 95266.6 [place] Body Weight 142 Body Mass Index (BMI) 29.0 Weight Status Overweight GI Symptoms GI Symptoms None Last BM 03/10 Difficult in: None Skin Integrity/Comment: intact Current %PO Good (75-100%) Estimated Nutritional Goals BEE in Kcals: Using Current wt Calories/Kcals/Kg 23-27 Kcals Calculated 6099-5683 Protein: Using Current wt Protein g/k.8 Protein Calculated 66 Fluid: ml 1886-2214ml (1ml/kcal) Nutritional Problem No current Nutrition Prob Problem N/A Malnutrition Alert Is there a minimum of two criteria No selected? Query Text:Check all the applicable criteria. A minimum of two criteria are recommended for diagnosis of either severe or non-severe malnutrition. Malnutrition Related to Morbid Obesity Malnutrition related to morbid obesity No Intervention/Recommendation Comments 1. Continue with regular diet as ordered. 2. Monitor PO intake, wt, labs and skin integrity 3. F/U as low risk in 7 days, 03/18 Expected Outcomes/Goals Expected Outcomes/Goals 1. PO intake to meet at least 75% of nutritional needs. 2. Wt stability, skin to remain intact, labs to approach WNL.
--- NOTE | 2018-03-27 23:45 | Progress Notes ---
DATE: 03/27/2018 SUBJECTIVE: Case was discussed with staff of the patient and reviewed records. The patient continues to be depressed, isolating himself, continues to have poor insight. I initiated Abilify yesterday. He is still staying in bed. I will go ahead and increase the dose to 150 mg a day to help with his lack of motivation, staying in bed most of the time, internally preoccupied, unpredictable, impulsive, very depressed. No side effects with the medication, no sedation, no nausea, no extrapyramidal symptoms. PLAN: We will continue to work the patient in group therapy, milieu therapy, adjust medications. JOB# [id number]
[2018-03-28] MEDS: Multivitamin Tab PO SCH (08:41)
--- NOTE | 2018-03-28 19:46 | Internal Medicine Prog Note ---
Internal Medicine Subjective - Subjective Service Date: 03/28/18 Patient seen and examined:: without staff Patient is:: in bed Per staff patient has:: no adverse event Internal Medicine Objective - Results Result Diagrams: 03/06/18 20:25 03/06/18 20:25 Recent Labs: Laboratory Last Values WBC 7.7 Th/cmm (4.8-10.8) 03/06/18 20:25 RBC 5.25 Mil/cmm (3.80-5.80) 03/06/18 20:25 Hgb 15.6 gm/dL (12-16) 03/06/18 20:25 Hct 46.3 % (41.0-60) 03/06/18 20:25 MCV 88.1 fl (80-99) 03/06/18 20:25 MCH 29.6 pg (27.0-31.0) 03/06/18 20:25 MCHC Differential 33.6 pg (28.0-36.0) 03/06/18 20:25 RDW 13.0 % (11.5-20.0) 03/06/18 20:25 Plt Count 201 Th/cmm (150-400) 03/06/18 20:25 MPV 8.6 fl 03/06/18 20:25 Neutrophils % 70.5 % (40.0-80.0) 03/06/18 20:25 Lymphocytes % 21.6 % (20.0-50.0) 03/06/18 20:25 Monocytes % 5.2 % (2.0-10.0) 03/06/18 20:25 Eosinophils % 2.7 % (0.0-5.0) 03/06/18 20:25 Basophils % 0.0 % (0.0-2.0) 03/06/18 20:25 Sodium 139 mEq/L (136-145) 03/06/18 20:25 Potassium 3.8 mEq/L (3.5-5.1) 03/06/18 20:25 Chloride 106 mEq/L (98-107) 03/06/18 20:25 Carbon Dioxide 27.4 mEq/L (21.0-31.0) 03/06/18 20:25 Anion Gap 9.4 (7.0-16.0) 03/06/18 20:25 BUN 28 mg/dL (7-25) H 03/06/18 20:25 Creatinine 1.0 mg/dL (0.7-1.3) 03/06/18 20:25 Est GFR ( Amer) > 60.0 ml/min (>90) 03/06/18 20:25 Est GFR (Non-Af Amer) > 60.0 ml/min 03/06/18 20:25 BUN/Creatinine Ratio 28.0 03/06/18 20:25 Glucose 100 mg/dL (70-105) 03/06/18 20:25 Calcium 9.9 mg/dL (8.6-10.3) 03/06/18 20:25 Total Bilirubin 0.9 mg/dL (0.3-1.0) 03/06/18 20:25 AST 12 U/L (13-39) L 03/06/18 20:25 ALT 9 U/L (7-52) 03/06/18 20:25 Alkaline Phosphatase 67 U/L (34-104) 03/06/18 20:25 Total Protein 7.4 gm/dL (6.0-8.3) 03/06/18 20:25 Albumin 4.6 gm/dL (4.2-5.5) 03/06/18 20:25 Globulin 2.8 gm/dL 03/06/18 20:25 Albumin/Globulin Ratio 1.6 (1.0-1.8) 03/06/18 20:25 - Physical Exam Vitals and I&O: Vital Signs Temp 98.9 F 03/28/18 14:00 Pulse 64 03/28/18 14:00 Resp 18 03/28/18 14:00 BP 119/72 03/28/18 14:00 Pulse Ox 98 03/28/18 14:00 Intake & Output 03/28/18 03/28/18 03/29/18 06:59 18:59 06:59 Intake Total 250 1000 Balance 250 1000 Intake: Oral 250 1000 Other: # Voids 3 # Bowel Movements 0 Stool Characteristics Soft Soft Active Medications: Current Medications Acetaminophen (Tylenol) 650 mg PO Q4HR PRN PRN Reason: Mild Pain / Temp above 100 Stop: 05/06/18 00:45 Al Hydrox/Mg Hydrox/Simethicone (Maalox) 30 ml PO Q4HR PRN PRN Reason: GI DISTRESS Stop: 05/06/18 00:45 Aripiprazole (Abilify) 15 mg PO DAILY [facility]; Protocol Stop: 05/20/18 08:59 Last Admin: 03/28/18 08:40 Dose: 15 mg Bupropion HCl (Wellbutrin Sr) 150 mg PO DAILY [facility]; Protocol Stop: 05/27/18 08:59 Last Admin: 03/28/18 08:41 Dose: 150 mg Cholecalciferol (Vitamin D3) 3,000 iu PO DAILY [facility] Stop: 05/06/18 08:59 Last Admin: 03/28/18 08:41 Dose: 3,000 iu Docusate Sodium (Colace) 100 mg PO BID [facility] Stop: 05/06/18 08:59 Last Admin: 03/28/18 16:22 Dose: 100 mg Donepezil HCl (Aricept) 10 mg PO HS [facility] Stop: 05/06/18 20:59 Last Admin: 03/27/18 21:08 Dose: 10 mg Escitalopram Oxalate (Lexapro) 20 mg PO DAILY [facility] Stop: 05/13/18 08:59 Last Admin: 03/28/18 08:40 Dose: 20 mg Lorazepam (Ativan) 0.5 mg PO Q4HR PRN; Protocol PRN Reason: Anxiety/Agitation Stop: 04/06/18 00:45 Last Admin: 03/24/18 20:12 Dose: 0.5 mg Magnesium Hydroxide (Milk Of Magnesia) 30 ml PO DAILY PRN PRN Reason: Constipation Stop: 05/06/18 16:54 Memantine (Namenda) 10 mg PO BID [facility] Stop: 05/06/18 08:59 Last Admin: 03/28/18 16:22 Dose: 10 mg Multivitamins/Vitamin C (Theragran) 1 tab PO DAILY [facility] Stop: 05/06/18 08:59 Last Admin: 03/28/18 08:41 Dose: 1 tab Thiamine HCl (Vitamin B1) 100 mg PO DAILY [facility] Stop: 05/06/18 08:59 Last Admin: 03/28/18 08:43 Dose: 100 mg Timolol Maleate (Timoptic 0.5% Ophth Soln) 1 drop EACH EYE BID [facility] Stop: 05/06/18 08:59 Last Admin: 03/28/18 16:22 Dose: 1 drop General: demented HEENT: NC/AT, PERRLA, EOMI, anicteric sclerae, throat clear Neck: Supple, No JVD, No thyromegaly, +2 carotid pulse wo bruit, No LAD Lungs: CTAB Cardiovascular: Normal S1, Normal S2, without murmur Abdomen: soft, non-tender, non-distended Extremities: clear Neurological: no change Internal Medicine Assmt/Plan - Assessment Assessment: 1.DJD. 2.DEMENTIA. 3.PSYCHOSIS. - Plan Plan: CONTINUE ON CURRENT MEDICATION AND DIET. Nutritional Asmnt/Malnutr-PDOC - Dietary Evaluation Malnutrition Findings (Please click <Entered> for more info): Nutritional Asmnt/Malnutrition Start: 03/11/18 14: 48 Text: Status: Complete Freq: Protocol: Document 03/11/18 14:48 LCARTUROG (Rec: 03/11/18 14:55 LCARTUROG [email or web address]) Nutritional Asmnt/Malnutrition Patient General Information Nutritional Screening Moderate Risk Diagnosis psychosis agitation Pertinent Medical Hx/Surgical Hx dementia, DJD Subjective Information Pt not available in room at time of visit. Per EMR, PO intake 100% of meals. Current Diet Order/ Nutrition Support regular Pertinent Medications vit D3, colace, theragran, vit B1 Pertinent Labs 03/06 BUN 28 Nutritional Hx/Data Height 1.68 m Height (Calculated Centimeters) 167.6 Current Weight (lbs) 81.647 kg Weight (Calculated Kilograms) 81.6 Weight (Calculated Grams) 33525.6 [place] Body Weight 142 Body Mass Index (BMI) 29.0 Weight Status Overweight GI Symptoms GI Symptoms None Last BM 710 Difficult in: None Skin Integrity/Comment: intact Current %PO Good (75-100%) Estimated Nutritional Goals BEE in Kcals: Using Current wt Calories/Kcals/Kg 23-27 Kcals Calculated 8305-9426 Protein: Using Current wt Protein g/k.8 Protein Calculated 66 Fluid: ml 1886-2214ml (1ml/kcal) Nutritional Problem No current Nutrition Prob Problem N/A Malnutrition Alert Is there a minimum of two criteria No selected? Query Text:Check all the applicable criteria. A minimum of two criteria are recommended for diagnosis of either severe or non-severe malnutrition. Malnutrition Related to Morbid Obesity Malnutrition related to morbid obesity No Intervention/Recommendation Comments 1. Continue with regular diet as ordered. 2. Monitor PO intake, wt, labs and skin integrity 3. F/U as low risk in 7 days, 03/18 Expected Outcomes/Goals Expected Outcomes/Goals 1. PO intake to meet at least 75% of nutritional needs. 2. Wt stability, skin to remain intact, labs to approach WNL.
--- NOTE | 2018-03-28 23:40 | Progress Notes ---
DATE: 03/28/2018 Case was discussed with staff of the patient, reviewed records. The patient continues to stay in bed, continues to be depressed, easily overwhelmed, internally preoccupied. He is demented, confused, unable to make safe plan for self-care and has smiling appropriately. No side effects with the medication, no sedation, no nausea, no extrapyramidal symptoms. I will continue the patient in group therapy, milieu therapy, and adjust medications as needed. JOB# [id number]
[2018-03-29] MEDS: Multivitamin Tab PO SCH (09:00)
--- NOTE | 2018-03-29 13:16 | Internal Medicine Prog Note ---
Internal Medicine Subjective - Subjective Service Date: 03/29/18 Patient seen and examined:: with staff Patient is:: in bed Per staff patient has:: no adverse event Internal Medicine Objective - Results Result Diagrams: 03/06/18 20:25 03/06/18 20:25 Recent Labs: Laboratory Last Values WBC 7.7 Th/cmm (4.8-10.8) 03/06/18 20:25 RBC 5.25 Mil/cmm (3.80-5.80) 03/06/18 20:25 Hgb 15.6 gm/dL (12-16) 03/06/18 20:25 Hct 46.3 % (41.0-60) 03/06/18 20:25 MCV 88.1 fl (80-99) 03/06/18 20:25 MCH 29.6 pg (27.0-31.0) 03/06/18 20:25 MCHC Differential 33.6 pg (28.0-36.0) 03/06/18 20:25 RDW 13.0 % (11.5-20.0) 03/06/18 20:25 Plt Count 201 Th/cmm (150-400) 03/06/18 20:25 MPV 8.6 fl 03/06/18 20:25 Neutrophils % 70.5 % (40.0-80.0) 03/06/18 20:25 Lymphocytes % 21.6 % (20.0-50.0) 03/06/18 20:25 Monocytes % 5.2 % (2.0-10.0) 03/06/18 20:25 Eosinophils % 2.7 % (0.0-5.0) 03/06/18 20:25 Basophils % 0.0 % (0.0-2.0) 03/06/18 20:25 Sodium 139 mEq/L (136-145) 03/06/18 20:25 Potassium 3.8 mEq/L (3.5-5.1) 03/06/18 20:25 Chloride 106 mEq/L (98-107) 03/06/18 20:25 Carbon Dioxide 27.4 mEq/L (21.0-31.0) 03/06/18 20:25 Anion Gap 9.4 (7.0-16.0) 03/06/18 20:25 BUN 28 mg/dL (7-25) H 03/06/18 20:25 Creatinine 1.0 mg/dL (0.7-1.3) 03/06/18 20:25 Est GFR ( Amer) > 60.0 ml/min (>90) 03/06/18 20:25 Est GFR (Non-Af Amer) > 60.0 ml/min 03/06/18 20:25 BUN/Creatinine Ratio 28.0 03/06/18 20:25 Glucose 100 mg/dL (70-105) 03/06/18 20:25 Calcium 9.9 mg/dL (8.6-10.3) 03/06/18 20:25 Total Bilirubin 0.9 mg/dL (0.3-1.0) 03/06/18 20:25 AST 12 U/L (13-39) L 03/06/18 20:25 ALT 9 U/L (7-52) 03/06/18 20:25 Alkaline Phosphatase 67 U/L (34-104) 03/06/18 20:25 Total Protein 7.4 gm/dL (6.0-8.3) 03/06/18 20:25 Albumin 4.6 gm/dL (4.2-5.5) 03/06/18 20:25 Globulin 2.8 gm/dL 03/06/18 20:25 Albumin/Globulin Ratio 1.6 (1.0-1.8) 03/06/18 20:25 - Physical Exam Vitals and I&O: Vital Signs Temp 98.6 F 03/28/18 21:08 Pulse 65 03/28/18 21:08 Resp 20 03/28/18 21:08 BP 114/64 03/28/18 21:08 Pulse Ox 98 03/28/18 21:08 Intake & Output 03/28/18 03/29/18 03/29/18 18:59 06:59 18:59 Intake Total 1000 60 Balance 1000 60 Intake: Oral 1000 60 Other: # Voids 3 2 # Bowel Movements 0 Stool Characteristics Soft Soft Soft Active Medications: Current Medications Acetaminophen (Tylenol) 650 mg PO Q4HR PRN PRN Reason: Mild Pain / Temp above 100 Stop: 05/06/18 00:45 Al Hydrox/Mg Hydrox/Simethicone (Maalox) 30 ml PO Q4HR PRN PRN Reason: GI DISTRESS Stop: 05/06/18 00:45 Aripiprazole (Abilify) 15 mg PO DAILY [facility]; Protocol Stop: 05/20/18 08:59 Last Admin: 03/29/18 09:01 Dose: 15 mg Bupropion HCl (Wellbutrin) 100 mg PO BID [facility]; Protocol Stop: 05/28/18 16:59 Cholecalciferol (Vitamin D3) 3,000 iu PO DAILY [facility] Stop: 05/06/18 08:59 Last Admin: 03/29/18 09:01 Dose: 3,000 iu Docusate Sodium (Colace) 100 mg PO BID [facility] Stop: 05/06/18 08:59 Last Admin: 03/29/18 09:00 Dose: 100 mg Donepezil HCl (Aricept) 10 mg PO HS [facility] Stop: 05/06/18 20:59 Last Admin: 03/28/18 21:28 Dose: 10 mg Escitalopram Oxalate (Lexapro) 20 mg PO DAILY [facility] Stop: 05/13/18 08:59 Last Admin: 03/29/18 09:00 Dose: 20 mg Lorazepam (Ativan) 0.5 mg PO Q4HR PRN; Protocol PRN Reason: Anxiety/Agitation Stop: 04/06/18 00:45 Last Admin: 03/24/18 20:12 Dose: 0.5 mg Magnesium Hydroxide (Milk Of Magnesia) 30 ml PO DAILY PRN PRN Reason: Constipation Stop: 05/06/18 16:54 Memantine (Namenda) 10 mg PO BID [facility] Stop: 05/06/18 08:59 Last Admin: 03/29/18 09:01 Dose: 10 mg Multivitamins/Vitamin C (Theragran) 1 tab PO DAILY [facility] Stop: 05/06/18 08:59 Last Admin: 03/29/18 09:00 Dose: 1 tab Thiamine HCl (Vitamin B1) 100 mg PO DAILY [facility] Stop: 05/06/18 08:59 Last Admin: 03/29/18 09:01 Dose: 100 mg Timolol Maleate (Timoptic 0.5% Ophth Soln) 1 drop EACH EYE BID [facility] Stop: 05/06/18 08:59 Last Admin: 03/29/18 09:01 Dose: 1 drop General: demented HEENT: NC/AT, PERRLA, EOMI, anicteric sclerae, throat clear Neck: Supple, No JVD, No thyromegaly, +2 carotid pulse wo bruit, No LAD Lungs: CTAB Cardiovascular: Normal S1, Normal S2, without murmur Abdomen: soft, non-tender, non-distended Extremities: clear Neurological: no change Internal Medicine Assmt/Plan - Assessment Assessment: 1.DJD. 2.DEMENTIA. 3.PSYCHOSIS. - Plan Plan: CONTINUE ON CURRENT MEDICATION AND DIET. Nutritional Asmnt/Malnutr-PDOC - Dietary Evaluation Malnutrition Findings (Please click <Entered> for more info): Nutritional Asmnt/Malnutrition Start: 03/11/18 14: 48 Text: Status: Complete Freq: Protocol: Document 03/11/18 14:48 LCARTUROG (Rec: 03/11/18 14:55 LCARTUROG [email or web address]) Nutritional Asmnt/Malnutrition Patient General Information Nutritional Screening Moderate Risk Diagnosis psychosis agitation Pertinent Medical Hx/Surgical Hx dementia, DJD Subjective Information Pt not available in room at time of visit. Per EMR, PO intake 100% of meals. Current Diet Order/ Nutrition Support regular Pertinent Medications vit D3, colace, theragran, vit B1 Pertinent Labs 03/06 BUN 28 Nutritional Hx/Data Height 1.68 m Height (Calculated Centimeters) 167.6 Current Weight (lbs) 81.647 kg Weight (Calculated Kilograms) 81.6 Weight (Calculated Grams) 70041.6 [place] Body Weight 142 Body Mass Index (BMI) 29.0 Weight Status Overweight GI Symptoms GI Symptoms None Last BM 03/10 Difficult in: None Skin Integrity/Comment: intact Current %PO Good (75-100%) Estimated Nutritional Goals BEE in Kcals: Using Current wt Calories/Kcals/Kg 23-27 Kcals Calculated 8785-0091 Protein: Using Current wt Protein g/k.8 Protein Calculated 66 Fluid: ml 1886-2214ml (1ml/kcal) Nutritional Problem No current Nutrition Prob Problem N/A Malnutrition Alert Is there a minimum of two criteria No selected? Query Text:Check all the applicable criteria. A minimum of two criteria are recommended for diagnosis of either severe or non-severe malnutrition. Malnutrition Related to Morbid Obesity Malnutrition related to morbid obesity No Intervention/Recommendation Comments 1. Continue with regular diet as ordered. 2. Monitor PO intake, wt, labs and skin integrity 3. F/U as low risk in 7 days, 03/18 Expected Outcomes/Goals Expected Outcomes/Goals 1. PO intake to meet at least 75% of nutritional needs. 2. Wt stability, skin to remain intact, labs to approach WNL.
--- NOTE | 2018-03-29 21:47 | Progress Notes ---
DATE: 03/29/2018 PROGRESS IN THE UNIT: Case was discussed with staff of the patient, reviewed records. The patient continues to stay in bed, very poor energy and motivation. I did initiate him on Wellbutrin 150 mg a day, I will be increasing the dose to 200 mg or 100 mg twice a day, and so far, no side effects, no sedation, no nausea, no extrapyramidal symptoms. He is internally preoccupied, does not say much, smiles to himself. PLAN: We will continue outpatient group therapy and milieu therapy, adjust medications as needed. JOB# [id number]
[2018-03-30] MEDS: Multivitamin Tab PO SCH (08:41)
--- NOTE | 2018-03-30 21:05 | Progress Notes ---
DATE: 03/30/2018 SUBJECTIVE: Case was discussed with staff of the patient, reviewed records. The patient tolerated the increase in Wellbutrin. Today, he seems to have a little bit more energy. He is eating on bed. He, however, interacting minimally with staff and other patients. He continues to be internally preoccupied. No side effects from the medication, no sedation, no nausea, no extrapyramidal symptoms and I am not sure if this may be his basic level of functioning and we will continue outpatient group therapy, milieu therapy, and adjust the medication as needed. JOB# [id number]
--- NOTE | 2018-03-30 22:17 | Internal Medicine Prog Note ---
Internal Medicine Subjective - Subjective Service Date: 03/30/18 Patient is:: verbal, in bed, confused Per staff patient has:: no adverse event Internal Medicine Objective - Results Result Diagrams: 03/06/18 20:25 03/06/18 20:25 Recent Labs: Laboratory Last Values WBC 7.7 Th/cmm (4.8-10.8) 03/06/18 20:25 RBC 5.25 Mil/cmm (3.80-5.80) 03/06/18 20:25 Hgb 15.6 gm/dL (12-16) 03/06/18 20:25 Hct 46.3 % (41.0-60) 03/06/18 20:25 MCV 88.1 fl (80-99) 03/06/18 20:25 MCH 29.6 pg (27.0-31.0) 03/06/18 20:25 MCHC Differential 33.6 pg (28.0-36.0) 03/06/18 20:25 RDW 13.0 % (11.5-20.0) 03/06/18 20:25 Plt Count 201 Th/cmm (150-400) 03/06/18 20:25 MPV 8.6 fl 03/06/18 20:25 Neutrophils % 70.5 % (40.0-80.0) 03/06/18 20:25 Lymphocytes % 21.6 % (20.0-50.0) 03/06/18 20:25 Monocytes % 5.2 % (2.0-10.0) 03/06/18 20:25 Eosinophils % 2.7 % (0.0-5.0) 03/06/18 20:25 Basophils % 0.0 % (0.0-2.0) 03/06/18 20:25 Sodium 139 mEq/L (136-145) 03/06/18 20:25 Potassium 3.8 mEq/L (3.5-5.1) 03/06/18 20:25 Chloride 106 mEq/L (98-107) 03/06/18 20:25 Carbon Dioxide 27.4 mEq/L (21.0-31.0) 03/06/18 20:25 Anion Gap 9.4 (7.0-16.0) 03/06/18 20:25 BUN 28 mg/dL (7-25) H 03/06/18 20:25 Creatinine 1.0 mg/dL (0.7-1.3) 03/06/18 20:25 Est GFR ( Amer) > 60.0 ml/min (>90) 03/06/18 20:25 Est GFR (Non-Af Amer) > 60.0 ml/min 03/06/18 20:25 BUN/Creatinine Ratio 28.0 03/06/18 20:25 Glucose 100 mg/dL (70-105) 03/06/18 20:25 Calcium 9.9 mg/dL (8.6-10.3) 03/06/18 20:25 Total Bilirubin 0.9 mg/dL (0.3-1.0) 03/06/18 20:25 AST 12 U/L (13-39) L 03/06/18 20:25 ALT 9 U/L (7-52) 03/06/18 20:25 Alkaline Phosphatase 67 U/L (34-104) 03/06/18 20:25 Total Protein 7.4 gm/dL (6.0-8.3) 03/06/18 20:25 Albumin 4.6 gm/dL (4.2-5.5) 03/06/18 20:25 Globulin 2.8 gm/dL 03/06/18 20:25 Albumin/Globulin Ratio 1.6 (1.0-1.8) 03/06/18 20:25 - Physical Exam Vitals and I&O: Vital Signs Temp 98.7 F 03/30/18 20:13 Pulse 67 03/30/18 20:13 Resp 20 03/30/18 20:13 BP 104/72 03/30/18 20:13 Pulse Ox 95 03/30/18 20:13 Intake & Output 03/30/18 03/30/18 03/31/18 06:59 18:59 06:59 Intake Total 240 1200 180 Balance 240 1200 180 Intake: Oral 240 1200 180 Other: # Voids 3 3 2 # Bowel Movements 1 1 0 Stool Characteristics Soft Soft Active Medications: Current Medications Acetaminophen (Tylenol) 650 mg PO Q4HR PRN PRN Reason: Mild Pain / Temp above 100 Stop: 05/06/18 00:45 Al Hydrox/Mg Hydrox/Simethicone (Maalox) 30 ml PO Q4HR PRN PRN Reason: GI DISTRESS Stop: 05/06/18 00:45 Aripiprazole (Abilify) 15 mg PO DAILY [facility]; Protocol Stop: 05/20/18 08:59 Last Admin: 03/30/18 08:41 Dose: 15 mg Bupropion HCl (Wellbutrin) 100 mg PO BID [facility]; Protocol Stop: 05/28/18 16:59 Last Admin: 03/30/18 16:13 Dose: 100 mg Cholecalciferol (Vitamin D3) 3,000 iu PO DAILY [facility] Stop: 05/06/18 08:59 Last Admin: 03/30/18 08:41 Dose: 3,000 iu Docusate Sodium (Colace) 100 mg PO BID [facility] Stop: 05/06/18 08:59 Last Admin: 03/30/18 16:13 Dose: 100 mg Donepezil HCl (Aricept) 10 mg PO HS [facility] Stop: 05/06/18 20:59 Last Admin: 03/30/18 21:20 Dose: 10 mg Escitalopram Oxalate (Lexapro) 20 mg PO DAILY [facility] Stop: 05/13/18 08:59 Last Admin: 03/30/18 08:41 Dose: 20 mg Lorazepam (Ativan) 0.5 mg PO Q4HR PRN; Protocol PRN Reason: Anxiety/Agitation Stop: 04/06/18 00:45 Last Admin: 03/24/18 20:12 Dose: 0.5 mg Magnesium Hydroxide (Milk Of Magnesia) 30 ml PO DAILY PRN PRN Reason: Constipation Stop: 05/06/18 16:54 Memantine (Namenda) 10 mg PO BID [facility] Stop: 05/06/18 08:59 Last Admin: 03/30/18 16:13 Dose: 10 mg Multivitamins/Vitamin C (Theragran) 1 tab PO DAILY [facility] Stop: 05/06/18 08:59 Last Admin: 03/30/18 08:41 Dose: 1 tab Thiamine HCl (Vitamin B1) 100 mg PO DAILY [facility] Stop: 05/06/18 08:59 Last Admin: 03/30/18 08:41 Dose: 100 mg Timolol Maleate (Timoptic 0.5% Ophth Soln) 1 drop EACH EYE BID [facility] Stop: 05/06/18 08:59 Last Admin: 03/30/18 16:13 Dose: 1 drop General: demented HEENT: NC/AT, PERRLA, EOMI, anicteric sclerae, throat clear Neck: Supple, No JVD, No thyromegaly, +2 carotid pulse wo bruit, No LAD Lungs: CTAB Cardiovascular: Normal S1, Normal S2, without murmur Abdomen: soft, non-tender, non-distended Extremities: clear Neurological: no change Internal Medicine Assmt/Plan - Assessment Assessment: 1.DJD. 2.DEMENTIA. 3.PSYCHOSIS. - Plan Plan: CONTINUE ON CURRENT MEDICATION AND DIET. Nutritional Asmnt/Malnutr-PDOC - Dietary Evaluation Malnutrition Findings (Please click <Entered> for more info): Nutritional Asmnt/Malnutrition Start: 03/11/18 14: 48 Text: Status: Complete Freq: Protocol: Document 03/11/18 14:48 LCHENG (Rec: 03/11/18 14:55 LCARTUROG [email or web address]) Nutritional Asmnt/Malnutrition Patient General Information Nutritional Screening Moderate Risk Diagnosis psychosis agitation Pertinent Medical Hx/Surgical Hx dementia, DJD Subjective Information Pt not available in room at time of visit. Per EMR, PO intake 100% of meals. Current Diet Order/ Nutrition Support regular Pertinent Medications vit D3, colace, theragran, vit B1 Pertinent Labs 03/06 BUN 28 Nutritional Hx/Data Height 1.68 m Height (Calculated Centimeters) 167.6 Current Weight (lbs) 81.647 kg Weight (Calculated Kilograms) 81.6 Weight (Calculated Grams) 00226.6 [place] Body Weight 142 Body Mass Index (BMI) 29.0 Weight Status Overweight GI Symptoms GI Symptoms None Last BM 10 Difficult in: None Skin Integrity/Comment: intact Current %PO Good (75-100%) Estimated Nutritional Goals BEE in Kcals: Using Current wt Calories/Kcals/Kg 23-27 Kcals Calculated 5222-8175 Protein: Using Current wt Protein g/k.8 Protein Calculated 66 Fluid: ml 1886-2214ml (1ml/kcal) Nutritional Problem No current Nutrition Prob Problem N/A Malnutrition Alert Is there a minimum of two criteria No selected? Query Text:Check all the applicable criteria. A minimum of two criteria are recommended for diagnosis of either severe or non-severe malnutrition. Malnutrition Related to Morbid Obesity Malnutrition related to morbid obesity No Intervention/Recommendation Comments 1. Continue with regular diet as ordered. 2. Monitor PO intake, wt, labs and skin integrity 3. F/U as low risk in 7 days, 03/18 Expected Outcomes/Goals Expected Outcomes/Goals 1. PO intake to meet at least 75% of nutritional needs. 2. Wt stability, skin to remain intact, labs to approach WNL.
[2018-03-31] MEDS: Multivitamin Tab PO SCH (09:35)
--- NOTE | 2018-03-31 11:55 | Internal Medicine Prog Note ---
Internal Medicine Subjective - Subjective Service Date: 03/31/18 Patient seen and examined:: with staff Patient is:: verbal, in bed, confused Per staff patient has:: no adverse event Internal Medicine Objective - Results Result Diagrams: 03/06/18 20:25 03/06/18 20:25 Recent Labs: Laboratory Last Values WBC 7.7 Th/cmm (4.8-10.8) 03/06/18 20:25 RBC 5.25 Mil/cmm (3.80-5.80) 03/06/18 20:25 Hgb 15.6 gm/dL (12-16) 03/06/18 20:25 Hct 46.3 % (41.0-60) 03/06/18 20:25 MCV 88.1 fl (80-99) 03/06/18 20:25 MCH 29.6 pg (27.0-31.0) 03/06/18 20:25 MCHC Differential 33.6 pg (28.0-36.0) 03/06/18 20:25 RDW 13.0 % (11.5-20.0) 03/06/18 20:25 Plt Count 201 Th/cmm (150-400) 03/06/18 20:25 MPV 8.6 fl 03/06/18 20:25 Neutrophils % 70.5 % (40.0-80.0) 03/06/18 20:25 Lymphocytes % 21.6 % (20.0-50.0) 03/06/18 20:25 Monocytes % 5.2 % (2.0-10.0) 03/06/18 20:25 Eosinophils % 2.7 % (0.0-5.0) 03/06/18 20:25 Basophils % 0.0 % (0.0-2.0) 03/06/18 20:25 Sodium 139 mEq/L (136-145) 03/06/18 20:25 Potassium 3.8 mEq/L (3.5-5.1) 03/06/18 20:25 Chloride 106 mEq/L (98-107) 03/06/18 20:25 Carbon Dioxide 27.4 mEq/L (21.0-31.0) 03/06/18 20:25 Anion Gap 9.4 (7.0-16.0) 03/06/18 20:25 BUN 28 mg/dL (7-25) H 03/06/18 20:25 Creatinine 1.0 mg/dL (0.7-1.3) 03/06/18 20:25 Est GFR ( Amer) > 60.0 ml/min (>90) 03/06/18 20:25 Est GFR (Non-Af Amer) > 60.0 ml/min 03/06/18 20:25 BUN/Creatinine Ratio 28.0 03/06/18 20:25 Glucose 100 mg/dL (70-105) 03/06/18 20:25 Calcium 9.9 mg/dL (8.6-10.3) 03/06/18 20:25 Total Bilirubin 0.9 mg/dL (0.3-1.0) 03/06/18 20:25 AST 12 U/L (13-39) L 03/06/18 20:25 ALT 9 U/L (7-52) 03/06/18 20:25 Alkaline Phosphatase 67 U/L (34-104) 03/06/18 20:25 Total Protein 7.4 gm/dL (6.0-8.3) 03/06/18 20:25 Albumin 4.6 gm/dL (4.2-5.5) 03/06/18 20:25 Globulin 2.8 gm/dL 03/06/18 20:25 Albumin/Globulin Ratio 1.6 (1.0-1.8) 03/06/18 20:25 - Physical Exam Vitals and I&O: Vital Signs Temp 98.6 F 03/31/18 06:12 Pulse 63 03/31/18 06:12 Resp 20 03/31/18 06:12 BP 108/65 03/31/18 06:12 Pulse Ox 95 03/31/18 06:12 Intake & Output 03/30/18 03/31/18 03/31/18 18:59 06:59 18:59 Intake Total 1200 300 Balance 1200 300 Intake: Oral 1200 300 Other: # Voids 3 1 # Bowel Movements 1 0 Stool Characteristics Soft Soft Soft Active Medications: Current Medications Acetaminophen (Tylenol) 650 mg PO Q4HR PRN PRN Reason: Mild Pain / Temp above 100 Stop: 05/06/18 00:45 Al Hydrox/Mg Hydrox/Simethicone (Maalox) 30 ml PO Q4HR PRN PRN Reason: GI DISTRESS Stop: 05/06/18 00:45 Aripiprazole (Abilify) 15 mg PO DAILY [facility]; Protocol Stop: 05/20/18 08:59 Last Admin: 03/31/18 09:34 Dose: 15 mg Bupropion HCl (Wellbutrin) 100 mg PO BID [facility]; Protocol Stop: 05/28/18 16:59 Last Admin: 03/31/18 09:35 Dose: 100 mg Cholecalciferol (Vitamin D3) 3,000 iu PO DAILY [facility] Stop: 05/06/18 08:59 Last Admin: 03/31/18 09:35 Dose: 3,000 iu Docusate Sodium (Colace) 100 mg PO BID [facility] Stop: 05/06/18 08:59 Last Admin: 03/31/18 09:35 Dose: 100 mg Donepezil HCl (Aricept) 10 mg PO HS [facility] Stop: 05/06/18 20:59 Last Admin: 03/30/18 21:20 Dose: 10 mg Escitalopram Oxalate (Lexapro) 20 mg PO DAILY [facility] Stop: 05/13/18 08:59 Last Admin: 03/31/18 09:34 Dose: 20 mg Lorazepam (Ativan) 0.5 mg PO Q4HR PRN; Protocol PRN Reason: Anxiety/Agitation Stop: 04/06/18 00:45 Last Admin: 03/24/18 20:12 Dose: 0.5 mg Magnesium Hydroxide (Milk Of Magnesia) 30 ml PO DAILY PRN PRN Reason: Constipation Stop: 05/06/18 16:54 Memantine (Namenda) 10 mg PO BID [facility] Stop: 05/06/18 08:59 Last Admin: 03/31/18 09:35 Dose: 10 mg Multivitamins/Vitamin C (Theragran) 1 tab PO DAILY [facility] Stop: 05/06/18 08:59 Last Admin: 03/31/18 09:35 Dose: 1 tab Thiamine HCl (Vitamin B1) 100 mg PO DAILY [facility] Stop: 05/06/18 08:59 Last Admin: 03/31/18 09:34 Dose: 100 mg Timolol Maleate (Timoptic 0.5% Ophth Soln) 1 drop EACH EYE BID [facility] Stop: 05/06/18 08:59 Last Admin: 03/31/18 09:35 Dose: 1 drop General: demented HEENT: NC/AT, PERRLA, EOMI, anicteric sclerae, throat clear Neck: Supple, No JVD, No thyromegaly, +2 carotid pulse wo bruit, No LAD Lungs: CTAB Cardiovascular: Normal S1, Normal S2, without murmur Abdomen: soft, non-tender, non-distended Extremities: clear Neurological: no change Internal Medicine Assmt/Plan - Assessment Assessment: 1.DJD. 2.DEMENTIA. 3.PSYCHOSIS. - Plan Plan: CONTINUE ON CURRENT MEDICATION AND DIET. Nutritional Asmnt/Malnutr-PDOC - Dietary Evaluation Malnutrition Findings (Please click <Entered> for more info): Nutritional Asmnt/Malnutrition Start: 03/11/18 14: 48 Text: Status: Complete Freq: Protocol: Document 03/11/18 14:48 ARTUROG (Rec: 03/11/18 14:55 ARTUROG [email or web address]) Nutritional Asmnt/Malnutrition Patient General Information Nutritional Screening Moderate Risk Diagnosis psychosis agitation Pertinent Medical Hx/Surgical Hx dementia, DJD Subjective Information Pt not available in room at time of visit. Per EMR, PO intake 100% of meals. Current Diet Order/ Nutrition Support regular Pertinent Medications vit D3, colace, theragran, vit B1 Pertinent Labs 03/06 BUN 28 Nutritional Hx/Data Height 1.68 m Height (Calculated Centimeters) 167.6 Current Weight (lbs) 81.647 kg Weight (Calculated Kilograms) 81.6 Weight (Calculated Grams) 68125.6 [place] Body Weight 142 Body Mass Index (BMI) 29.0 Weight Status Overweight GI Symptoms GI Symptoms None Last BM 03/10 Difficult in: None Skin Integrity/Comment: intact Current %PO Good (75-100%) Estimated Nutritional Goals BEE in Kcals: Using Current wt Calories/Kcals/Kg 23-27 Kcals Calculated 0257-3178 Protein: Using Current wt Protein g/k.8 Protein Calculated 66 Fluid: ml 1886-2214ml (1ml/kcal) Nutritional Problem No current Nutrition Prob Problem N/A Malnutrition Alert Is there a minimum of two criteria No selected? Query Text:Check all the applicable criteria. A minimum of two criteria are recommended for diagnosis of either severe or non-severe malnutrition. Malnutrition Related to Morbid Obesity Malnutrition related to morbid obesity No Intervention/Recommendation Comments 1. Continue with regular diet as ordered. 2. Monitor PO intake, wt, labs and skin integrity 3. F/U as low risk in 7 days, 03/18 Expected Outcomes/Goals Expected Outcomes/Goals 1. PO intake to meet at least 75% of nutritional needs. 2. Wt stability, skin to remain intact, labs to approach WNL.
--- NOTE | 2018-03-31 13:10 | Discharge Summary ---
DATE OF DISCHARGE: 03/31/2018 IDENTIFYING INFORMATION: The patient is a 67-year-old male. HISTORY OF PRESENT ILLNESS: The patient was agitated, referred from [place]. He did not know why he was here. Denies depression. Denies anxiety. He was decompensating and hallucinating. The patient is sleeping well, eating well, appeared to be fatigued, withdrawn, poor orientation is noted. The patient is apparently also quite aggressive at the group home. He had been hospitalized before. He is a well-known case to me as multiple prior admissions with a history of prior suicide attempt. COURSE IN THE HOSPITAL: The patient was continued with the medication and I did add Abilify and the dose was increased over the course of his stay to 50 mg daily because of paranoia and also he was continued with Aricept 10 mg at bedtime. Lexapro increased to 20 mg a day because of his depression. He was continued on Namenda 10 mg twice a day, multivitamin. He was also on timolol eyedrops. The patient also because of no energy and motivation, the patient was staying in bed most time ____ 100 mg twice a day. The patient was acting in anyway dangerous. He was no longer hallucinating or paranoid. He was sleeping better, eating better. He was feeding himself, so we felt he could be discharged to a lesser level of care. CONDITION ON DISCHARGE: The patient is appropriately dressed, appropriately groomed. No suicidal ideation, no homicidal ideation, no paranoia with still poor energy and motivation. FINAL DIAGNOSES: AXIS I: Major depression, recurrent with psychosis, dementia. MEDICAL DIAGNOSES: As per medical doctor. The patient will be going back to [place]. The patient will follow up with psychiatrist and primary care physician. Continue with the same medication as before. EXPECTED OUTCOME: Stable if the patient complies above. [facility]# [id number]
== END 2018-03-31 16:55 | DRG 885 ==
LOC: ER 19:49 → EDSEX 19:49 → GERO 22:09
PROVIDERS: ADMIT Psychiatry & Neurology Psychiatry; ATTEND Psychiatry & Neurology Psychiatry
DX: F33.3 Major depressive disorder, recurrent, severe with psychotic symptoms (principal); F39 Unspecified mood [affective] disorder; F41.9 Anxiety disorder, unspecified; F03.90 Unspecified dementia, unspecified severity, without behavioral disturbance, psychotic disturbance, mood disturbance, and anxiety; M19.90 Unspecified osteoarthritis, unspecified site
CPT/HCPCS: 36415-UA; 71045-TC; 80053-TC; 85025-TC; 93005; G0410; Z7610